=== PATIENT | female | born 1940 | race Asian ===

== ENCOUNTER 2016-06-18 10:58 | Outpatient (CLI) | payer MEDICARE, OTHER | END 2016-06-18 10:59 | disposition home or self-care (01) | DX: R60.9 Edema, unspecified (principal) ==

== ENCOUNTER 2016-08-02 14:41 | Outpatient (CLI) | payer MEDICARE, OTHER ==
[2016-08-02 18:51] LABS: BASOPHILS % (AUTO) 0.7 %; EOSINOPHILS # (AUTO) 0.1 10^3/uL (0.0-0.7); EOSINOPHILS % (AUTO) 1.3 %; HCT - HEMATOCRIT 35.7 % (37.0-47.0); HGB - HEMOGLOBIN 11.5 g/dL (12.0-16.0); LYMPHOCYTES # (AUTO) 1.3 10^3/uL (1.5-3.5); LYMPHOCYTES % (AUTO) 25.5 %; MEAN CORPUSCULAR HEMOGLOBIN 27.4 pg (27.0-31.0); MEAN CORPUSCULAR HGB CONC 32.2 g/dL (32.0-36.0); MEAN CORPUSCULAR VOLUME 85.2 fL (81.0-99.0); MEAN PLATELET VOLUME 9.7 fL (7.9-10.8); MONOCYTES # (AUTO) 0.4 10^3/uL (0.0-1.0); MONOCYTES % (AUTO) 6.9 %; NEUTROPHILS # (AUTO) 3.4 10^3/uL (1.5-6.6); NEUTROPHILS % (AUTO) 65.6 %; RED BLOOD COUNT 4.19 10^6/uL (4.20-5.40); RED CELL DISTRIBUTION WIDTH 14.5 % (12.0-15.0); UNCORRECTED WHITE BLOOD COUNT 5.2 x10^3/uL; WHITE BLOOD COUNT 5.2 x10^3/uL (4.8-10.8)
[2016-08-02 19:04] LABS: ALBUMIN/GLOBULIN RATIO 1.3 (1.0-2.2); BILIRUBIN,TOTAL 0.7 mg/dL (0.2-1.0); CALCIUM 9.5 mg/dL (8.5-10.3); POTASSIUM 4.4 mmol/L (3.5-5.0); TOTAL PROTEIN 6.8 g/dL (6.7-8.2)
== END 2016-08-02 23:59 | disposition home or self-care (01) ==
LOC: LAB.WCP 14:41
PROVIDERS: ATTEND Family Medicine
DX: M35.3 Polymyalgia rheumatica (principal); M62.82 Rhabdomyolysis
CPT/HCPCS: 36415; 80053; 81599; 82550; 85025

== ENCOUNTER 2016-10-27 08:10 | Outpatient (CLI) | payer MEDICARE, OTHER ==
[2016-10-27 13:16] LABS: ALBUMIN/GLOBULIN RATIO 1.4 (1.0-2.2); BILIRUBIN,TOTAL 0.4 mg/dL (0.2-1.0); BUN - BLOOD UREA NITROGEN 27 mg/dL (6-20); CALCIUM 9.5 mg/dL (8.5-10.3); CARBON DIOXIDE - CO2 25 mmol/L (21-32); CHLORIDE 105 mmol/L (101-111); CHOL/HDL RATIO 4.6 (<4.4); CHOLESTEROL 232 mg/dL; CREATININE 1.2 mg/dL (0.4-1.0); GFR - MDRD 44 (>89); GLUCOSE 88 mg/dL (70-100); HDL CHOLESTEROL 50 mg/dL; POTASSIUM 3.8 mmol/L (3.5-5.0); SODIUM 137 mmol/L (135-145); TOTAL PROTEIN 6.9 g/dL (6.7-8.2); TRIGLYCERIDES 157 mg/dL; VLDL CHOLESTEROL 31 mg/dL
== END 2016-10-27 08:11 | disposition home or self-care (01) ==
LOC: LAB.WCP 08:10
PROVIDERS: ATTEND Physician Assistant Medical
DX: M35.3 Polymyalgia rheumatica (principal); E78.5 Hyperlipidemia, unspecified
CPT/HCPCS: 36415; 80053; 80061

== ENCOUNTER 2017-03-01 09:50 | Outpatient (CLI) | payer MEDICARE, OTHER ==
[2017-03-01 13:30] LABS: ALBUMIN 4.2 g/dL (3.2-5.5); ALBUMIN/GLOBULIN RATIO 1.3 (1.0-2.2); ALKALINE PHOSPHATASE 60 IU/L (42-121); ALT ALANINE AMINOTRANSFERASE 19 IU/L (10-60); AST ASPARTATE AMINOTRANSFERASE 26 IU/L (10-42); BILIRUBIN,TOTAL 0.5 mg/dL (0.2-1.0); BUN - BLOOD UREA NITROGEN 20 mg/dL (6-20); CALCIUM 9.4 mg/dL (8.5-10.3); CARBON DIOXIDE - CO2 27 mmol/L (21-32); CHLORIDE 105 mmol/L (101-111); CHOL/HDL RATIO 3.8 (<4.4); CHOLESTEROL 292 mg/dL; CREATININE 1.2 mg/dL (0.4-1.0); GFR - MDRD 44 (>89); GLUCOSE 90 mg/dL (70-100); HDL CHOLESTEROL 77 mg/dL; LDL CHOLESTEROL,CALCULATED 194 mg/dL; LDL/HDL RATIO 2.5 (<4.4); SODIUM 136 mmol/L (135-145); TOTAL PROTEIN 7.5 g/dL (6.7-8.2); VLDL CHOLESTEROL 21 mg/dL
== END 2017-03-01 09:51 | disposition home or self-care (01) ==
LOC: LAB.WCP 09:50
PROVIDERS: ATTEND Physician Assistant Medical
DX: E78.5 Hyperlipidemia, unspecified (principal)
CPT/HCPCS: 36415; 80053; 80061

== ENCOUNTER 2017-04-01 08:00 | Outpatient (CLI) | payer OTHER, MEDICARE ==
[2017-04-01 19:05] LABS: BASOPHILS % (AUTO) 0.1 %; EOSINOPHILS % (AUTO) 0.4 %; HGB - HEMOGLOBIN 11.3 g/dL (12.0-16.0); LYMPHOCYTES # (AUTO) 1.3 10^3/uL (1.5-3.5); LYMPHOCYTES % (AUTO) 13.2 %; MEAN CORPUSCULAR HGB CONC 32.3 g/dL (32.0-36.0); MEAN CORPUSCULAR VOLUME 83.6 fL (81.0-99.0); MEAN PLATELET VOLUME 9.8 fL (7.9-10.8); MONOCYTES # (AUTO) 0.6 10^3/uL (0.0-1.0); MONOCYTES % (AUTO) 5.5 %; NEUTROPHILS # (AUTO) 8.1 10^3/uL (1.5-6.6); NEUTROPHILS % (AUTO) 80.8 %; PLT - PLATELET COUNT 194 10^3/uL (130-450); RED CELL DISTRIBUTION WIDTH 14.3 % (12.0-15.0); WHITE BLOOD COUNT 10.1 x10^3/uL (4.8-10.8)
[2017-04-01 19:17] LABS: ALBUMIN 4.1 g/dL (3.2-5.5); ALBUMIN/GLOBULIN RATIO 1.5 (1.0-2.2); BILIRUBIN,TOTAL 0.8 mg/dL (0.2-1.0); CALCIUM 9.5 mg/dL (8.5-10.3); CREATININE 1.3 mg/dL (0.4-1.0); TOTAL PROTEIN 6.9 g/dL (6.7-8.2)
== END 2017-04-01 08:01 | disposition home or self-care (01) ==
LOC: LAB.WCP 08:00
PROVIDERS: ATTEND Family Medicine
DX: K92.2 Gastrointestinal hemorrhage, unspecified (principal)
CPT/HCPCS: 36415; 80053; 82150; 83690; 85025

== ENCOUNTER 2017-06-15 08:00 | Outpatient (CLI) | payer OTHER, MEDICARE ==
[2017-06-15 13:59] LABS: ALBUMIN 4.1 g/dL (3.2-5.5); ALBUMIN/GLOBULIN RATIO 1.4 (1.0-2.2); ALKALINE PHOSPHATASE 54 IU/L (42-121); ALT ALANINE AMINOTRANSFERASE 17 IU/L (10-60); AST ASPARTATE AMINOTRANSFERASE 24 IU/L (10-42); BILIRUBIN,TOTAL 0.4 mg/dL (0.2-1.0); BUN - BLOOD UREA NITROGEN 25 mg/dL (6-20); CALCIUM 9.3 mg/dL (8.5-10.3); CARBON DIOXIDE - CO2 26 mmol/L (21-32); CHLORIDE 107 mmol/L (101-111); CHOL/HDL RATIO 3.9 (<4.4); CHOLESTEROL 260 mg/dL; CK- CREATINE KINASE 138 IU/L (22-269); CREATININE 1.3 mg/dL (0.4-1.0); GFR - MDRD 40 (>89); GLUCOSE 90 mg/dL (70-100); HDL CHOLESTEROL 66 mg/dL; LDL CHOLESTEROL,CALCULATED 174 mg/dL; LDL/HDL RATIO 2.6 (<4.4); SODIUM 139 mmol/L (135-145); VLDL CHOLESTEROL 20 mg/dL
== END 2017-06-15 08:01 | disposition home or self-care (01) ==
LOC: LAB.WCP 08:00
PROVIDERS: ATTEND Physician Assistant Medical
DX: E78.5 Hyperlipidemia, unspecified (principal)
CPT/HCPCS: 36415; 80053; 80061; 82550; 83721

== ENCOUNTER 2017-09-13 08:59 | Outpatient (CLI) | payer OTHER, MEDICARE ==
[2017-09-13 13:02] LABS: ALBUMIN 3.5 g/dL (3.2-5.5); ALBUMIN/GLOBULIN RATIO 1.3 (1.0-2.2); ALKALINE PHOSPHATASE 43 IU/L (42-121); ALT ALANINE AMINOTRANSFERASE 18 IU/L (10-60); AST ASPARTATE AMINOTRANSFERASE 24 IU/L (10-42); BILIRUBIN,TOTAL 0.9 mg/dL (0.2-1.0); BUN - BLOOD UREA NITROGEN 27 mg/dL (6-20); CALCIUM 8.9 mg/dL (8.5-10.3); CARBON DIOXIDE - CO2 27 mmol/L (21-32); CHLORIDE 107 mmol/L (101-111); CHOL/HDL RATIO 2.5 (<4.4); CHOLESTEROL 148 mg/dL; CREATININE 1.3 mg/dL (0.4-1.0); GFR - MDRD 40 (>89); GLUCOSE 85 mg/dL (70-100); HDL CHOLESTEROL 60 mg/dL; LDL CHOLESTEROL,CALCULATED 66 mg/dL; LDL/HDL RATIO 1.1 (<4.4); SODIUM 138 mmol/L (135-145); TOTAL PROTEIN 6.2 g/dL (6.7-8.2); VLDL CHOLESTEROL 22 mg/dL
== END 2017-09-13 09:00 | disposition home or self-care (01) ==
LOC: LAB.WCP 08:59
PROVIDERS: ATTEND Physician Assistant Medical
DX: E78.5 Hyperlipidemia, unspecified (principal)
CPT/HCPCS: 36415; 80053; 80061; 83721

== ENCOUNTER 2017-10-05 23:25 | Emergency (ER) | payer OTHER, MEDICARE ==
[2017-10-06] MEDS ORDERED: ONDANSETRON ODT 4 MG TABLET TL STA (00:02)
[2017-10-06 00:22] LABS: BASOPHILS % (AUTO) 0.1 %; HGB - HEMOGLOBIN 10.9 g/dL (12.0-16.0); LYMPHOCYTES # (AUTO) 0.4 10^3/uL (1.5-3.5); LYMPHOCYTES % (AUTO) 6.9 %; MEAN CORPUSCULAR HEMOGLOBIN 28.1 pg (27.0-31.0); MEAN CORPUSCULAR HGB CONC 33.4 g/dL (32.0-36.0); MEAN CORPUSCULAR VOLUME 84.4 fL (81.0-99.0); MONOCYTES % (AUTO) 0.5 %; NEUTROPHILS # (AUTO) 5.7 10^3/uL (1.5-6.6); NEUTROPHILS % (AUTO) 92.5 %; PLT - PLATELET COUNT 167 10^3/uL (130-450); RED BLOOD COUNT 3.86 10^6/uL (4.20-5.40); WHITE BLOOD COUNT 6.2 x10^3/uL (4.8-10.8)
[2017-10-06 00:36] LABS: ALBUMIN 4.4 g/dL (3.2-5.5); ALBUMIN/GLOBULIN RATIO 1.3 (1.0-2.2); BILIRUBIN,TOTAL 0.6 mg/dL (0.2-1.0); CALCIUM 9.7 mg/dL (8.5-10.3); CREATININE 1.4 mg/dL (0.4-1.0); MAGNESIUM 2.1 mg/dL (1.7-2.8); PHOSPHORUS 1.8 mg/dL (2.5-4.6); TOTAL PROTEIN 7.7 g/dL (6.7-8.2)
[2017-10-06 00:53] LABS: BILIRUBIN,URINE NEGATIVE (NEGATIVE); GLUCOSE, URINE (UA) NEGATIVE (NEGATIVE); KETONES,URINE (UA) NEGATIVE (NEGATIVE); LEUKOCYTE ESTERASE, URINE NEGATIVE (NEGATIVE); NITRITE,URINE NEGATIVE (NEGATIVE); OCCULT BLOOD,URINE SMALL (NEGATIVE); PH,URINE 5.5 PH (5.0-7.5); PROTEIN,URINE 100 mg/dL (NEGATIVE); UROBILINOGEN,URINE 0.2 (NORMAL) E.U./dL (NORMAL)
[2017-10-06 01:03] LABS: CLARITY,URINE CLEAR (CLEAR)
[2017-10-06 01:05] LABS: BACTERIA,URINE Rare /HPF (None Seen); MUCUS,URINE Few Strands; RBC,URINE 0-5 /HPF (0-5); SQUAMOUS EPITHELIAL CELL,UR FEW Squamous (<= Few)
[2017-10-06] MEDS ORDERED: SODIUM CHLORIDE 0.9% 1,000 ML IV ONE (01:47)
--- NOTE | 2017-10-06 02:17 | ED Physician Documentation ---
History of Present Illness - Stated complaint Stated Complaint: WEAKNESS/SHAKY - Chief complaint Chief Complaint: General - History obtained from History obtained from: Patient - History of Present Illness Timing: Today - Additonal information Additional information: Patient is a 77 year old female who is presenting to the emergency department for not feeling well. Patient saw her doctor earlier today for knee pain evaluation. Patient went home feeling ok but this evening patient developed nausea, vomiting and generalized weakness. Review of Systems Ten Systems: 10 systems reviewed and negative Constitutional: reports: Chills. denies: Fever GI: reports: Nausea, Vomiting. 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 - Present Medications Home Medications: Ambulatory Orders Medication Instructions Recorded Confirmed Naproxen Sodium [Aleve] 220 mg PO DAILY 06/29/13 06/29/13 Aspirin [Aspir-Low] 81 mg PO ONCE 12/25/15 12/25/15 Atorvastatin Calcium PO ONCE 12/25/15 Calcium Carbonate/Vitamin D3 PO ONCE 12/25/15 [Caltrate 600 Plus D3 Tablet] Losartan Potassium [Cozaar] 100 mg PO 12/25/15 Ondansetron Odt [Zofran] 4 mg TL Q6H PRN #14 tablet 10/06/17 - Allergies Allergies/Adverse Reactions: Allergies Allergy/AdvReac Type Severity Reaction Status Date / Time No Known Drug Allergies Allergy Verified 06/26/12 14:27 - Social History Does the pt smoke?: No Smoking Status: Never smoker Does the pt drink ETOH?: No Does the pt have substance abuse?: No - Immunizations Immunizations are current?: Yes - POLST Patient has POLST: No PD ED PE NORMAL - Vitals Vital signs reviewed: Yes - General General: Alert and oriented X 3, No acute distress, Well developed/nourished - HEENT HEENT: Atraumatic, PERRL - Neck Neck: Supple, no meningeal sign - Cardiac Cardiac: RRR, No murmur - Respiratory Respiratory: No respiratory distress - Abdomen Abdomen: Soft, Non tender, Non distended - Derm Derm: Normal color, Warm and dry, No rash - Extremities Extremities: No deformity - Neuro Neuro: Alert and oriented X 3, appeals representative 2-12 intact, No motor deficit, No sensory deficit, Normal speech Eye Opening: Spontaneous Motor: Obeys Commands Verbal: Oriented GCS Score: 15 - Psych Psych: Normal mood Results - Vitals Vitals: Vital Signs - 24 hr 10/05/17 10/06/17 23:52 01:16 Temperature 36.2 C L 36.6 C Heart Rate 76 71 Respiratory 18 18 Rate Blood Pressure 160/68 H 150/69 H O2 Saturation 100 99 Oxygen O2 Source Room air - EKG (time done) 0213 Rate: Rate (enter#) (69) Rhythm: NSR [place]: Normal Intervals: Normal [place] QRS: Normal Ischemia: Normal ST segments Compare to prior EKG: Old EKG unavailable - Labs Labs: Laboratory Tests 10/06/17 10/06/17 10/06/17 00:20 00:20 00:20 WBC 6.2 RBC 3.86 L Hgb 10.9 L Hct 32.6 L MCV 84.4 MCH 28.1 MCHC 33.4 RDW 15.0 Plt Count 167 MPV 9.0 Neut # (Auto) 5.7 Lymph # (Auto) 0.4 L [place] # (Auto) 0.0 Eos # (Auto) 0.0 Baso # (Auto) 0.0 Absolute Nucleated RBC 0.00 Nucleated RBC % 0.0 Sodium 136 Potassium 4.0 Chloride 102 Carbon Dioxide 24 Anion Gap 10.0 BUN 28 H Creatinine 1.4 H Estimated GFR (MDRD) 36 L Glucose 210 H Calcium 9.7 Phosphorus 1.8 L Magnesium 2.1 Total Bilirubin 0.6 AST 42 ALT 25 Alkaline Phosphatase 59 Troponin I 0.04 Total Protein 7.7 Albumin 4.4 Globulin 3.3 Albumin/Globulin Ratio 1.3 Lipase 43 Urine Color Urine Clarity Urine pH Ur Specific [place] Urine Protein Urine Glucose (UA) Urine Ketones Urine Occult Blood Urine Nitrite Urine Bilirubin Urine Urobilinogen Ur Leukocyte Esterase Urine RBC Urine WBC Ur Squamous Epith Cells Urine Bacteria Urine Mucus Ur Microscopic Review Urine Culture Comments 10/06/17 00:45 WBC RBC Hgb Hct MCV MCH MCHC RDW Plt Count MPV Neut # (Auto) Lymph # (Auto) [place] # (Auto) Eos # (Auto) Baso # (Auto) Absolute Nucleated RBC Nucleated RBC % Sodium Potassium Chloride Carbon Dioxide Anion Gap BUN Creatinine Estimated GFR (MDRD) Glucose Calcium Phosphorus Magnesium Total Bilirubin AST ALT Alkaline Phosphatase Troponin I Total Protein Albumin Globulin Albumin/Globulin Ratio Lipase Urine Color YELLOW Urine Clarity CLEAR Urine pH 5.5 Ur Specific [place] 1.025 Urine Protein 100 H Urine Glucose (UA) NEGATIVE Urine Ketones NEGATIVE Urine Occult Blood SMALL H Urine Nitrite NEGATIVE Urine Bilirubin NEGATIVE Urine Urobilinogen 0.2 (NORMAL) Ur Leukocyte Esterase NEGATIVE Urine RBC 0-5 Urine WBC 0-3 Ur Squamous Epith Cells FEW Squamous Urine Bacteria Rare Urine Mucus Few Strands Ur Microscopic Review INDICATED Urine Culture Comments NOT INDICATED PD MEDICAL DECISION MAKING - ED course Complexity details: reviewed old records, reviewed results, re-evaluated patient , considered differential, d/w patient ED course: Edyta was seen and examined at bedside. labs were drawn and urine was collected. Patient was treated with zofran for nausea. ekg was performed and showed normal sinus. ns bolus was ordered for the patient but iv access was difficult to obtain. patient's symptoms resolved with the zofran and she stated she would rather do oral hydration. patient required no further work up at this time and was stable for discharge with outpatient follow up. - Sepsis Event Vital Signs: Vital Signs - 24 hr 10/05/17 10/06/17 23:52 01:16 Temperature 36.2 C L 36.6 C Heart Rate 76 71 Respiratory 18 18 Rate Blood Pressure 160/68 H 150/69 H O2 Saturation 100 99 Oxygen O2 Source Room air Departure - Departure Disposition: 01 Home, Self Care Clinical Impression: Nausea & vomiting Condition: Good Instructions: ED Diet Vomiting Diarrhea Follow-Up: Claire Morrow PA-C [Primary Care Provider] - As Needed Prescriptions: Ondansetron Odt [Zofran] 4 mg TL Q6H PRN #14 tablet PRN Reason: Nausea / Vomiting Comments: Your diagnostics today were within normal limits. there are no acute abnormalities. You are being prescribed zofran for nausea. It is important that you stay well hydrated and monitor your kidney function with your doctor. You may return to the emergency department at any time for new, worsening or uncontrollable symptoms.
[2017-10-06 02:40] VITALS: BP 141/67
== END 2017-10-06 02:59 | disposition home or self-care (01) ==
LOC: ED 23:25
DX: R11.2 Nausea with vomiting, unspecified (principal); I10 Essential (primary) hypertension; Z79.82 Long term (current) use of aspirin; Z79.1 Long term (current) use of non-steroidal anti-inflammatories (NSAID)
CPT/HCPCS: 36415; 80053; 81001; 83690; 83735; 84100; 84484; 85025; 93005; 99283; Q0162; 81003; 87086

== ENCOUNTER 2018-03-15 08:45 | Outpatient (CLI) | payer OTHER, MEDICARE ==
[2018-03-15 13:01] LABS: BASOPHILS % (AUTO) 0.3 %; EOSINOPHILS # (AUTO) 0.1 10^3/uL (0.0-0.7); EOSINOPHILS % (AUTO) 1.6 %; HGB - HEMOGLOBIN 10.5 g/dL (12.0-16.0); LYMPHOCYTES # (AUTO) 1.5 10^3/uL (1.5-3.5); MEAN CORPUSCULAR HEMOGLOBIN 28.3 pg (27.0-31.0); MEAN CORPUSCULAR HGB CONC 33.5 g/dL (32.0-36.0); MEAN CORPUSCULAR VOLUME 84.6 fL (81.0-99.0); MEAN PLATELET VOLUME 9.8 fL (7.9-10.8); MONOCYTES # (AUTO) 0.5 10^3/uL (0.0-1.0); MONOCYTES % (AUTO) 6.8 %; NEUTROPHILS # (AUTO) 4.5 10^3/uL (1.5-6.6); NEUTROPHILS % (AUTO) 68.3 %; PLT - PLATELET COUNT 162 10^3/uL (130-450); RED CELL DISTRIBUTION WIDTH 15.4 % (12.0-15.0); WHITE BLOOD COUNT 6.6 x10^3/uL (4.8-10.8)
[2018-03-15 13:26] LABS: ALBUMIN 3.9 g/dL (3.2-5.5); ALKALINE PHOSPHATASE 41 IU/L (42-121); ALT ALANINE AMINOTRANSFERASE 19 IU/L (10-60); AST ASPARTATE AMINOTRANSFERASE 24 IU/L (10-42); BILIRUBIN,TOTAL 0.8 mg/dL (0.2-1.0); BUN - BLOOD UREA NITROGEN 26 mg/dL (6-20); CALCIUM 8.8 mg/dL (8.5-10.3); CARBON DIOXIDE - CO2 27 mmol/L (21-32); CHLORIDE 105 mmol/L (101-111); CREATININE 1.1 mg/dL (0.4-1.0); GFR - MDRD 48 (>89); GLUCOSE 93 mg/dL (70-100); SODIUM 137 mmol/L (135-145); TOTAL PROTEIN 6.4 g/dL (6.7-8.2)
[2018-03-15 13:27] LABS: ALBUMIN/GLOBULIN RATIO 1.6 (1.0-2.2); CHOL/HDL RATIO 2.3 (<4.4); CHOLESTEROL 149 mg/dL; HDL CHOLESTEROL 66 mg/dL; LDL CHOLESTEROL,CALCULATED 67 mg/dL; VLDL CHOLESTEROL 16 mg/dL
== END 2018-03-15 23:59 | disposition home or self-care (01) ==
LOC: LAB.WCP 08:45
PROVIDERS: ATTEND Physician Assistant Medical
DX: E78.5 Hyperlipidemia, unspecified (principal); D64.9 Anemia, unspecified
CPT/HCPCS: 36415; 80053; 80061; 83721; 85025

== ENCOUNTER 2018-06-14 13:16 | Outpatient (CLI) | payer OTHER, MEDICARE ==
--- NOTE | 2018-06-14 14:44 | Mammography Report ---
Reason: SACROCOCCYGEAL DISORDERS, NOT ELSEWHERE CLASSIFIED Procedure Date: 06/14/2018 Accession Number: [id number] / [id number] Procedure: MGN - Screening Mammo Dig Bilat CPT Code: FULL RESULT: EXAM: Screening Mammo Dig Bilat DATE: 06/14/2018 1:40 PM CLINICAL HISTORY: Routine screening TECHNIQUE: (B) - Bilateral CC and MLO views were obtained. COMPARISON: 11/26/2015, 01/18/2014, 01/06/2013 PARENCHYMAL PATTERN: (A) - The breasts demonstrate scattered fibroglandular densities bilaterally. FINDINGS: There is no significant interval change. There are no suspicious masses, calcifications, or areas of distortion. IMPRESSION: Negative examination. BI-RADS category 1. RECOMMENDATION: (ANNUAL) - Recommend routine annual screening mammography. BI-RADS CATEGORY: (1) - Negative. STANDARD QUALIFYING STATEMENTS: 1. This examination was not reviewed with the aid of Computer-Aided Detection (CAD). 2. A negative or benign imaging report should not preclude biopsy if clinically suspicious findings are present. 3. Dense breasts may obscure an underlying neoplasm. 4. This examination was reviewed without the aid of 3D breast imaging (tomosynthesis).
== END 2018-06-14 13:17 | disposition home or self-care (01) ==
LOC: DI.N 13:16
DX: Z12.31 Encounter for screening mammogram for malignant neoplasm of breast (principal)
CPT/HCPCS: 77067

== ENCOUNTER 2018-09-22 08:48 | Outpatient (CLI) | payer OTHER, MEDICARE ==
[2018-09-22 12:01] LABS: BASOPHILS % (AUTO) 0.6 %; EOSINOPHILS # (AUTO) 0.1 10^3/uL (0.0-0.7); LYMPHOCYTES # (AUTO) 1.9 10^3/uL (1.5-3.5); LYMPHOCYTES % (AUTO) 35.7 %; MEAN CORPUSCULAR HEMOGLOBIN 26.7 pg (27.0-31.0); MEAN CORPUSCULAR VOLUME 86.2 fL (81.0-99.0); MONOCYTES # (AUTO) 0.4 10^3/uL (0.0-1.0); MONOCYTES % (AUTO) 6.6 %; NEUTROPHILS % (AUTO) 54.9 %; PLT - PLATELET COUNT 166 10^3/uL (130-450); RED BLOOD COUNT 4.12 10^6/uL (4.20-5.40); RED CELL DISTRIBUTION WIDTH 14.6 % (12.0-15.0); WHITE BLOOD COUNT 5.4 x10^3/uL (4.8-10.8)
[2018-09-22 12:30] LABS: % IRON SATURATION 19 % (20-50); ALBUMIN 3.8 g/dL (3.2-5.5); ALBUMIN/GLOBULIN RATIO 1.2 (1.0-2.2); ALKALINE PHOSPHATASE 55 IU/L (42-121); ALT ALANINE AMINOTRANSFERASE 18 IU/L (10-60); AST ASPARTATE AMINOTRANSFERASE 25 IU/L (10-42); BILIRUBIN,TOTAL 0.5 mg/dL (0.2-1.0); BUN - BLOOD UREA NITROGEN 20 mg/dL (6-20); CALCIUM 9.2 mg/dL (8.5-10.3); CARBON DIOXIDE - CO2 25 mmol/L (21-32); CHLORIDE 108 mmol/L (101-111); CHOL/HDL RATIO 2.3 (<4.4); CHOLESTEROL 166 mg/dL; CREATININE 1.2 mg/dL (0.4-1.0); GFR - MDRD 43 (>89); GLUCOSE 86 mg/dL (70-100); HDL CHOLESTEROL 73 mg/dL; IRON 59 ug/dL (28-170); LDL CHOLESTEROL,CALCULATED 78 mg/dL; LDL/HDL RATIO 1.1 (<4.4); SODIUM 141 mmol/L (135-145); TOTAL IRON BINDING CAPACITY 318 ug/dL (250-450); TRANSFERRIN 227 mg/dL (192-382); VLDL CHOLESTEROL 15 mg/dL
[2018-09-22 12:39] LABS: FERRITIN 26.5 ng/mL (11.0-306.8)
[2018-09-22 12:42] LABS: FOLATE 10.84 ng/mL (5.90 - >24.8)
== END 2018-09-22 23:59 | disposition home or self-care (01) ==
LOC: LAB.WCP 08:48
PROVIDERS: ATTEND Physician Assistant Medical
DX: E78.5 Hyperlipidemia, unspecified (principal); D64.9 Anemia, unspecified
CPT/HCPCS: 36415; 80053; 80061; 82607; 82728; 82746; 83540; 83721; 84466; 85025

== ENCOUNTER 2019-01-19 12:56 | Emergency (ER) | payer BC, MEDICARE, OTHER ==
[2019-01-19] MEDS ORDERED: BUPIVACAINE 0.5% PF 30 ML VIAL SUBQ ONE (13:36)
[2019-01-19] MEDS ORDERED: LIDOCAINE 1%-EPI 1:100000 20 ML MDV SUBQ STA (13:36)
--- NOTE | 2019-01-19 13:38 | ED Physician Documentation ---
PD HPI LOWER EXT INJURY - Stated complaint Stated Complaint: knee pain - Chief complaint Chief Complaint: Ext Problem - History of Present Illness PD HPI LOW EXT INJURY LOCATION: Left (78-year-old woman has been having ongoing problems with her left knee for some time. She saw an orthopedic surgeon a couple of months ago. It sounds like she was diagnosed with And osteoarthritic effusion. X-rays done in November showed DJD with a Kellgren/Elliott score of 2. She had a cortisone injection in the knee which was helpful for a little bit, more recently she is had more swelling. Anterior knee pain. She was seen in urgent care 6 days ago and prescribed prednisone which is only been mildly helpful. 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 - Present Medications Home Medications: Ambulatory Orders Medication Instructions Recorded Confirmed Naproxen Sodium [Aleve] 220 mg PO DAILY 06/29/13 06/29/13 Aspirin [Aspir-Low] 81 mg PO ONCE 12/25/15 12/25/15 Atorvastatin Calcium PO ONCE 12/25/15 Calcium Carbonate/Vitamin D3 PO ONCE 12/25/15 [Caltrate 600 Plus D3 Tablet] Losartan Potassium [Cozaar] 100 mg PO 12/25/15 Ondansetron Odt [Zofran] 4 mg TL Q6H PRN #14 tablet 10/06/17 Hydrocodone/Acetaminophen 1 - 2 each PO Q6H PRN #14 tablet 01/19/19 [Hydrocodon-Acetaminophen 5-325] Meloxicam [Mobic] 7.5 mg PO BID PRN #20 tablet 01/19/19 - Allergies Allergies/Adverse Reactions: Allergies Allergy/AdvReac Type Severity Reaction Status Date / Time No Known Drug Allergies Allergy Verified 01/19/19 13:06 - Social History Does the pt smoke?: No Smoking Status: Never smoker Does the pt drink ETOH?: No Does the pt have substance abuse?: No - Immunizations Immunizations are current?: Yes - POLST Patient has POLST: No PD ED PE NORMAL - Vitals Vital signs reviewed: Yes - General General: Alert and oriented X 3, No acute distress - Extremities Extremities: Other (There is a moderate to large left knee effusion with no bony tenderness. No warmth or redness. Passive range of motion is relatively painless but starts to become painful with more significant flexion.) - Neuro Neuro: Alert and oriented X 3, Normal speech Results - Vitals Vitals: Vital Signs - 24 hr 01/19/19 01/19/19 13:06 14:15 Temperature 36.6 C Heart Rate 78 76 Respiratory 16 16 Rate Blood Pressure 155/66 H 150/70 H O2 Saturation 99 100 Oxygen O2 Source Room air - Labs Labs: Microbiology 01/19/19 14:00 Body Fluid Culture - Preliminary Synovial Fluid Laboratory Tests 01/19/19 01/19/19 14:00 14:00 Fluid Source SYNOVIAL Fluid Color YELLOW Fluid Clarity CLOUDY Fluid WBC 84178 Fluid RBC 3000 Fluid Neutrophils % 11 Fluid Lymphocytes % 72 Fluid Monocytes % 12 Fluid Macrophages % 5 Fluid Crystals NONE SEEN Procedures - General procedure General procedure: Verbal informed consent the left knee was prepped and draped using ChloraPrep and using a medial approach she was initially anesthetized with 1% lidocaine and then 30 mL of normal looking knee fluid was evacuated from the left knee with a 18-gauge needle and sent for crystals, culture, cell count. Then using continued sterile technique 5 mL of Marcaine was instilled. Departure - Departure Disposition: 01 Home, Self Care Clinical Impression: Knee effusion, left Condition: Good Record reviewed to determine appropriate education?: Yes Instructions: ED Effusion Knee Follow-Up: Moshe Mcleod MD [Provider Admit Priv/Credential] - Prescriptions: Hydrocodone/Acetaminophen [Hydrocodon-Acetaminophen 5-325] 1 - 2 each PO Q6H PRN #14 tablet PRN Reason: pain Meloxicam [Mobic] 7.5 mg PO BID PRN #20 tablet PRN Reason: Pain Comments: If there are any important findings on the knee fluid I will call you, given the history I expect though that this is a simple "arthritic" effusion. You can follow-up with an orthopedic surgeon, I will give you a name and number. Also I am giving you a different anti-inflammatory and some pain medication. Return for new or worsening symptoms. Discharge Date/Time: 01/19/19 14:15
[2019-01-19] MEDS ORDERED: LIDOCAINE 1%-EPI 1:100000 20 ML MDV ONE (13:41)
[2019-01-19] MEDS ORDERED: BUPIVACAINE 0.5%-EPI 1:200000 PF 10 ML VIAL SUBQ STA (13:43)
[2019-01-19] MEDS ORDERED: BUPIVACAINE 0.25% PF 30 ML VIAL SUBQ STA (13:43)
[2019-01-19] MEDS ORDERED: BUPIVACAINE 0.5% PF 10 ML VIAL SUBQ ONE (14:00)
[2019-01-19 14:16] VITALS: BP 150/70
[2019-01-19 15:06] LABS: BF SOURCE SYNOVIAL; CC,BF RBC 3000 /mm^3
[2019-01-19 15:07] LABS: BF COLOR YELLOW
[2019-01-19 15:17] LABS: LYMPHOCYTES %,BODY FLUID 72; MACROPHAGES %,BODY FLUID 5 %; MONOCYTES %,BODY FLUID 12 %
== END 2019-01-19 14:15 | disposition home or self-care (01) ==
LOC: ED 12:56
DX: M17.12 Unilateral primary osteoarthritis, left knee (principal); M25.462 Effusion, left knee; I10 Essential (primary) hypertension; Z79.82 Long term (current) use of aspirin
CPT/HCPCS: 20610; 87070; 87205; 89051; 89060

== ENCOUNTER 2019-01-22 10:03 | Emergency (ER) | payer BC, MEDICARE, OTHER ==
[2019-01-22] MEDS ORDERED: BUPIVACAINE 0.5% PF 10 ML VIAL SUBQ STA (10:32)
--- NOTE | 2019-01-22 11:32 | ED Physician Documentation ---
PD HPI LOWER EXT INJURY - Stated complaint Stated Complaint: KNEE PX - Chief complaint Chief Complaint: Ext Problem - History obtained from History obtained from: Patient, Family - History of Present Illness PD HPI LOW EXT INJURY LOCATION: Right, Knee Type of injury: Other (no injury). No: Fall, Twist, Blunt / blow, Penetrating / stab / GSW, Laceration, Puncture wound, Foreign body, Crush, Burn Where injury occurred: Home Timing - onset: How many weeks ago (1) Timing - duration: Weeks (1) Timing - details: Gradual onset, Still present, Other (worsened) Severity Comments: moderate Improved by: Immobilization Worsened by: Moving, Palpating, Other (weight bearing, states she cannot walk) Associated symptoms: Swelling. No: Weakness, Numbness, Tingling, Discolored Contributing factors: No: Anticoagulated, Prior ortho surgery, Prosthetic joint, Work related Similar symptoms before: Work up / diagnostics (was seen in the ED 3 days ago for the same symptoms and had a joint arthrocentesis performed with cell count and cultures sent which were negative and suggestive of likely inflammatory arthritis.) - Treatment prior to arrival Treatment prior to arrival: meloxicam and vicodin without relief. Pt had fluid taken off her knee 3 days ago but it recurred. Review of Systems Ten Systems: 10 systems reviewed and negative Constitutional: denies: Fever Cardiac: reports: Reviewed and negative Respiratory: reports: Reviewed and negative GI: reports: Reviewed and negative Skin: reports: Reviewed and negative. denies: Rash Musculoskeletal: reports: Joint pain, Joint swelling, Pain with weight bearing Neurologic: denies: Generalized weakness, Focal weakness, Numbness Endocrine: reports: Reviewed and negative. 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 - Present Medications Home Medications: Ambulatory Orders Medication Instructions Recorded Confirmed Naproxen Sodium [Aleve] 220 mg PO DAILY 06/29/13 06/29/13 Aspirin [Aspir-Low] 81 mg PO ONCE 12/25/15 12/25/15 Atorvastatin Calcium PO ONCE 12/25/15 Calcium Carbonate/Vitamin D3 PO ONCE 12/25/15 [Caltrate 600 Plus D3 Tablet] Losartan Potassium [Cozaar] 100 mg PO 12/25/15 Ondansetron Odt [Zofran] 4 mg TL Q6H PRN #14 tablet 10/06/17 Hydrocodone/Acetaminophen 1 - 2 each PO Q6H PRN #14 tablet 01/19/19 [Hydrocodon-Acetaminophen 5-325] Meloxicam [Mobic] 7.5 mg PO BID PRN #20 tablet 01/19/19 - Allergies Allergies/Adverse Reactions: Allergies Allergy/AdvReac Type Severity Reaction Status Date / Time No Known Drug Allergies Allergy Verified 01/22/19 10:13 - Social History Does the pt smoke?: No Smoking Status: Never smoker Does the pt drink ETOH?: No Does the pt have substance abuse?: No - Immunizations Immunizations are current?: Yes - POLST Patient has POLST: No PD ED PE NORMAL - Vitals Vital signs reviewed: Yes - General General: Alert and oriented X 3, No acute distress, Well developed/nourished - HEENT HEENT: Atraumatic, Moist mucous membranes - Neck Neck: Supple, no meningeal sign - Cardiac Cardiac: RRR - Respiratory Respiratory: No respiratory distress - Female Female : Deferred - Rectal Rectal: Deferred - Derm Derm: Normal color, Warm and dry, No rash - Extremities Extremities: No deformity, No calf tenderness / cord - Neuro Neuro: Alert and oriented X 3, No motor deficit, No sensory deficit, Normal speech Eye Opening: Spontaneous Motor: Obeys Commands Verbal: Oriented GCS Score: 15 - Psych Psych: Normal mood, Normal affect PD ED PE EXPANDED - Extremities Extremities: Right knee (swelling present particularly laterall and superiorly. no redness, no warmth. Pt has full active and passive ROm but some pain with flexion and weight bearing. no ligamentous laxity ) Results - Vitals Vitals: Vital Signs - 24 hr 01/22/19 01/22/19 10:10 11:37 Temperature 36.4 C L Heart Rate 69 66 Respiratory 16 18 Rate Blood Pressure 147/77 H 143/69 H O2 Saturation 100 100 Oxygen O2 Source Room air Procedures - Arthrocentesis Joint: Knee, Right Preparation: Consent obtained (verbal consent), Sterile prep and drape, Ultrasound used Anesthesia: Marcaine 0.5% (10cc) Fluid: Clear Aftercare: Dressing applied, No complications, Patient tolerated well - Bedside sono Bedside sono by EMP: R knee US shows a large knee effusion present PD MEDICAL DECISION MAKING - ED course Complexity details: reviewed old records, re-evaluated patient, considered differential, d/w patient, d/w family ED course: ddx- gout, inflammatory arthritis, osteoarthritis, septic joint, bursitis 78 y/o F with a recurrent knee effusion, has outpt f/u with Ortho but pain today is unbearable and pt unable to ambulate due to discomfort. She has no fever, no redness or warmth of the knee to suggest infection. She improved a few days ago with a joint tap. Cell counts and cultures from that time not suggestive of infection. Discussed with pt and family benefits and risks of another tap including infection, bleeding. She would like to go forth with the tap. This was performed without complication. Given cell counts and cultures were sent 3 days ago and were neg and pt's fluid is clear again and her clinical pictures is not suggestive of infection will not resend. Injected joint with bupivacaine and pt given an pearl wrap. She is stable for discharge with outpt f/u and return precautions in case of increasing pain, redness, fever or new concerning symptoms. Departure - Departure Disposition: 01 Home, Self Care Clinical Impression: Effusion, left knee Condition: Stable Record reviewed to determine appropriate education?: Yes Instructions: ED Effusion Knee Follow-Up: your, doctor [Other] Comments: You had a left knee effusion (fluid on the knee) that was drained here. You had a long acting anesthetic injected back into the joint. You should continue your home medications and may use an pearl wrap for pain and support. Return to the ED if you develop a fever or redness or increased pain. Discharge Date/Time: 01/22/19 11:37
[2019-01-22 11:37] VITALS: BP 143/69
== END 2019-01-22 11:37 | disposition home or self-care (01) ==
LOC: ED 10:03
DX: M25.462 Effusion, left knee (principal); M25.562 Pain in left knee; I10 Essential (primary) hypertension; Z79.82 Long term (current) use of aspirin
CPT/HCPCS: 20610

== ENCOUNTER 2019-03-07 09:40 | Outpatient (CLI) | payer BC, MEDICARE, OTHER ==
[2019-03-07 12:03] LABS: BASOPHILS % (AUTO) 0.5 %; EOSINOPHILS # (AUTO) 0.1 10^3/uL (0.0-0.7); EOSINOPHILS % (AUTO) 2.4 %; HGB - HEMOGLOBIN 10.7 g/dL (12.0-16.0); LYMPHOCYTES # (AUTO) 1.4 10^3/uL (1.5-3.5); LYMPHOCYTES % (AUTO) 26.3 %; MEAN CORPUSCULAR HEMOGLOBIN 27.9 pg (27.0-31.0); MEAN CORPUSCULAR HGB CONC 32.1 g/dL (32.0-36.0); MEAN CORPUSCULAR VOLUME 86.9 fL (81.0-99.0); MEAN PLATELET VOLUME 11.4 fL (7.9-10.8); MONOCYTES # (AUTO) 0.4 10^3/uL (0.0-1.0); MONOCYTES % (AUTO) 6.9 %; NEUTROPHILS # (AUTO) 3.5 10^3/uL (1.5-6.6); NEUTROPHILS % (AUTO) 63.5 %; PLT - PLATELET COUNT 195 10^3/uL (130-450); RED BLOOD COUNT 3.83 10^6/uL (4.20-5.40); RED CELL DISTRIBUTION WIDTH 13.8 % (12.0-15.0); WHITE BLOOD COUNT 5.5 x10^3/uL (4.8-10.8)
[2019-03-07 12:30] LABS: ALBUMIN/GLOBULIN RATIO 1.3 (1.0-2.2); ALKALINE PHOSPHATASE 49 IU/L (42-121); ALT ALANINE AMINOTRANSFERASE 20 IU/L (10-60); AST ASPARTATE AMINOTRANSFERASE 24 IU/L (10-42); BILIRUBIN,TOTAL 0.7 mg/dL (0.2-1.0); BUN - BLOOD UREA NITROGEN 24 mg/dL (6-20); CALCIUM 9.1 mg/dL (8.5-10.3); CARBON DIOXIDE - CO2 27 mmol/L (21-32); CHLORIDE 107 mmol/L (101-111); CREATININE 1.2 mg/dL (0.4-1.0); GFR - MDRD 43 (>89); GLUCOSE 93 mg/dL (70-100); SODIUM 139 mmol/L (135-145)
[2019-03-07 12:55] LABS: CRP - C-REACTIVE PROTEIN < 1.0 mg/dL (0-1.0)
[2019-03-07 12:56] LABS: CHOL/HDL RATIO 4.1 (<4.4); CHOLESTEROL 271 mg/dL; HDL CHOLESTEROL 66 mg/dL; LDL CHOLESTEROL,CALCULATED 177 mg/dL; LDL/HDL RATIO 2.7 (<4.4); VLDL CHOLESTEROL 28 mg/dL
== END 2019-03-07 23:59 | disposition home or self-care (01) ==
LOC: LAB.WCP 09:40
PROVIDERS: ATTEND Nurse Practitioner Family
DX: R51 Headache (principal); E78.5 Hyperlipidemia, unspecified
CPT/HCPCS: 36415; 80053; 80061; 83721; 85025; 85651; 86140

== ENCOUNTER 2019-03-15 08:30 | Outpatient (CLI) | payer BC, MEDICARE, OTHER | END 2019-03-15 08:31 | disposition home or self-care (01) | LOC: LAB.WCP 08:30 | PROVIDERS: ATTEND Nurse Practitioner Family | DX: H53.9 Unspecified visual disturbance (principal); R51 Headache | CPT/HCPCS: 36415; 85651; 86140 ==

== ENCOUNTER 2019-03-28 09:44 | Outpatient (CLI) | payer BC, MEDICARE, OTHER ==
[2019-03-28 12:23] LABS: ALBUMIN 3.5 g/dL (3.2-5.5); ALBUMIN/GLOBULIN RATIO 1.1 (1.0-2.2); BILIRUBIN,TOTAL 0.8 mg/dL (0.2-1.0); CALCIUM 10.3 mg/dL (8.5-10.3); CREATININE 1.3 mg/dL (0.4-1.0); TOTAL PROTEIN 6.7 g/dL (6.7-8.2)
== END 2019-03-28 23:59 | disposition home or self-care (01) ==
LOC: LAB.WCP 09:44
PROVIDERS: ATTEND Nurse Practitioner Family
DX: R10.9 Unspecified abdominal pain (principal)
CPT/HCPCS: 36415; 80053; 82150; 83690

== ENCOUNTER 2019-03-30 14:07 | Outpatient (CLI) | payer BC, MEDICARE, OTHER ==
--- NOTE | 2019-03-30 16:25 | CT Report ---
Reason: VISUAL CHANGES, TEMPORAL HEADACHE Procedure Date: 03/30/2019 Accession Number: [id number] / [id number] Procedure: CT - HEAD WO CPT Code: Final Report FULL RESULT: EXAM: CT HEAD EXAM DATE: 03/30/2019 02:19 PM. CLINICAL HISTORY: Visual changes, temporal headache. COMPARISON: None. TECHNIQUE: Multiaxial CT images were obtained from the foramen magnum to the vertex. Reformats: Sagittal and coronal. IV contrast: None. In accordance with CT protocol optimization, one or more of the following dose reduction techniques were utilized for this exam: automated exposure control, adjustment of mA and/or KV based on patient size, or use of iterative reconstructive technique. FINDINGS: Parenchyma: No intraparenchymal hemorrhage. No evidence of mass, midline shift, or CT findings of infarction. Mahoney-white differentiation is distinct. Extraaxial Spaces: Normal for age. No subdural or epidural collections identified. Ventricles: Normal in size and position. Sinuses and Orbits: Imaged paranasal sinuses, orbits, and mastoids show no significant abnormality. Bones: Nonspecific chronic appearing 7 x 16 mm sclerotic focus centered along the inner table of the right frontal skull on image 9 of series 4, no associated intracranial expansile soft tissue mass. Otherwise unremarkable appearance of the calvarium. Other: Small midline density just under the skin of the upper margin of the nose, probably incomplete visualization of a nasal implant. Bilateral calcifications of the cavernous ICA segments. IMPRESSION: 1. No CT evidence of acute intracranial abnormality, unremarkable appearance of the brain for age. 2. Nonspecific asymmetric focus of osseous sclerosis along the inner surface of the right frontal bone. This has the appearance of a chronic process and may be incidental. Hyperostosis related to a subtle plaque-like meningioma might also be considered. Metastatic disease is less likely. If no prior CT imaging can be found for purposes of comparison, to confirm stability, additional characterization could include follow-up CT or MRI. 3. Intracranial atherosclerosis. RADIA
== END 2019-03-30 14:08 | disposition home or self-care (01) ==
LOC: DI 14:07
PROVIDERS: ATTEND Nurse Practitioner Family
DX: I67.2 Cerebral atherosclerosis (principal); R93.0 Abnormal findings on diagnostic imaging of skull and head, not elsewhere classified
CPT/HCPCS: 70450

== ENCOUNTER 2019-05-03 15:46 | Outpatient (CLI) | payer BC, MEDICARE, OTHER ==
[2019-05-03] MEDS ORDERED: GADOBUTROL 7.5 MMOL/7.5 ML VIAL ONE (17:04)
[2019-05-03] MEDS ORDERED: GADOBUTROL 7.5 MMOL/7.5 ML VIAL IVP ONE (17:51)
--- NOTE | 2019-05-03 19:26 | MRI Report ---
Reason: ABNORMAL CT SCAN Procedure Date: 05/03/2019 Accession Number: [id number] / [id number] Procedure: MRI - Brain W/WO CPT Code: Final Report FULL RESULT: EXAM: MRI BRAIN WITHOUT AND WITH CONTRAST EXAM DATE: 05/03/2019 06:06 PM. CLINICAL HISTORY: Visual changes. Temporal headache. Follow-up abnormal CT showing asymmetric plaque-like bony sclerosis along the inner surface of the right frontal bone. COMPARISON: HEAD W/O 03/30/2019 2:19 PM. TECHNIQUE: Multiplanar, multisequence T1-weighted and fluid-sensitive MR sequences of the brain were performed before and after administration of intravenous contrast. Sequences optimized for routine evaluation. Other: None. IV Contrast: 5 mL Gadavist. FINDINGS: Again seen along the inner surface of the anterior right frontal bone is an ovoid hypointense focus measuring about 16 x 7 mm transverse and about 8 mm craniocaudal. This is hypointense on all MRI sequences consistent with a densely sclerotic or calcific process. No pathologic marrow signal change or fatty replacement in the adjacent underlying skull. Contrast-enhanced images show a thin plaque-like region of enhancement over this mildly expansile sclerotic process which creates the appearance of a relatively thin enhancing dural based extra-axial cap over the focus of calcification. Maximum thickness of the region of enhancement is 3-3.5 mm. No impingement of the adjacent brain. No abnormal enhancement of the adjacent bone. Unremarkable MRI appearance of the brain for age. Minimal volume loss. Mild chronic multifocal white matter T2 hyperintense signal changes consistent with chronic microangiopathy. No restricted diffusion to suggest acute or recent ischemic infarct. No cerebral hemorrhage or hydrocephalus. No other evidence of abnormal intracranial enhancement or space-occupying mass. Contrast opacification of the major dural venous sinuses is present as expected. No abnormal enhancement or nodule in the regions of the internal auditory canals. IMPRESSION: 1. Again seen are findings of an asymmetric process along the inner surface of the right frontal bone. The MRI appearance suggests a benign or nonaggressive process. Densely calcified plaque-like meningioma may be considered. Asymmetric incidental chronic dural calcification or hyperostosis of the frontal bone inner table may also be considered accompanied by atypical overlying vascular enhancement. The appearance is nonspecific. CT or MRI imaging may be considered in follow-up to confirm stability, given the nonaggressive features, one year follow-up suggested. 2. Intracranial MRI findings otherwise grossly age-appropriate. RADIA
== END 2019-05-03 15:47 | disposition home or self-care (01) ==
LOC: DI 15:46
PROVIDERS: ATTEND Nurse Practitioner Family
DX: R94.02 Abnormal brain scan (principal)
CPT/HCPCS: 70553; A9585

== ENCOUNTER 2019-06-12 08:00 | Outpatient (CLI) | payer BC, MEDICARE, OTHER ==
[2019-06-12 18:21] LABS: CALCIUM 10.4 mg/dL (8.5-10.3); CREATININE 1.1 mg/dL (0.4-1.0)
== END 2019-06-12 23:59 | disposition home or self-care (01) ==
LOC: LAB.WCP 08:00
PROVIDERS: ATTEND Family Medicine
DX: I10 Essential (primary) hypertension (principal)
CPT/HCPCS: 36415; 80048; 82088; 84244

== ENCOUNTER 2020-01-29 14:21 | Outpatient (CLI) | payer BC, MEDICARE, OTHER ==
--- NOTE | 2020-01-29 16:41 | XRAY Report ---
PROCEDURE: Knee 3 View BILAT INDICATIONS: ARTHRITIS,LT KNEE OSTEOARTHRITIS BILAT KNEES TECHNIQUE: 3 views of each knee(s) were acquired. COMPARISON: None. FINDINGS: Bones: No acute fractures or dislocations. No suspicious bony lesions. Moderate tricompartmental o steoarthritic changes of the bilateral knee. There is left greater than right medial joint space narr owing. Soft tissues: Small left joint effusion. No right-sided joint effusion seen. No suspicious soft tiss ue calcifications. IMPRESSION: Bilateral knees without acute osseous abnormalities. Moderate tricompartmental bilateral knee osteoarthrosis more pronounced on the left. Reviewed by: Kings Hidalgo MD on 01/29/2020 4:40 PM PST Approved by: Kings Hidalgo MD on 01/29/2020 4:40 PM PST Station ID: [id number]
== END 2020-01-29 14:22 | disposition home or self-care (01) ==
LOC: DI 14:21
PROVIDERS: ATTEND Physician Assistant Medical
DX: M17.0 Bilateral primary osteoarthritis of knee (principal)

== ENCOUNTER 2020-05-26 09:17 | Outpatient (CLI) | payer BC, MEDICARE, OTHER ==
[2020-05-26 12:07] LABS: BASOPHILS % (AUTO) 0.7 %; EOSINOPHILS # (AUTO) 0.1 10^3/uL (0.0-0.7); EOSINOPHILS % (AUTO) 1.3 %; HCT - HEMATOCRIT 36.4 % (37.0-47.0); HGB - HEMOGLOBIN 11.5 g/dL (12.0-16.0); LYMPHOCYTES # (AUTO) 1.4 10^3/uL (1.5-3.5); LYMPHOCYTES % (AUTO) 23.5 %; MEAN CORPUSCULAR HGB CONC 31.6 g/dL (32.0-36.0); MEAN CORPUSCULAR VOLUME 85.4 fL (81.0-99.0); MEAN PLATELET VOLUME 11.5 fL (7.9-10.8); MONOCYTES # (AUTO) 0.4 10^3/uL (0.0-1.0); MONOCYTES % (AUTO) 5.8 %; NEUTROPHILS # (AUTO) 4.1 10^3/uL (1.5-6.6); NEUTROPHILS % (AUTO) 68.5 %; PLT - PLATELET COUNT 182 10^3/uL (130-450); RED BLOOD COUNT 4.26 10^6/uL (4.20-5.40); RED CELL DISTRIBUTION WIDTH 14.6 % (12.0-15.0)
[2020-05-26 13:02] LABS: ALBUMIN 4.2 g/dL (3.2-5.5); ALBUMIN/GLOBULIN RATIO 1.4 (1.0-2.2); ALKALINE PHOSPHATASE 57 IU/L (42-121); ALT ALANINE AMINOTRANSFERASE 17 IU/L (10-60); AST ASPARTATE AMINOTRANSFERASE 24 IU/L (10-42); BILIRUBIN,TOTAL 0.8 mg/dL (0.2-1.0); BUN - BLOOD UREA NITROGEN 25 mg/dL (6-20); CALCIUM 10.3 mg/dL (8.5-10.3); CARBON DIOXIDE - CO2 28 mmol/L (21-32); CHLORIDE 102 mmol/L (101-111); CHOL/HDL RATIO 3.8 (<4.4); CHOLESTEROL 293 mg/dL; CREATININE 1.2 mg/dL (0.4-1.0); GFR - MDRD 43 (>89); GLUCOSE 85 mg/dL (70-100); HDL CHOLESTEROL 78 mg/dL; LDL CHOLESTEROL,CALCULATED 196 mg/dL; LDL/HDL RATIO 2.5 (<4.4); POTASSIUM 4.2 mmol/L (3.5-5.0); SODIUM 139 mmol/L (135-145); TOTAL PROTEIN 7.2 g/dL (6.7-8.2); TRIGLYCERIDES 93 mg/dL; VLDL CHOLESTEROL 19 mg/dL
== END 2020-05-26 23:59 | disposition home or self-care (01) ==
LOC: LAB.WCP 09:17
PROVIDERS: ATTEND Physician Assistant Medical
DX: E78.5 Hyperlipidemia, unspecified (principal); K21.9 Gastro-esophageal reflux disease without esophagitis
CPT/HCPCS: 36415; 80053; 80061; 83721; 85025

== ENCOUNTER 2020-05-26 14:53 | Outpatient (CLI) | payer BC, MEDICARE, OTHER ==
--- NOTE | 2020-05-27 12:22 | Mammography Report ---
BILATERAL DIGITAL SCREENING MAMMOGRAM 3D/2D: 05/26/2020 CLINICAL: Routine screening. Comparison is made to exams dated: 06/14/2018 mammogram and 11/26/2015 mammogram - [facility]. There are scattered fibroglandular elements in both breasts. There are benign post operative findings in the right breast. No significant masses, calcifications, or other findings are seen in either breast. There has been no significant interval change. IMPRESSION: BENIGN There is no mammographic evidence of malignancy. A 1 year screening mammogram is recommended. This exam was interpreted at Station ID: [id number]. NOTE: For mammograms, a report in lay terms will be sent to the patient. Approximately 15% of breast malignancies will not be visualized mammographically. In the management of a palpable breast mass, a negative mammogram must not discourage biopsy of a clinically suspicious lesion. Electronically Signed By: Rigo maya/hungrad:05/26/2020 16:26:33 ACR BI-RADS Category 2: Benign Finding(s) 3342F PARENCHYMAL PATTERN: (A) - The breast(s) demonstrate(s) scattered fibroglandular densities. BI-RADS CATEGORY: (2) - 2 RECOMMENDATION: (ANNUAL) - Recommend routine annual screening mammography. [id number] 1 year screening LATERALITY: (B)
== END 2020-05-26 14:54 | disposition home or self-care (01) ==
LOC: DI.N 14:53
DX: Z12.31 Encounter for screening mammogram for malignant neoplasm of breast (principal)

== ENCOUNTER 2020-07-31 14:56 | Outpatient (CLI) | payer BC, MEDICARE, OTHER ==
--- NOTE | 2020-07-31 16:18 | XRAY Report ---
PROCEDURE: Lumbar Spine 2 View INDICATIONS: BACK PAIN, LUMBAR TECHNIQUE: 2 views of the lumbar spine were acquired. COMPARISON: None. FINDINGS: Bones: 5 [id number] vertebrae are present. There is leftward curvature of the thoracolumbar sp ine. The T12 vertebral body demonstrates 50% anterior height loss consistent with compression fractur e of indeterminate age. There is facet arthrosis in the lumbar spine. No suspicious bony lesions. No disc space narrowing. Soft tissues: Overlying bowel gas pattern is normal. No suspicious soft tissue calcifications. IMPRESSION: 1. Levoscoliosis of the thoracolumbar spine. 2. 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 3. No disc space narrowing in the lumbar spine. 4. 50% anterior compression fracture of T12 of indeterminate age. Reviewed by: Peter Zamarripa on 07/31/2020 4:17 PM PDT Approved by: Peter Zamarripa on 07/31/2020 4:17 PM PDT Station ID: [id number]
== END 2020-07-31 23:59 | disposition home or self-care (01) ==
LOC: DI.N 14:56
PROVIDERS: ATTEND Family Medicine
DX: M47.816 Spondylosis without myelopathy or radiculopathy, lumbar region (principal); M48.54XA Collapsed vertebra, not elsewhere classified, thoracic region, initial encounter for fracture

== ENCOUNTER 2020-08-21 15:17 | Outpatient (CLI) | payer BC, MEDICARE, OTHER ==
--- NOTE | 2020-08-21 16:20 | DEXA Report ---
PROCEDURE: Dexa Spine and/or Hip INDICATIONS: POST MENOPAUSAL TECHNIQUE: Dual energy x-ray absorptiometry (DXA) was performed on a [employer] System. Regions measur ed are the AP Spine, femoral neck, and if needed forearm. COMPARISON: DEXA 01/26/2016 FINDINGS: Lumbar Spine: Bone Mineral Density 1.033 g/cm/cm,T score -1.2, osteopenia Left Hip: Bone Mineral Density 0.722 g/cm/cm,T score -2.3, osteopenia Left Femoral Neck: Bone Mineral Density 0.651 g/cm/cm, T score -2.8, osteoporosis (T score greater or equal to -1.0: NORMAL) (T score from -1.1 to -2.4: OSTEOPENIA) (T score less than or equal to -2.5 to: OSTEOPOROSIS) Impression: Decreased bone mineral density as described above suggestive of osteopenia in the lumbar spine and left hip and osteoporosis of the left femoral neck. Findings are stable to minimally progre ssed when compared to the prior exam from 01/26/2016. Patients with diagnosis of osteoporosis or osteopenia should have regular bone mineral density assess ment. For those eligible for Medicare, routine testing is allowed once every 2 years. Testing frequ ency can be increased for patients who have rapidly progressing disease or for those who are receivin g medical therapy to restore bone mass. Reviewed by: Rigo Wu MD on 08/21/2020 4:19 PM PDT Approved by: Rigo Wu MD on 08/21/2020 4:19 PM PDT Station ID: [id number]
== END 2020-08-21 15:18 | disposition home or self-care (01) ==
LOC: DI 15:17
PROVIDERS: ATTEND Physician Assistant Medical
DX: M81.0 Age-related osteoporosis without current pathological fracture (principal)

== ENCOUNTER 2021-05-13 14:47 | Outpatient (CLI) | payer BC, MEDICARE, OTHER ==
[2021-05-13 17:55] LABS: BASOPHILS % (AUTO) 0.6 %; EOSINOPHILS # (AUTO) 0.1 10^3/uL (0.0-0.7); EOSINOPHILS % (AUTO) 2.1 %; HCT - HEMATOCRIT 34.7 % (37.0-47.0); HGB - HEMOGLOBIN 11.3 g/dL (12.0-16.0); LYMPHOCYTES # (AUTO) 1.5 10^3/uL (1.5-3.5); LYMPHOCYTES % (AUTO) 27.4 %; MEAN CORPUSCULAR HEMOGLOBIN 27.8 pg (27.0-31.0); MEAN CORPUSCULAR HGB CONC 32.6 g/dL (32.0-36.0); MEAN CORPUSCULAR VOLUME 85.5 fL (81.0-99.0); MEAN PLATELET VOLUME 11.5 fL (7.9-10.8); MONOCYTES # (AUTO) 0.4 10^3/uL (0.0-1.0); MONOCYTES % (AUTO) 7.5 %; NEUTROPHILS # (AUTO) 3.3 10^3/uL (1.5-6.6); NEUTROPHILS % (AUTO) 62.2 %; PLT - PLATELET COUNT 208 10^3/uL (130-450); RED BLOOD COUNT 4.06 10^6/uL (4.20-5.40); RED CELL DISTRIBUTION WIDTH 14.3 % (12.0-15.0); WHITE BLOOD COUNT 5.3 x10^3/uL (4.8-10.8)
[2021-05-13 18:19] LABS: ALBUMIN 3.7 g/dL (3.2-5.5); ALBUMIN/GLOBULIN RATIO 1.2 (1.0-2.2); ALKALINE PHOSPHATASE 58 IU/L (42-121); ALT ALANINE AMINOTRANSFERASE 16 IU/L (10-60); AST ASPARTATE AMINOTRANSFERASE 23 IU/L (10-42); BILIRUBIN,TOTAL 0.4 mg/dL (0.2-1.0); BUN - BLOOD UREA NITROGEN 24 mg/dL (6-20); CALCIUM 9.4 mg/dL (8.5-10.3); CARBON DIOXIDE - CO2 28 mmol/L (21-32); CHLORIDE 104 mmol/L (101-111); CHOL/HDL RATIO 4.7 (<4.4); CHOLESTEROL 281 mg/dL; CREATININE 1.3 mg/dL (0.4-1.0); GFR - MDRD 39 (>89); GLUCOSE 89 mg/dL (70-100); HDL CHOLESTEROL 60 mg/dL; LDL CHOLESTEROL,CALCULATED 169 mg/dL; LDL/HDL RATIO 2.8 (<4.4); POTASSIUM 4.2 mmol/L (3.5-5.0); SODIUM 138 mmol/L (135-145); TOTAL PROTEIN 6.8 g/dL (6.7-8.2); TRIGLYCERIDES 259 mg/dL; VLDL CHOLESTEROL 52 mg/dL
[2021-05-13 18:30] LABS: THYROID STIMULATING HORMONE 2.88 uIU/mL (0.34-5.60)
== END 2021-05-13 14:48 | disposition home or self-care (01) ==
LOC: LAB.N 14:47
PROVIDERS: ATTEND Physician Assistant Medical
DX: I10 Essential (primary) hypertension (principal); D64.9 Anemia, unspecified; E78.5 Hyperlipidemia, unspecified; E55.9 Vitamin D deficiency, unspecified
CPT/HCPCS: 36415; 80053; 80061; 82306; 83721; 84443; 85025

== ENCOUNTER 2021-06-05 09:27 | Outpatient (CLI) | payer MEDICARE, OTHER ==
--- NOTE | 2021-06-05 10:17 | XRAY Report ---
PROCEDURE: Shoulder 2 View RT INDICATIONS: PAIN IN RIGHT SHOULDER TECHNIQUE: 2 views of the shoulder were acquired. COMPARISON: None. FINDINGS: BONES: No acute, displaced fracture. Mild to moderate joint space loss with osteophytosis of the acr omioclavicular and glenohumeral joints. Glenohumeral intra-articular bodies are seen, measuring up to 1 cm. SOFT TISSUES: No focal abnormality or appreciable pneumothorax. IMPRESSION: 1.No acute osseous abnormality. 2.Glenohumeral intra-articular bodies. Reviewed by: Dru Sen MD on 06/05/2021 10:16 AM PDT Approved by: Dru Sen MD on 06/05/2021 10:16 AM PDT Station ID: [id number]
== END 2021-06-05 23:59 | disposition home or self-care (01) ==
LOC: DI.N 09:27
PROVIDERS: ATTEND Nurse Practitioner
DX: M24.011 Loose body in right shoulder (principal); M19.011 Primary osteoarthritis, right shoulder

== ENCOUNTER 2021-06-16 14:07 | Outpatient (CLI) | payer MEDICARE, OTHER ==
[2021-06-16] MEDS ORDERED: IOVERSOL 320 50 ML VIAL ONE (14:20)
[2021-06-16] MEDS ORDERED: IOPAMIDOL-300 100 ML VIAL ONE (14:21)
[2021-06-16 14:47] LABS: CALCIUM 10.1 mg/dL (8.5-10.3); CREATININE 1.4 mg/dL (0.4-1.0); POTASSIUM 4.3 mmol/L (3.5-5.0)
[2021-06-16] MEDS ORDERED: IOPAMIDOL-300 100 ML VIAL IVP ONE (16:35)
[2021-06-16] MEDS ORDERED: IOVERSOL 320 50 ML VIAL PO ONE (16:36)
--- NOTE | 2021-06-17 08:31 | CT Report ---
PROCEDURE: Abdomen/Pelvis W INDICATIONS: CHRONIC EPIGASTRIC PAIN CONTRAST: IV CONTRAST: Isovue 300 ml: 100 PO CONTRAST: Optiray 320 ml50 TECHNIQUE: After the administration of oral and intravenous contrast, 5 mm thick sections acquired from the diap hragms to the symphysis. 5 mm thick coronal and sagittal reformats were acquired. For radiation dos e reduction, the following was used: automated exposure control, adjustment of mA and/or kV accordin g to patient size. COMPARISON: CT abdomen and pelvis report, 12/16/2010. X-ray lumbar spine 2 view, 07/31/2020. FINDINGS: Image quality: Excellent. ABDOMEN: Lung bases: Lung bases are clear. Heart size is normal. Tiny hiatal hernia. Solid organs: Liver is normal in size. Mild hepatic steatosis. Spleen is normal in size and enhancem ent. Gallbladder is normal Biliary system is non dilated. Pancreas enhances normally. No adrenal nodules. Kidneys demonstrate normal size and enhancement, without hydronephrosis. Peritoneum and bowel: There is concentric thickening in the gastric antrum/duodenal bulb. Bowel loop s demonstrate normal wall thickness and caliber. Diverticulosis without diverticulitis. No free flui d or air. Nodes and vessels: No retroperitoneal or mesenteric adenopathy by size criteria. Aorta and inferior vena cava are normal in size. Miscellaneous: No ventral hernias. PELVIS: Genitourinary: Bladder wall thickness is normal. Miscellaneous: No inguinal hernias or adenopathy. Bones: No suspicious bony lesions. There is chronic moderate compression fracture of T12. Mild dege nerative disc disease and moderate facet arthropathy in lumbar spine. IMPRESSION: 1. Concentric thickening of the gastric antrum/duodenal bulb. The finding may be associated with pept ic ulcer disease or gastritis/duodenitis. Recommend clinical correlation. If clinically indicated, up per endoscopy may be helpful. 2. Diverticulosis without diverticulitis. 3. Chronic moderate compression fracture of T12. Reviewed by: Urszula Fernando MD on 06/17/2021 8:29 AM PDT Approved by: Urszula Fernando MD on 06/17/2021 8:29 AM PDT Station ID: [id number]
== END 2021-06-16 14:08 | disposition home or self-care (01) ==
LOC: LAB 14:07
PROVIDERS: ATTEND Physician Assistant Medical
DX: R10.13 Epigastric pain (principal); R93.3 Abnormal findings on diagnostic imaging of other parts of digestive tract; K57.90 Diverticulosis of intestine, part unspecified, without perforation or abscess without bleeding; M48.54XD Collapsed vertebra, not elsewhere classified, thoracic region, subsequent encounter for fracture with routine healing
CPT/HCPCS: 36415; 74177; 80048; Q9967

== ENCOUNTER 2021-07-30 17:03 | Emergency (ER) | payer MEDICARE, OTHER ==
--- NOTE | 2021-07-30 17:55 | CT Report ---
PROCEDURE: Head W/O Stroke Protocol INDICATIONS: L FACIAL DROOP X6 HOURS TECHNIQUE: Noncontrast 4.5 mm thick angled axial sections acquired from the foramen magnum to the vertex, with c oronal reformats. For radiation dose reduction, the following was used: automated exposure control, adjustment of mA and/or kV according to patient size. COMPARISON: CT head 03/30/2019 FINDINGS: Image quality: Excellent. CSF spaces: Basal cisterns are patent. No extra-axial fluid collections. Ventricles are normal in size and shape. Brain: No midline shift. No intracranial masses or hemorrhage. Mild chronic microvascular ischemic changes. Mild diffuse age-related cerebral and cerebellar parenchymal volume loss. Calcifications are seen in the bilateral globus pallidus. Skull and face: Calvarium and visualized facial bones are intact, without suspicious lesions. Sinuses: Visualized sinuses and mastoids are clear. IMPRESSION: No acute intracranial abnormality. Findings were discussed with the referring physician, Dr. Blake, by telephone on 07/30/2021 at 5:53 P M. This study fulfills neurological imaging criteria for inclusion or exclusion of acute stroke therapie s based on available published neurological imaging guidelines. Reviewed by: Rigo Wu MD on 07/30/2021 5:53 PM PDT Approved by: Rigo Wu MD on 07/30/2021 5:53 PM PDT Station ID: [id number]
[2021-07-30 18:01] LABS: BASOPHILS % (AUTO) 0.3 %; EOSINOPHILS # (AUTO) 0.1 10^3/uL (0.0-0.7); HCT - HEMATOCRIT 34.7 % (37.0-47.0); LYMPHOCYTES # (AUTO) 1.5 10^3/uL (1.5-3.5); LYMPHOCYTES % (AUTO) 24.4 %; MEAN CORPUSCULAR HEMOGLOBIN 28.3 pg (27.0-31.0); MEAN CORPUSCULAR HGB CONC 31.7 g/dL (32.0-36.0); MEAN CORPUSCULAR VOLUME 89.2 fL (81.0-99.0); MEAN PLATELET VOLUME 10.6 fL (7.9-10.8); MONOCYTES # (AUTO) 0.5 10^3/uL (0.0-1.0); MONOCYTES % (AUTO) 7.8 %; NEUTROPHILS # (AUTO) 4.1 10^3/uL (1.5-6.6); NEUTROPHILS % (AUTO) 66.2 %; PLT - PLATELET COUNT 224 10^3/uL (130-450); RED BLOOD COUNT 3.89 10^6/uL (4.20-5.40); RED CELL DISTRIBUTION WIDTH 13.8 % (12.0-15.0); WHITE BLOOD COUNT 6.1 x10^3/uL (4.8-10.8)
[2021-07-30 18:02] LABS: PT - PROTHROMBIN TIME 10.7 secs (9.9-12.6)
--- NOTE | 2021-07-30 18:04 | XRAY Report ---
PROCEDURE: Chest 1 View X-Ray INDICATIONS: STROKE LIKE SYMPTOMS TECHNIQUE: One view of the chest was acquired. COMPARISON: None. FINDINGS: Surgical changes and devices: None. Lungs and pleura: No pleural effusions or pneumothorax. Lungs are clear. Mediastinum: Mediastinal contours appear normal. Heart size is normal. Bones and chest wall: No suspicious bony lesions. Overlying soft tissues appear unremarkable. IMPRESSION: No acute cardiopulmonary abnormality. Reviewed by: Rigo Wu MD on 07/30/2021 6:03 PM PDT Approved by: Rigo Wu MD on 07/30/2021 6:03 PM PDT Station ID: [id number]
[2021-07-30 18:07] LABS: ALBUMIN 3.9 g/dL (3.2-5.5); ALBUMIN/GLOBULIN RATIO 1.3 (1.0-2.2); BILIRUBIN,TOTAL 0.2 mg/dL (0.2-1.0); CALCIUM 9.7 mg/dL (8.5-10.3); CREATININE 1.4 mg/dL (0.4-1.0); POTASSIUM 4.7 mmol/L (3.5-5.0); TOTAL PROTEIN 6.8 g/dL (6.7-8.2)
[2021-07-30 18:11] LABS: PARTIAL THROMBOPLASTIN TIME 27.6 secs (24.9-33.3)
--- NOTE | 2021-07-30 18:54 | ED Physician Documentation ---
History of Present Illness - Stated complaint Stated Complaint: STROKE SYMPTOMS - Chief complaint Chief Complaint: Neuro - History obtained from History obtained from: Patient, Family - History of Present Illness Timing: How many hours ago (7) - Additonal information Additional information: 81-year-old female with history of hypertension presents by private vehicle for approximately 6 hours of left-sided facial droop and slow speech. History is obtained with . states that early this morning the patient was outside working in the garden when she told him that she felt funny. She took a nap, and when she woke up she said she felt better, but the noticed that her face on the left side appeared to be drooping. He took her in to our ER for evaluation. states the last time he saw the patient normal was at 9 AM today. Review of Systems Ten Systems: 10 systems reviewed and negative Constitutional: denies: Fever, Chills, Myalgias, Fatigue, Weight Loss, Sweats, Reviewed and negative, Other Eyes: denies: Loss of vision, Decreased vision, Photophobia, Discharge, Irritation, Reviewed and negative, Other Ears: denies: Loss of hearing, Ear pain, Drainage/discharge, Tinnitus/ringing, Foreign body, Reviewed and negative, Other Nose: denies: Rhinorrhea / runny nose, Congestion, Epistaxis, Sinus pressure / pain, Foreign Body, Reviewed and negative, Other Throat: denies: Dental pain / toothache, Oral lesions / sores, Sore throat, Swollen tonsils, Swallowed foreign body, Reviewed and negative, Other Cardiac: denies: Chest pain / pressure, Palpitations, Pedal edema, Calf pain, Reviewed and negative, Other Respiratory: denies: Dyspnea, Cough, Hemoptysis, Wheezing, Reviewed and negative, Other GI: denies: Abdominal Pain, Abdominal Swelling, Nausea, Vomiting, Constipation, Diarrhea, Hematemesis, Bloody / black stool, Reviewed and negative, Other : denies: Dysuria, Frequency, Hesitancy, Unable to Void, Incontinent, Hematuria, Discharge, LMP, Vaginal bleeding, Irregular menses, Missed period, Now EGA, Control, Hysterectomy, Testicular pain, Testicular mass, Russell Problem, Reviewed and negative, Other Skin: denies: Rash, Lesions, Abrasion (s), Laceration (s), Bite / sting, Reviewed and negative, Other Musculoskeletal: denies: Neck pain, Back pain, Extremity pain, Joint pain, Extremity swelling, Joint swelling, Pain with weight bearing, Reviewed and negative, Other Neurologic: reports: Difficulty speaking (slow speech), Other (facial droop (per )) Psychiatric: denies: Depressed, Suicidal, Homicidal, Hallucinations, Delusions, Anxiety, Insomnia, Reviewed and negative, Other Endocrine: denies: Polydypsia, Polyuria, Polyphagia, Weight loss, Weight gain, Easy bruising / bleeding, Swollen lymph nodes, Reviewed and negative, Other PD PAST MEDICAL HISTORY - Past Medical History Past Medical History: Yes Cardiovascular: Hypertension Respiratory: None Endocrine/Autoimmune: None GI: None : None Psych: None Musculoskeletal: None Derm: None - Past Surgical History 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 - Present Medications Home Medications: Ambulatory Orders Medication Instructions Recorded Confirmed Naproxen Sodium [Aleve] 220 mg PO DAILY 06/29/13 06/29/13 Aspirin [Aspir-Low] 81 mg PO ONCE 12/25/15 12/25/15 Atorvastatin Calcium PO ONCE 12/25/15 Calcium Carbonate/Vitamin D3 PO ONCE 12/25/15 [Caltrate 600 Plus D3 Tablet] Losartan Potassium [Cozaar] 100 mg PO 12/25/15 Ondansetron Odt [Zofran] 4 mg TL Q6H PRN #14 tablet 10/06/17 Hydrocodone/Acetaminophen 1 - 2 each PO Q6H PRN #14 tablet 01/19/19 [Hydrocodon-Acetaminophen 5-325] Meloxicam [Mobic] 7.5 mg PO BID PRN #20 tablet 01/19/19 - Allergies Allergies/Adverse Reactions: Allergies Allergy/AdvReac Type Severity Reaction Status Date / Time No Known Drug Allergies Allergy Verified 01/22/19 10:13 - Social History Does the pt smoke?: No Smoking Status: Never smoker Does the pt drink ETOH?: No Does the pt have substance abuse?: No - Immunizations Immunizations are current?: Yes - POLST Patient has POLST: No PD ED PE NORMAL - General General: Alert and oriented X 3, No acute distress, Well developed/nourished, Other - HEENT HEENT: Atraumatic, PERRL, EOMI, Ears normal, Moist mucous membranes, Pharynx benign, Dentition benign, Other - Neck Neck: Supple, no meningeal sign, No bony TTP, No adenopathy, Thyroid normal, No JVD, No bruit, C-Spine cleared by NEXUS criteria, Other - Cardiac Cardiac: RRR, No murmur, No gallop, No rub, Strong equal pulses, Other - Respiratory Respiratory: No respiratory distress, Clear bilaterally, Other - Abdomen Abdomen: Normal bowel sounds, Soft, Non tender, Non distended, No organomegaly, Other - Female Female : Deferred - Back Back: No CVA TTP, No spinal TTP, Other - Derm Derm: Normal color, Warm and dry, No rash, Other - Extremities Extremities: No deformity, No tenderness to palpate, Normal ROM s pain, No edema, No calf tenderness / cord, Other - Neuro Neuro: Alert and oriented X 3, meat trimmer 2-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, No motor deficit, No sensory deficit, Normal speech, Other - Psych Psych: Normal mood, Normal affect, Other Results - Vitals Vitals: Vital Signs - 24 hr 07/30/21 07/30/21 07/30/21 17:08 17:22 18:17 Temperature 36.4 C L Heart Rate 99 72 59 L Respiratory 14 16 19 Rate Blood Pressure 158/127 H 163/74 H 145/67 H O2 Saturation 99 100 100 Oxygen O2 Source Room air - Labs Labs: Laboratory Tests 07/30/21 07/30/21 07/30/21 17:48 17:48 17:48 WBC 6.1 RBC 3.89 L Hgb 11.0 L Hct 34.7 L MCV 89.2 MCH 28.3 MCHC 31.7 L RDW 13.8 Plt Count 224 MPV 10.6 Neut # (Auto) 4.1 Lymph # (Auto) 1.5 Coleman # (Auto) 0.5 Eos # (Auto) 0.1 Baso # (Auto) 0.0 Absolute Nucleated RBC 0.00 Nucleated RBC % 0.0 PT INR APTT Sodium 139 Potassium 4.7 Chloride 104 Carbon Dioxide 27 Anion Gap 8.0 BUN 30 H Creatinine 1.4 H Estimated GFR (MDRD) 36 L Glucose 135 H Calcium 9.7 Total Bilirubin 0.2 AST 19 ALT 19 Alkaline Phosphatase 66 Ammonia 13.7 Troponin I High Sens B-Natriuretic Peptide Total Protein 6.8 Albumin 3.9 Globulin 2.9 Albumin/Globulin Ratio 1.3 07/30/21 07/30/21 07/30/21 17:48 17:48 17:48 WBC RBC Hgb Hct MCV MCH MCHC RDW Plt Count MPV Neut # (Auto) Lymph # (Auto) Coleman # (Auto) Eos # (Auto) Baso # (Auto) Absolute Nucleated RBC Nucleated RBC % PT 10.7 INR 1.0 APTT 27.6 Sodium Potassium Chloride Carbon Dioxide Anion Gap BUN Creatinine Estimated GFR (MDRD) Glucose Calcium Total Bilirubin AST ALT Alkaline Phosphatase Ammonia Troponin I High Sens 11.5 B-Natriuretic Peptide 43 Total Protein Albumin Globulin Albumin/Globulin Ratio PD MEDICAL DECISION MAKING - ED course ED course: bringing patient in for slow speech and possible facial droop. NIH is 0, there is absolutely no facial droop on my exam, no pronator drift on either side, no leg drift on either side, no ataxia, sensation is equal and intact bilaterally. Additionally patient is outside of range of tPA. Does not have any findings consistent with large vessel occlusion. Labs and imaging are obtained, everything is negative for acute findings. Unfortunately we do not have MRI capabilities at this time. Pending Carotid US. Signed out to Dr. Tolliver at 1916
[2021-07-30 20:20] LABS: BILIRUBIN,URINE NEGATIVE (NEGATIVE); GLUCOSE, URINE (UA) NEGATIVE (NEGATIVE); KETONES,URINE (UA) NEGATIVE (NEGATIVE); LEUKOCYTE ESTERASE, URINE TRACE (NEGATIVE); NITRITE,URINE NEGATIVE (NEGATIVE); OCCULT BLOOD,URINE NEGATIVE (NEGATIVE); PROTEIN,URINE NEGATIVE (NEGATIVE); UROBILINOGEN,URINE 0.2 (NORMAL) E.U./dL (NORMAL)
[2021-07-30 20:21] LABS: CLARITY,URINE CLEAR (CLEAR)
[2021-07-30 20:27] LABS: BACTERIA,URINE Rare /HPF (None Seen); RBC,URINE None Seen /HPF (0-5); SQUAMOUS EPITHELIAL CELL,UR RARE Squamous (<= Few)
[2021-07-30] MEDS ORDERED: ASPIRIN CHEW 81 MG TABLET PO STA (21:31)
[2021-07-30] MEDS ORDERED: CLOPIDOGREL 75 MG TABLET PO STA (21:31)
[2021-07-30 21:36] VITALS: BP 165/73
--- NOTE | 2021-07-30 21:38 | ED Physician Documentation ---
ED Addendum - Addendum Addendum: 07/30/21 21:35The patient has carotid Doppler performed which showing less than 50% stenoses so nothing critical. Reexamination of the patient showed normal neurologic exam without any weakness. Her feels she is back to normal and is not noticing weakness at this time. The symptoms did start after she was out gardening for a few hours and was feeling tired and warm. Her noted some mild facial weakness and general weakness overall. She went to sleep for a few hours and awoke with still a possible mild facial droop and came here. It has resolved after arrival here. She and her did not notice unilateral arm or leg weakness. I discussed with the patient and her the options of home with dual antiplatelet agent presuming a TIA for now. The patient does not have critical large vessel blockages or stenoses and is not in A. fib and had a normal CT scan. I did discuss with them ideally an MRI would be used for excluding small vessel injury/lacunar infarct versus other etiology such as MS. Given our unavailability of MRI for the next 3 days and also no outlying facilities able to take her in transfer tonight, the options would be home with aspirin and Plavix and follow-up with her primary care and return if recurrent symptoms versus staying in the ER until transfer could be accomplished for MRI. The patient and her opted for home and following up with her primary. Disposition: The patient is discharged home in stable condition. Diagnoses: 1. Unilateral facial weakness, resolved 2. Fatigue 3. Possible TIA
--- NOTE | 2021-07-30 23:52 | Ultrasound Report ---
PROCEDURE: Carotid Doppler Complete INDICATIONS: TIA TECHNIQUE: Color and pulse Doppler interrogation was performed of both carotid systems, with image documentation and velocity measurements. COMPARISON: None. FINDINGS: Right side: Brachial blood pressure: 166/71 mm Hg. Common carotid artery peak systolic velocity: 75 cm/sec. Internal carotid artery peak systolic velocity: 55 cm/sec. Internal carotid artery end diastolic velocity: 16 cm/sec. External carotid artery peak systolic velocity: 17 cm/sec. ICA/CCA peak systolic ratio: 0.8 . Mahoney scale imaging description: There is mild scattered calcified plaque including within the caroti d bulb. Percent internal carotid artery stenosis: Less than 50% . Vertebral artery: Flow direction is antegrade. Left side: Brachial blood pressure: 176/65 mm Hg. Common carotid artery peak systolic velocity: 78 cm/sec. Internal carotid artery peak systolic velocity: 54 cm/sec. Internal carotid artery end diastolic velocity: 14 cm/sec. External carotid artery peak systolic velocity: 75 cm/sec. ICA/CCA peak systolic ratio: 0.8 . Mahoney scale imaging description: There is minimal plaque in the carotid bulb. Percent internal carotid artery stenosis: Less than 50% . Vertebral artery: Flow direction is antegrade. IMPRESSION: 1. Mild scattered calcified plaque within the right carotid arteries including mild narrowing of less than 50% in the right carotid bulb. 2. Minimal narrowing of less than 50% in the left carotid bulb. The estimate of stenosis included in the report of the imaging study was calculated using the NASCET method Reviewed by: Zac Hatch MD on 07/30/2021 11:55 PM PDT Approved by: Zac Hatch MD on 07/30/2021 11:55 PM PDT Station ID: [id number]
== END 2021-07-30 21:58 | disposition home or self-care (01) ==
LOC: ED 17:03
DX: R29.810 Facial weakness (principal); I10 Essential (primary) hypertension; R53.83 Other fatigue; Z79.82 Long term (current) use of aspirin
CPT/HCPCS: 36415; 70450; 71045; 80053; 81001; 82140; 83880; 84484; 85025; 85610; 85730; 87077; 87086; 87181; 93005; 93880; 99283; 99284; A9270

== ENCOUNTER 2021-10-14 09:13 | Outpatient (CLI) | payer MEDICARE, OTHER ==
--- NOTE | 2021-10-14 16:35 | XRAY Report ---
PROCEDURE: Ribs w/PA Chest RT INDICATIONS: R SIDED RIB PX TECHNIQUE: 3 views of the right ribs were acquired, along with a single view chest. COMPARISON: Chest x-ray 08/29/2021, shoulder x-ray 06/05/2021 FINDINGS: Surgical changes and devices: None. Bones and chest wall: No fractures or dislocations. No suspicious bony lesions. Overlying soft tis sues appear unremarkable. Rounded ossifications are noted overlying the right humeral head, also pre sent on prior exam. Lungs and pleura: No pleural effusions or pneumothorax. Lungs appear clear. Mediastinum: Mediastinal contours appear normal. Heart size is normal. IMPRESSION: No visualized acute fracture or dislocation. However, occult injury cannot be excluded. Recommend olivia rt interval imaging follow-up in 7-10 days as clinically indicated for additional evaluation.. Ossifications overlying the humeral head possibly related to multiple intra-articular loose bodies. Reviewed by: Yani Garcia MD on 10/14/2021 4:33 PM PDT Approved by: Yani Garcia MD on 10/14/2021 4:33 PM PDT Station ID: [id number]
== END 2021-10-14 09:14 | disposition home or self-care (01) ==
LOC: DI.N 09:13
PROVIDERS: ATTEND Physician Assistant Medical
DX: R07.81 Pleurodynia (principal); K21.9 Gastro-esophageal reflux disease without esophagitis

== ENCOUNTER 2021-10-14 09:19 | Outpatient (CLI) | payer MEDICARE, OTHER ==
[2021-10-14 12:18] LABS: BILIRUBIN,DIRECT 0.1 mg/dL (0.1-0.5); BILIRUBIN,TOTAL 0.6 mg/dL (0.2-1.0); TOTAL PROTEIN 6.8 g/dL (6.7-8.2)
[2021-10-15 04:24] LABS: HCV AB <0.1 s/co ratio (0.0-0.9)
[2021-10-15 05:11] LABS: HBsAG SCREEN Positive (Negative); HEPATITIS B SURFACE AB QUANT <3.1 mIU/mL (Immunity>9.9)
== END 2021-10-14 09:20 | disposition home or self-care (01) ==
LOC: LAB.N 09:19
PROVIDERS: ATTEND Physician Assistant Medical
DX: K21.9 Gastro-esophageal reflux disease without esophagitis (principal)
CPT/HCPCS: 36415; 80076; 86317; 86704; 86709; 86803; 87340

== ENCOUNTER 2021-10-22 10:14 | Outpatient (CLI) | payer MEDICARE, OTHER ==
--- NOTE | 2021-10-22 17:48 | Ultrasound Report ---
PROCEDURE: Abdomen Limited INDICATIONS: GERD TECHNIQUE: Real-time scanning was performed of the abdominal and retroperitoneal organs, with image documentatio n. COMPARISON: None. FINDINGS: Liver: Liver is normal in size and increased in echogenicity. Gallbladder: No stones. Wall thickness is normal measuring 1.9 mm. Biliary ducts: Intrahepatic bile ducts are non-dilated. Extrahepatic bile duct caliber measures 3.7 mm. Normal is 6-7 mm or less in diameter, or 10 mm or less post-cholecystectomy. Pancreas: Visualized portions of the pancreas are sonographically normal. Kidneys: Right kidney measures 8.8 cm long. No hydronephrosis or nephrolithiasis. No solid masses. IMPRESSION: Mild hepatic steatosis. Reviewed by: Yani Garcia MD on 10/22/2021 5:47 PM PDT Approved by: Yani Garcia MD on 10/22/2021 5:47 PM PDT Station ID: [id number]
== END 2021-10-22 10:15 | disposition home or self-care (01) ==
LOC: DI 10:14
PROVIDERS: ATTEND Physician Assistant Medical
DX: K21.9 Gastro-esophageal reflux disease without esophagitis (principal); K76.0 Fatty (change of) liver, not elsewhere classified

== ENCOUNTER 2021-10-22 15:02 | Outpatient (CLI) | payer MEDICARE, OTHER ==
--- NOTE | 2021-10-22 23:31 | XRAY Report ---
PROCEDURE: Shoulder 2 View LT INDICATIONS: LEFT SHOULDER PAIN TECHNIQUE: 2 views of the shoulder were acquired. COMPARISON: None available. FINDINGS: Bones: No fractures or dislocations. No suspicious bony lesions. Visualized ribs appear intact. M oderate acromioclavicular and severe glenohumeral joint space narrowing with articular osteophyte for mation. Soft tissues: No suspicious soft tissue calcifications. IMPRESSION: Moderate acromioclavicular and severe glenohumeral joint degeneration. Reviewed by: MAGDALENO Hill on 10/22/2021 11:37 PM PDT Approved by: Yani Garcia MD on 10/22/2021 11:37 PM PDT Station ID: [id number]
== END 2021-10-22 15:03 | disposition home or self-care (01) ==
LOC: DI.N 15:02
PROVIDERS: ATTEND Physician Assistant Medical
DX: M19.012 Primary osteoarthritis, left shoulder (principal); K21.9 Gastro-esophageal reflux disease without esophagitis; K76.0 Fatty (change of) liver, not elsewhere classified

== ENCOUNTER 2022-01-19 14:16 | Outpatient (CLI) | payer MEDICARE, OTHER ==
--- NOTE | 2022-01-19 18:10 | XRAY Report ---
PROCEDURE: Cervical Spine 2 View INDICATIONS: CERVICAL SPASM TECHNIQUE: 3 view(s) of the cervical spine were acquired. COMPARISON: None. FINDINGS: Normal cervical spine vertebral body height and alignment. No suspicious lytic or blastic osseous lesion. Disc height loss at C5-C6 and C6-C7 with degenerative endplate change, facet hypertro phy, uncovertebral hypertrophy. Suspected neural foraminal narrowing at C6-C7 due to these changes. IMPRESSION: Lower lumbar spine degenerative changes. No acute finding. Reviewed by: Mikey Gallagher MD on 01/19/2022 5:[address] [facility] Approved by: Mikey Gallagher MD on 01/19/2022 5:[address] Station ID: [id number]
== END 2022-01-19 14:17 | disposition home or self-care (01) ==
LOC: DI.N 14:16
PROVIDERS: ATTEND Family Medicine
DX: M47.816 Spondylosis without myelopathy or radiculopathy, lumbar region (principal); M51.36 Other intervertebral disc degeneration, lumbar region

== ENCOUNTER 2022-02-24 09:30 | Outpatient (CLI) | payer MEDICARE, OTHER ==
[2022-02-24 09:46] LABS: BASOPHILS % (AUTO) 0.8 %; EOSINOPHILS # (AUTO) 0.1 10^3/uL (0.0-0.7); EOSINOPHILS % (AUTO) 2.7 %; HCT - HEMATOCRIT 32.8 % (37.0-47.0); HGB - HEMOGLOBIN 10.3 g/dL (12.0-16.0); LYMPHOCYTES # (AUTO) 1.8 10^3/uL (1.5-3.5); LYMPHOCYTES % (AUTO) 33.5 %; MEAN CORPUSCULAR HEMOGLOBIN 28.3 pg (27.0-31.0); MEAN CORPUSCULAR HGB CONC 31.4 g/dL (32.0-36.0); MEAN CORPUSCULAR VOLUME 90.1 fL (81.0-99.0); MEAN PLATELET VOLUME 10.5 fL (7.9-10.8); MONOCYTES # (AUTO) 0.4 10^3/uL (0.0-1.0); MONOCYTES % (AUTO) 6.9 %; NEUTROPHILS # (AUTO) 2.9 10^3/uL (1.5-6.6); NEUTROPHILS % (AUTO) 55.9 %; PLT - PLATELET COUNT 180 10^3/uL (130-450); RED BLOOD COUNT 3.64 10^6/uL (4.20-5.40); RED CELL DISTRIBUTION WIDTH 12.9 % (12.0-15.0); WHITE BLOOD COUNT 5.3 x10^3/uL (4.8-10.8)
[2022-02-24 10:17] LABS: THYROID STIMULATING HORMONE 3.48 uIU/mL (0.34-5.60)
[2022-02-24 10:23] LABS: ALBUMIN 3.9 g/dL (3.2-5.5); ALBUMIN/GLOBULIN RATIO 1.3 (1.0-2.2); ALKALINE PHOSPHATASE 51 IU/L (42-121); ALT ALANINE AMINOTRANSFERASE 15 IU/L (10-60); AST ASPARTATE AMINOTRANSFERASE 22 IU/L (10-42); BILIRUBIN,TOTAL 0.4 mg/dL (0.2-1.0); BUN - BLOOD UREA NITROGEN 26 mg/dL (6-20); CALCIUM 9.1 mg/dL (8.5-10.3); CARBON DIOXIDE - CO2 27 mmol/L (21-32); CHLORIDE 103 mmol/L (101-111); CHOL/HDL RATIO 2.6 (<4.4); CHOLESTEROL 154 mg/dL; CREATININE 1.4 mg/dL (0.4-1.0); GFR - MDRD 36 (>89); GLUCOSE 92 mg/dL (70-100); HDL CHOLESTEROL 60 mg/dL; LDL CHOLESTEROL,CALCULATED 69 mg/dL; LDL/HDL RATIO 1.2 (<4.4); POTASSIUM 3.9 mmol/L (3.5-5.0); SODIUM 136 mmol/L (135-145); TRIGLYCERIDES 125 mg/dL; VLDL CHOLESTEROL 25 mg/dL
== END 2022-02-24 09:31 | disposition home or self-care (01) ==
LOC: LAB 09:30
PROVIDERS: ATTEND Nurse Practitioner Family
DX: I12.9 Hypertensive chronic kidney disease with stage 1 through stage 4 chronic kidney disease, or unspecified chronic kidney disease (principal); N18.9 Chronic kidney disease, unspecified; D63.1 Anemia in chronic kidney disease; I63.9 Cerebral infarction, unspecified
CPT/HCPCS: 36415; 80053; 80061; 83721; 84443; 85025

== ENCOUNTER 2022-04-13 09:05 | Outpatient (CLI) | payer MEDICARE, OTHER ==
[2022-04-13 12:55] LABS: ALBUMIN 4.1 g/dL (3.2-5.5); ALBUMIN/GLOBULIN RATIO 1.2 (1.0-2.2); BILIRUBIN,TOTAL 0.5 mg/dL (0.2-1.0); CALCIUM 9.2 mg/dL (8.5-10.3); CREATININE 1.2 mg/dL (0.4-1.0); PHOSPHORUS 2.9 mg/dL (2.5-4.6); POTASSIUM 4.2 mmol/L (3.5-5.0); TOTAL PROTEIN 7.5 g/dL (6.7-8.2); URIC ACID 4.3 mg/dL (2.6-7.2)
[2022-04-13 13:03] LABS: CREATININE,URINE 142.3 mg/dL; PROTEIN/CREATININE RATIO,URINE 0.2 (<=0.2)
[2022-04-13 13:06] LABS: FECAL OCCULT BLOOD (FIT) NEGATIVE (NEGATIVE)
[2022-04-13 13:09] LABS: FERRITIN 127.5 ng/mL (11.0-306.8)
[2022-04-13 13:12] LABS: FOLATE 8.54 ng/mL (5.90 - >24.8)
== END 2022-04-13 09:06 | disposition home or self-care (01) ==
LOC: LAB.N 09:05
PROVIDERS: ATTEND Internal Medicine Nephrology
DX: N25.81 Secondary hyperparathyroidism of renal origin (principal); E83.30 Disorder of phosphorus metabolism, unspecified; M10.00 Idiopathic gout, unspecified site; R80.9 Proteinuria, unspecified; N05.9 Unspecified nephritic syndrome with unspecified morphologic changes; D50.0 Iron deficiency anemia secondary to blood loss (chronic); D51.9 Vitamin B12 deficiency anemia, unspecified
CPT/HCPCS: 36415; 80053; 82274; 82570; 82607; 82728; 82746; 83540; 83970; 84100; 84156; 84466; 84550

== ENCOUNTER 2022-04-21 20:29 | Outpatient (CLI) | payer MEDICARE, OTHER ==
--- NOTE | 2022-04-22 11:32 | Ultrasound Report ---
PROCEDURE: Retroperitoneal INDICATIONS: KIDNEY DISFUNCTION, OBSTRUCTIVE NEPHROPATHY TECHNIQUE: Real-time scanning was performed of the retroperitoneal organs, with image documentation. COMPARISON: None. FINDINGS: Kidneys: Kidneys are normal in size. Right kidney measures 9 cm long; left kidney measures 8.7 cm l moni. Right renal cortical thickness is 1.8 cm; left renal cortical thickness is 1.0 cm. No solid ma sses, hydronephrosis, or nephrolithiasis. Mildly increased renal cortical echogenicity. vena cava is patent. Bladder: Pre-void bladder volume is 77 mL. Post-void residual is 3 mL. Pre-void images demonstrate no intraluminal masses or stones. On pre-void images, both ureteral jets are noted with color Doppl er interrogation. (Of note, ureteral jets may not be detectable in up to 25% of cases due to insuffi cient differences in specific gravity between ureteral and bladder urine). Miscellaneous: No free abdominal fluid. IMPRESSION: Mildly increased parenchymal echogenicity, suggestive of acute or chronic renal disease. Reviewed by: Dima Benson on 04/22/2022 11:30 AM [facility] Approved by: Dima Benson on 04/22/2022 11:30 AM PST Station ID: [id number]
== END 2022-04-21 20:30 | disposition home or self-care (01) ==
LOC: DI 20:29
PROVIDERS: ATTEND Internal Medicine Nephrology
DX: N28.9 Disorder of kidney and ureter, unspecified (principal); N13.8 Other obstructive and reflux uropathy

== ENCOUNTER 2022-06-01 08:00 | Outpatient (CLI) | payer MEDICARE, OTHER | END 2022-06-01 23:59 | disposition home or self-care (01) | LOC: LAB.WCP 08:00 | PROVIDERS: ATTEND Physician Assistant Medical | DX: N39.41 Urge incontinence (principal) | CPT/HCPCS: 87086 ==

== ENCOUNTER 2022-07-07 11:21 | Emergency (ER) | payer MEDICARE, OTHER ==
[2022-07-07 11:32] VITALS: BP 149/61
[2022-07-07] MEDS ORDERED: lidocaine 1% 20 ML MDV SUBQ ONE (11:51)
--- NOTE | 2022-07-07 11:52 | ED Physician Documentation ---
History of Present Illness - Stated complaint Stated Complaint: LT LEG SWELL - Chief complaint Chief Complaint: Ext Problem - History obtained from History obtained from: Patient - Additonal information Additional information: 82-year-old female who presents with left knee discomfort and swelling. The patient has arthritis of the left knee and periodically gets steroid injections, last received 1 about a month ago. Last few days, patient has noted increased swelling of the left knee, no erythema or significant increase in pain. She denies any injuries, no increased activity, No falls or twisting. She has not attempted any treatment for this including pain medicine, cool compress, or compression. She is has had this knee drained in the past and would like it to be done again today. Review of Systems Constitutional: reports: Reviewed and negative Cardiac: reports: Reviewed and negative Respiratory: reports: Reviewed and negative GI: reports: Reviewed and negative : reports: Reviewed and negative Musculoskeletal: reports: Joint pain, Joint swelling Neurologic: reports: Reviewed and negative Psychiatric: reports: Reviewed and negative PD PAST MEDICAL HISTORY - Past Medical History Past Medical History: Yes Cardiovascular: Hypertension, High cholesterol Respiratory: None Neuro: CVA Endocrine/Autoimmune: None GI: None : None HEENT: Chronic vision loss Psych: None Musculoskeletal: Osteoarthritis Derm: None - Past Surgical History Past Surgical History: Yes General: Other 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 - Present Medications Home Medications: Ambulatory Orders Medication Instructions Recorded Confirmed Aspirin [Aspir-Low] 81 mg PO DAILY 12/25/15 09/18/21 Calcium Carbonate/Vitamin D3 1 tab PO DAILY 12/25/15 09/18/21 [Caltrate 600 Plus D3 Tablet] Losartan Potassium [Cozaar] 100 mg PO DAILY 12/25/15 09/18/21 Cholecalciferol (Vitamin D3) 125 mcg PO DAILY 09/18/21 09/18/21 [Vitamin D3] Meclizine HCl [Motion Sickness] 25 mg PO ONCE PRN 09/18/21 09/18/21 Pantoprazole Sodium [Protonix] 40 mg PO DAILY 09/18/21 09/18/21 Rosuvastatin Calcium [Crestor] 10 mg PO DAILY 09/18/21 09/18/21 Thiamine [Vitamin B-1] 100 mg PO DAILY 09/18/21 09/18/21 - Allergies Allergies/Adverse Reactions: Allergies Allergy/AdvReac Type Severity Reaction Status Date / Time No Known Drug Allergies Allergy Verified 07/07/22 11:32 - Social History Does the pt smoke?: No Smoking Status: Never smoker Does the pt drink ETOH?: No Does the pt have substance abuse?: No - Immunizations Immunizations are current?: Yes - POLST Patient has POLST: No PD ED PE NORMAL - Vitals Vital signs reviewed: Yes - General General: Alert and oriented X 3, No acute distress, Well developed/nourished - HEENT HEENT: Atraumatic - Derm Derm: Normal color, Warm and dry - Extremities Extremities: No deformity, Other (Left knee effusion without erythema, full range of motion of the left knee with mild generalized discomfort, no obvious deformity. No skin injury.) - Neuro Neuro: Alert and oriented X 3 Eye Opening: Spontaneous Motor: Obeys Commands Verbal: Oriented GCS Score: 15 - Psych Psych: Normal mood, Normal affect Results - Vitals Vitals: Vital Signs - 24 hr 07/07/22 11:28 Temperature 36.9 C Heart Rate 66 Respiratory 20 Rate Blood Pressure 149/61 H O2 Saturation 100 Oxygen O2 Source Room air Procedures - Arthrocentesis Joint: Knee, Left Preparation: Consent obtained, Sterile prep and drape Anesthesia: Lidocaine 1% Fluid: Clear, Fluid obtained - cc (8) Aftercare: Dressing applied, No complications, Patient tolerated well PD Medical Decision Making - ED course Complexity details: considered differential, d/w patient, d/w family ED course: 82-year-old female with a history of left knee arthritis and prior steroid injections as well as arthrocentesis use presented with left knee swelling. Swelling is atraumatic, and there are no signs of septic arthritis such as erythema, fever or systemic symptoms, or decreased mobility. After discussion with patient and her about the risk versus benefits of arthrocentesis, patient did consent for this procedure. I prepped the patient in the usual manner, cleaned with alcohol and chlorhexidine and anesthetized the skin with 1% plain lidocaine in advanced an 18-gauge needle into the joint space. Initially I did not receive any fluid, I reposition the needle and obtained about 8 mL of clear straw-colored fluid. The fluid then stopped flowing and I could not obtain any additional fluid. I reposition once again without any fluid. I therefore discussed with patient that I would terminate the procedure at that point and the needle was withdrawn. A Band-Aid was applied. The patient tolerated procedure well and was advised that she may not feel substantially relief with the minimal fluid removed and recommended follow-up with orthopedics for repeat arthrocentesis if needed but advised to try supportive measures including light compression, cool compress, ibuprofen and Tylenol. I discussed return precautions if any signs of infection such as redness, increased swelling, increased pain, fever or other new concerns. Departure - Departure Disposition: 01 Home, Self Care Clinical Impression: Effusion, left knee Condition: Good Instructions: ED Effusion Knee Comments: You have a left knee effusion. We did attempt to drain this with minimal success removing about 5 mL of fluid. This may give you some relief, and you can use A compression wrap, ice pack, Tylenol and ibuprofen for pain. Please follow-up with your Ortho if you need ongoing drainage or return to the ER if you develop worsening symptoms such as redness, increased swelling, increased pain or other new concerns.
--- OUTSIDE RECORDS SUMMARY | 2022-07-07 11:59 | EXTERNAL MEDICAL SUMMARY RPT | Continuity of Care Document ---
Author Name Unknown Address [address] [place] [address] Phone Organization [facility] Address [address] [place] [id number] Phone Care Team Providers Care Panel Saw Operator Name Role Phone Unavailable Unavailable Unavailable Claire Morrow Unavailable Unavailable Results/Labs test date author facility value unit interpretation Result panel 1 (unknown) (no date) (unknown) (unknown) (no value) (units unknown) (unknown) (unknown) (no date) (unknown) (unknown) 06/04/22 (units unknown) (unknown) (unknown) (no date) (unknown) (unknown) 109 (units unknown) (unknown) (unknown) (no date) (unknown) (unknown) Age/Sex: 82 / F Date of Service: (units unknown) (unknown) (unknown) (no date) (unknown) (unknown) Allergies (units unknown) (unknown) (unknown) (no date) (unknown) (unknown) [place] [address] (units unknown) (unknown) (unknown) (no date) (unknown) (unknown) Attending Dr: Yamil Clark D.O. (units unknown) (unknown) (unknown) (no date) (unknown) (unknown) CVA, old, aphasia (u nits unknown) (unknown) (unknown) (no date) (unknown) (unknown) : Acct:[id number] (units unknown) (unknown) (unknown) (no date) (unknown) (unknown) Dept at [phone]. (units unknown) (unknown) (unknown) (no date) (unknown) (unknown) Documented By: Yamil Clark D.O. 06/04/22 1409 (units unknown) (unknown) (unknown) (no date) (unknown) (unknown) Draft (units unknown) (unknown) (unknown) (no date) (unknown) (unknown) Family History (units unknown) (unknown) (unknown) (no date) (unknown) (unknown) H/O section (units unknown) (unknown) (unknown) (no date) (unknown) (unknown) H/O removal of cyst (units unknown) (unknown) (unknown) (no date) (unknown) (unknown) Intake Clinical Staf f (units unknown) (unknown) (unknown) (no date) (unknown) (unknown) Intake perform ed by: Ann-Marie Bernabe (units unknown) (unknown) (unknown) (no date) (unknown) (unknown) Intake (units unknown) (unknown) (unknown) (no date) (unknown) (unknown) Left knee DJD (units unknown) (unknown) (unknown) (no date) (unknown) (unknown) Loc: PAIN (units unknown) (unknown) (unknown) (no date) (unknown) (unknown) Medical Histor y (units unknown) (unknown) (unknown) (no date) (unknown) (unknown) No Known Drug Allergies Allergy (Verified 12/30/21 15:53) (units unknown) (unknown) (unknown) (no date) (unknown) (unknown) Other No perti nent family history (units unknown) (unknown) (unknown) (no date) (unknown) (unknown) PFSH (units unknown) (unknown) (unknown) (no date) (unknown) (unknown) Pain Visit (units unknown) (unknown) (unknown) (no date) (unknown) (unknown) Patient: Warren Felipe MR#: [id number] (units unknown) (unknown) (unknown) (no date) (unknown) (unknown) Reason For Visit (un its unknown) (unknown) (unknown) (no date) (unknown) (unknown) Signed By: (units unknown) (unknown) (unknown) (no date) (unknown) (unknown) Smoking Status : Never smoker (units unknown) (unknown) (unknown) (no date) (unknown) (unknown) Social History (unit s unknown) (unknown) (unknown) (no date) (unknown) (unknown) Surgical Histo ry (units unknown) (unknown) (unknown) (no date) (unknown) (unknown) [facility] (units unknown) (unknown) (unknown) (no date) (unknown) (unknown) This note may have been all or partially generated using voice recognition (units unknown) (unknown) (unknown) (no date) (unknown) (unknown) Tobacco + Subs tance Use (units unknown) (unknown) (unknown) (no date) (unknown) (unknown) Tobacco Status (unit s unknown) (unknown) (unknown) (no date) (unknown) (unknown) Visit Reasons: 5M FOLLOW UP (units unknown) (unknown) (unknown) (no date) (unknown) (unknown) alcohol intake : current (units unknown) (unknown) (unknown) (no date) (unknown) (unknown) have occurred. If there are any questions, please contact the Medical Records (units unknown) (unknown) (unknown) (no date) (unknown) (unknown) household memb ers: spouse (units unknown) (unknown) (unknown) (no date) (unknown) (unknown) may occur. Occ asional wrong-word or 'sound-alike' substitutions may have (units unknown) (unknown) (unknown) (no date) (unknown) (unknown) occurred due t o the inherent limitations of voice recognition software. Please (units unknown) (unknown) (unknown) (no date) (unknown) (unknown) read the note carefully and recognize, using context, where these substitutions (units unknown) (unknown) (unknown) (no date) (unknown) (unknown) software. Alth ough every effort is made to edit content, athlete marketing agent errors (units unknown) (unknown) Result panel 2 (unknown) (no date) (unknown) (unknown) (no value) (units unknown) (unknown) (unknown) (no date) (unknown) (unknown) 05/29/21 [Hist ory Confirmed 06/04/22] (units unknown) (unknown) (unknown) (no date) (unknown) (unknown) 06/04/22 (units unknown) (unknown) (unknown) (no date) (unknown) (unknown) 109 (units unknown) (unknown) (unknown) (no date) (unknown) (unknown) Accompanied by : Self / Same As Patient (units unknown) (unknown) (unknown) (no date) (unknown) (unknown) Age/Sex: 82 / F Date of Service: (units unknown) (unknown) (unknown) (no date) (unknown) (unknown) Allergies (units unknown) (unknown) (unknown) (no date) (unknown) (unknown) [place] [address] (units unknown) (unknown) (unknown) (no date) (unknown) (unknown) Attending Dr: Yamil Clark D.O. (units unknown) (unknown) (unknown) (no date) (unknown) (unknown) CVA, old, aphasia (u nits unknown) (unknown) (unknown) (no date) (unknown) (unknown) Confirmed 06/04/22] (units unknown) (unknown) (unknown) (no date) (unknown) (unknown) : 1 Acct:[id number] (units unknown) (unknown) (unknown) (no date) (unknown) (unknown) Dept at . (units unknown) (unknown) (unknown) (no date) (unknown) (unknown) Documented By: Yamil Clark D.O. 06/04/22 1409 (units unknown) (unknown) (unknown) (no date) (unknown) (unknown) Draft (units unknown) (unknown) (unknown) (no date) (unknown) (unknown) Family History (units unknown) (unknown) (unknown) (no date) (unknown) (unknown) H/O section (units unknown) (unknown) (unknown) (no date) (unknown) (unknown) H/O removal of cyst (units unknown) (unknown) (unknown) (no date) (unknown) (unknown) HERE FOR LEFT KNEE ( units unknown) (unknown) (unknown) (no date) (unknown) (unknown) Intake Clinical Staf f (units unknown) (unknown) (unknown) (no date) (unknown) (unknown) Intake Note: (units unknown) (unknown) (unknown) (no date) (unknown) (unknown) Intake perform ed by: Ann-Marie Bernabe (units unknown) (unknown) (unknown) (no date) (unknown) (unknown) Intake (units unknown) (unknown) (unknown) (no date) (unknown) (unknown) Left knee DJD (units unknown) (unknown) (unknown) (no date) (unknown) (unknown) Loc: PAIN (units unknown) (unknown) (unknown) (no date) (unknown) (unknown) Medical Histor y (units unknown) (unknown) (unknown) (no date) (unknown) (unknown) Medications (units unknown) (unknown) (unknown) (no date) (unknown) (unknown) No Known Drug Allergies Allergy (Verified 06/04/22 14:12) (units unknown) (unknown) (unknown) (no date) (unknown) (unknown) Other No perti nent family history (units unknown) (unknown) (unknown) (no date) (unknown) (unknown) PFSH (units unknown) (unknown) (unknown) (no date) (unknown) (unknown) Pain Visit (units unknown) (unknown) (unknown) (no date) (unknown) (unknown) Patient: Warren Felipe MR#: [id number] (units unknown) (unknown) (unknown) (no date) (unknown) (unknown) Reason For Visit (un its unknown) (unknown) (unknown) (no date) (unknown) (unknown) Signed By: (units unknown) (unknown) (unknown) (no date) (unknown) (unknown) Smoking Status : Never smoker (units unknown) (unknown) (unknown) (no date) (unknown) (unknown) Social History (unit s unknown) (unknown) (unknown) (no date) (unknown) (unknown) Surgical Histo ry (units unknown) (unknown) (unknown) (no date) (unknown) (unknown) [facility] (units unknown) (unknown) (unknown) (no date) (unknown) (unknown) This note may have been all or partially generated using voice recognition (units unknown) (unknown) (unknown) (no date) (unknown) (unknown) Tobacco + Subs tance Use (units unknown) (unknown) (unknown) (no date) (unknown) (unknown) Tobacco Status (unit s unknown) (unknown) (unknown) (no date) (unknown) (unknown) Visit Reasons: 5M FOLLOW UP, LEFT KNEE (units unknown) (unknown) (unknown) (no date) (unknown) (unknown) alcohol intake : current (units unknown) (unknown) (unknown) (no date) (unknown) (unknown) aspirin 81 mg tablet,delayed release 81 mg PO DAILY #30 tabs 08/03/21 [Rx (units unknown) (unknown) (unknown) (no date) (unknown) (unknown) cholecalcifero l (vitamin D3) 125 mcg (5,000 unit) capsule 125 mcg PO DAILY (units unknown) (unknown) (unknown) (no date) (unknown) (unknown) have occurred. If there are any questions, please contact the Medical Records (units unknown) (unknown) (unknown) (no date) (unknown) (unknown) household memb ers: spouse (units unknown) (unknown) (unknown) (no date) (unknown) (unknown) losartan 100 m g tablet 100 mg PO DAILY 02/05/20 [History Confirmed 06/04/22] (units unknown) (unknown) (unknown) (no date) (unknown) (unknown) magnesium 250 mg tablet 250 mg PO DAILY 12/30/21 [History Confirmed 06/04/22] (units unknown) (unknown) (unknown) (no date) (unknown) (unknown) may occur. Occ asional wrong-word or 'sound-alike' substitutions may have (units unknown) (unknown) (unknown) (no date) (unknown) (unknown) meclizine 25 m g tablet 25 mg PO .PRN 09/02/21 [History Confirmed 06/04/22] (units unknown) (unknown) (unknown) (no date) (unknown) (unknown) occurred due t o the inherent limitations of voice recognition software. Please (units unknown) (unknown) (unknown) (no date) (unknown) (unknown) pantoprazole 4 0 mg tablet,delayed release 40 mg PO DAILY 12/30/21 [History (units unknown) (unknown) (unknown) (no date) (unknown) (unknown) read the note carefully and recognize, using context, where these substitutions (units unknown) (unknown) (unknown) (no date) (unknown) (unknown) rosuvastatin 1 0 mg tablet 10 mg PO DAILY 12/30/21 [History Confirmed 06/04/22] (units unknown) (unknown) (unknown) (no date) (unknown) (unknown) software. Alth ough every effort is made to edit content, athlete marketing agent errors (units unknown) (unknown) (unknown) (no date) (unknown) (unknown) thiamine HCl ( vitamin B1) 100 mg tablet 100 mg PO DAILY 12/30/21 [History (units unknown) (unknown) (unknown) (no date) (unknown) (unknown) vitamin B comp shelley 1 tab PO DAILY 02/05/20 [History Confirmed 06/04/22] (units unknown) (unknown) Result panel 3 (unknown) (no date) (unknown) (unknown) (no value) (units unknown) (unknown) (unknown) (no date) (unknown) (unknown) 05/29/21 [Hist ory Confirmed 06/04/22] (units unknown) (unknown) (unknown) (no date) (unknown) (unknown) 06/04/22 (units unknown) (unknown) (unknown) (no date) (unknown) (unknown) 109 (units unknown) (unknown) (unknown) (no date) (unknown) (unknown) 14:21 (units unknown) (unknown) (unknown) (no date) (unknown) (unknown) Accompanied by : Self / Same As Patient (units unknown) (unknown) (unknown) (no date) (unknown) (unknown) Age/Sex: 82 / F Date of Service: (units unknown) (unknown) (unknown) (no date) (unknown) (unknown) Allergies (units unknown) (unknown) (unknown) (no date) (unknown) (unknown) [place] [address] (units unknown) (unknown) (unknown) (no date) (unknown) (unknown) Attending Dr: Yamil Clark D.O. (units unknown) (unknown) (unknown) (no date) (unknown) (unknown) BMI 26.0 (units unknown) (unknown) (unknown) (no date) (unknown) (unknown) BP 110/60 (units unknown) (unknown) (unknown) (no date) (unknown) (unknown) Blood Pressure Location Lt brachial (units unknown) (unknown) (unknown) (no date) (unknown) (unknown) CVA, old, aphasia (u nits unknown) (unknown) (unknown) (no date) (unknown) (unknown) Confirmed 06/04/22] (units unknown) (unknown) (unknown) (no date) (unknown) (unknown) : 1 Acct:[id number] (units unknown) (unknown) (unknown) (no date) (unknown) (unknown) Dept at . (units unknown) (unknown) (unknown) (no date) (unknown) (unknown) Documented By: Yamil Clark D.O. 06/04/22 1409 (units unknown) (unknown) (unknown) (no date) (unknown) (unknown) Draft (units unknown) (unknown) (unknown) (no date) (unknown) (unknown) Family History (units unknown) (unknown) (unknown) (no date) (unknown) (unknown) H/O section (units unknown) (unknown) (unknown) (no date) (unknown) (unknown) H/O removal of cyst (units unknown) (unknown) (unknown) (no date) (unknown) (unknown) HERE FOR LEFT KNEE ( units unknown) (unknown) (unknown) (no date) (unknown) (unknown) Height 4 ft 11 in (u nits unknown) (unknown) (unknown) (no date) (unknown) (unknown) Intake Clinical Staf f (units unknown) (unknown) (unknown) (no date) (unknown) (unknown) Intake Note: (units unknown) (unknown) (unknown) (no date) (unknown) (unknown) Intake perform ed by: Ann-Marie Bernabe (units unknown) (unknown) (unknown) (no date) (unknown) (unknown) Intake (units unknown) (unknown) (unknown) (no date) (unknown) (unknown) Is patient in pain?: Yes (HERE FOR LEFT KNEE) Pain scale (1-10): 4 (units unknown) (unknown) (unknown) (no date) (unknown) (unknown) Left knee DJD (units unknown) (unknown) (unknown) (no date) (unknown) (unknown) Loc: PAIN (units unknown) (unknown) (unknown) (no date) (unknown) (unknown) Medical Histor y (units unknown) (unknown) (unknown) (no date) (unknown) (unknown) Medications (units unknown) (unknown) (unknown) (no date) (unknown) (unknown) No Known Drug Allergies Allergy (Verified 06/04/22 14:12) (units unknown) (unknown) (unknown) (no date) (unknown) (unknown) Other No perti nent family history (units unknown) (unknown) (unknown) (no date) (unknown) (unknown) Oxygen Deliver y Method room air (units unknown) (unknown) (unknown) (no date) (unknown) (unknown) PFSH (units unknown) (unknown) (unknown) (no date) (unknown) (unknown) Pain Scale (units unknown) (unknown) (unknown) (no date) (unknown) (unknown) Pain Visit (units unknown) (unknown) (unknown) (no date) (unknown) (unknown) Patient: Warren Felipe MR#: [id number] (units unknown) (unknown) (unknown) (no date) (unknown) (unknown) Position Sitting (un its unknown) (unknown) (unknown) (no date) (unknown) (unknown) Pulse 58 L (units unknown) (unknown) (unknown) (no date) (unknown) (unknown) Pulse Oximetry (%) 1 00 (units unknown) (unknown) (unknown) (no date) (unknown) (unknown) Pulse Source Monitor (units unknown) (unknown) (unknown) (no date) (unknown) (unknown) Reason For Visit (un its unknown) (unknown) (unknown) (no date) (unknown) (unknown) Signed By: (units unknown) (unknown) (unknown) (no date) (unknown) (unknown) Smoking Status : Never smoker (units unknown) (unknown) (unknown) (no date) (unknown) (unknown) Social History (unit s unknown) (unknown) (unknown) (no date) (unknown) (unknown) Surgical Histo ry (units unknown) (unknown) (unknown) (no date) (unknown) (unknown) Temp 97.4 F L (units unknown) (unknown) (unknown) (no date) (unknown) (unknown) Temp Source Te mporal Artery Scan (units unknown) (unknown) (unknown) (no date) (unknown) (unknown) [facility] (units unknown) (unknown) (unknown) (no date) (unknown) (unknown) This note may have been all or partially generated using voice recognition (units unknown) (unknown) (unknown) (no date) (unknown) (unknown) Tobacco + Subs tance Use (units unknown) (unknown) (unknown) (no date) (unknown) (unknown) Tobacco Status (unit s unknown) (unknown) (unknown) (no date) (unknown) (unknown) Visit Reasons: 5M FOLLOW UP, LEFT KNEE (units unknown) (unknown) (unknown) (no date) (unknown) (unknown) Vitals (units unknown) (unknown) (unknown) (no date) (unknown) (unknown) Weight 129 lb 2 oz ( units unknown) (unknown) (unknown) (no date) (unknown) (unknown) alcohol intake : current (units unknown) (unknown) (unknown) (no date) (unknown) (unknown) aspirin 81 mg tablet,delayed release 81 mg PO DAILY #30 tabs 08/03/21 [Rx (units unknown) (unknown) (unknown) (no date) (unknown) (unknown) cholecalcifero l (vitamin D3) 125 mcg (5,000 unit) capsule 125 mcg PO DAILY (units unknown) (unknown) (unknown) (no date) (unknown) (unknown) have occurred. If there are any questions, please contact the Medical Records (units unknown) (unknown) (unknown) (no date) (unknown) (unknown) household memb ers: spouse (units unknown) (unknown) (unknown) (no date) (unknown) (unknown) losartan 100 m g tablet 100 mg PO DAILY 02/05/20 [History Confirmed 06/04/22] (units unknown) (unknown) (unknown) (no date) (unknown) (unknown) magnesium 250 mg tablet 250 mg PO DAILY 12/30/21 [History Confirmed 06/04/22] (units unknown) (unknown) (unknown) (no date) (unknown) (unknown) may occur. Occ asional wrong-word or 'sound-alike' substitutions may have (units unknown) (unknown) (unknown) (no date) (unknown) (unknown) meclizine 25 m g tablet 25 mg PO .PRN 09/02/21 [History Confirmed 06/04/22] (units unknown) (unknown) (unknown) (no date) (unknown) (unknown) occurred due t o the inherent limitations of voice recognition software. Please (units unknown) (unknown) (unknown) (no date) (unknown) (unknown) pantoprazole 4 0 mg tablet,delayed release 40 mg PO DAILY 12/30/21 [History (units unknown) (unknown) (unknown) (no date) (unknown) (unknown) read the note carefully and recognize, using context, where these substitutions (units unknown) (unknown) (unknown) (no date) (unknown) (unknown) rosuvastatin 1 0 mg tablet 10 mg PO DAILY 12/30/21 [History Confirmed 06/04/22] (units unknown) (unknown) (unknown) (no date) (unknown) (unknown) software. Alth ough every effort is made to edit content, athlete marketing agent errors (units unknown) (unknown) (unknown) (no date) (unknown) (unknown) thiamine HCl ( vitamin B1) 100 mg tablet 100 mg PO DAILY 12/30/21 [History (units unknown) (unknown) (unknown) (no date) (unknown) (unknown) vitamin B comp shelley 1 tab PO DAILY 02/05/20 [History Confirmed 06/04/22] (units unknown) (unknown) Result panel 4 (unknown) (no date) (unknown) (unknown) (no value) (units unknown) (unknown) (unknown) (no date) (unknown) (unknown) 05/29/21 [Hist ory Confirmed 06/04/22] (units unknown) (unknown) (unknown) (no date) (unknown) (unknown) 06/04/22 (units unknown) (unknown) (unknown) (no date) (unknown) (unknown) 109 (units unknown) (unknown) (unknown) (no date) (unknown) (unknown) 14:21 (units unknown) (unknown) (unknown) (no date) (unknown) (unknown) Accompanied by : Self / Same As Patient (units unknown) (unknown) (unknown) (no date) (unknown) (unknown) Age/Sex: 82 / F Date of Service: (units unknown) (unknown) (unknown) (no date) (unknown) (unknown) Allergies (units unknown) (unknown) (unknown) (no date) (unknown) (unknown) [place] [address] (units unknown) (unknown) (unknown) (no date) (unknown) (unknown) As oral consen t, we did review the risk to the above-stated procedure including (units unknown) (unknown) (unknown) (no date) (unknown) (unknown) Assessment + Plan (u nits unknown) (unknown) (unknown) (no date) (unknown) (unknown) Attending Dr: Yamil Clark D.O. (units unknown) (unknown) (unknown) (no date) (unknown) (unknown) BMI 26.0 (units unknown) (unknown) (unknown) (no date) (unknown) (unknown) BP 110/60 (units unknown) (unknown) (unknown) (no date) (unknown) (unknown) Blood Pressure Location Lt brachial (units unknown) (unknown) (unknown) (no date) (unknown) (unknown) CVA, old, aphasia (u nits unknown) (unknown) (unknown) (no date) (unknown) (unknown) Confirmed 06/04/22] (units unknown) (unknown) (unknown) (no date) (unknown) (unknown) : 1 Acct:[id number] (units unknown) (unknown) (unknown) (no date) (unknown) (unknown) Dept at [phone] (units unknown) (unknown) (unknown) (no date) (unknown) (unknown) Documented By: Yamil Clark D.O. 06/04/22 1409 (units unknown) (unknown) (unknown) (no date) (unknown) (unknown) Draft (units unknown) (unknown) (unknown) (no date) (unknown) (unknown) Durolane 60mg Today (units unknown) (unknown) (unknown) (no date) (unknown) (unknown) Family History (units unknown) (unknown) (unknown) (no date) (unknown) (unknown) H/O section (units unknown) (unknown) (unknown) (no date) (unknown) (unknown) H/O removal of cyst (units unknown) (unknown) (unknown) (no date) (unknown) (unknown) HERE FOR LEFT KNEE ( units unknown) (unknown) (unknown) (no date) (unknown) (unknown) Height 4 ft 11 in (u nits unknown) (unknown) (unknown) (no date) (unknown) (unknown) Intake Clinical Staf f (units unknown) (unknown) (unknown) (no date) (unknown) (unknown) Intake Note: (units unknown) (unknown) (unknown) (no date) (unknown) (unknown) Intake perform ed by: Ann-Marie Bernabe (units unknown) (unknown) (unknown) (no date) (unknown) (unknown) Intake (units unknown) (unknown) (unknown) (no date) (unknown) (unknown) Interventions/Proc. (units unknown) (unknown) (unknown) (no date) (unknown) (unknown) Interventions: (unit s unknown) (unknown) (unknown) (no date) (unknown) (unknown) Is patient in pain?: Yes (HERE FOR LEFT KNEE) Pain scale (1-10): 4 (units unknown) (unknown) (unknown) (no date) (unknown) (unknown) Kenalog combin ed with 4cc of 0.5% ropivacaine was administered without incident. (units unknown) (unknown) (unknown) (no date) (unknown) (unknown) Left knee DJD (units unknown) (unknown) (unknown) (no date) (unknown) (unknown) Loc: PAIN (units unknown) (unknown) (unknown) (no date) (unknown) (unknown) Medical Histor y (units unknown) (unknown) (unknown) (no date) (unknown) (unknown) Medications (units unknown) (unknown) (unknown) (no date) (unknown) (unknown) Medications: (units unknown) (unknown) (unknown) (no date) (unknown) (unknown) New (units unknown) (unknown) (unknown) (no date) (unknown) (unknown) No Known Drug Allergies Allergy (Verified 06/04/22 14:12) (units unknown) (unknown) (unknown) (no date) (unknown) (unknown) Orders (units unknown) (unknown) (unknown) (no date) (unknown) (unknown) Orders: (units unknown) (unknown) (unknown) (no date) (unknown) (unknown) Other No perti nent family history (units unknown) (unknown) (unknown) (no date) (unknown) (unknown) Oxygen Deliver y Method room air (units unknown) (unknown) (unknown) (no date) (unknown) (unknown) PFSH (units unknown) (unknown) (unknown) (no date) (unknown) (unknown) Pain Scale (units unknown) (unknown) (unknown) (no date) (unknown) (unknown) Pain Visit (units unknown) (unknown) (unknown) (no date) (unknown) (unknown) Patient: Warren Felipe MR#: [id number] (units unknown) (unknown) (unknown) (no date) (unknown) (unknown) Position Sitting (un its unknown) (unknown) (unknown) (no date) (unknown) (unknown) Pulse 58 L (units unknown) (unknown) (unknown) (no date) (unknown) (unknown) Pulse Oximetry (%) 1 00 (units unknown) (unknown) (unknown) (no date) (unknown) (unknown) Pulse Source Monitor (units unknown) (unknown) (unknown) (no date) (unknown) (unknown) Reason For Visit (un its unknown) (unknown) (unknown) (no date) (unknown) (unknown) Signed By: (units unknown) (unknown) (unknown) (no date) (unknown) (unknown) Smoking Status : Never smoker (units unknown) (unknown) (unknown) (no date) (unknown) (unknown) Social History (unit s unknown) (unknown) (unknown) (no date) (unknown) (unknown) Surgical Histo ry (units unknown) (unknown) (unknown) (no date) (unknown) (unknown) Temp 97.4 F L (units unknown) (unknown) (unknown) (no date) (unknown) (unknown) Temp Source Te mporal Artery Scan (units unknown) (unknown) (unknown) (no date) (unknown) (unknown) [facility] (units unknown) (unknown) (unknown) (no date) (unknown) (unknown) The left knee was prepped in the superior anterior fashion with suprapatellar (units unknown) (unknown) (unknown) (no date) (unknown) (unknown) The patient to lerated the procedure without signs or symptoms of complications (units unknown) (unknown) (unknown) (no date) (unknown) (unknown) This note may have been all or partially generated using voice recognition (units unknown) (unknown) (unknown) (no date) (unknown) (unknown) Tobacco + Subs tance Use (units unknown) (unknown) (unknown) (no date) (unknown) (unknown) Tobacco Status (unit s unknown) (unknown) (unknown) (no date) (unknown) (unknown) Visit Reasons: 5M FOLLOW UP, LEFT KNEE (units unknown) (unknown) (unknown) (no date) (unknown) (unknown) Vitals (units unknown) (unknown) (unknown) (no date) (unknown) (unknown) Weight 129 lb 2 oz ( units unknown) (unknown) (unknown) (no date) (unknown) (unknown) alcohol intake : current (units unknown) (unknown) (unknown) (no date) (unknown) (unknown) approach from a lateral perspective.? Ultrasound guidance was used to identify (units unknown) (unknown) (unknown) (no date) (unknown) (unknown) approxiately 1 5cc of the knee serrous fluid off we then proceeded with the (units unknown) (unknown) (unknown) (no date) (unknown) (unknown) aspirin 81 mg tablet,delayed release 81 mg PO DAILY #30 tabs 08/03/21 [Rx (units unknown) (unknown) (unknown) (no date) (unknown) (unknown) but not limite d to bleeding, infection, allergic reaction, nerve injury, stroke, (units unknown) (unknown) (unknown) (no date) (unknown) (unknown) cholecalcifero l (vitamin D3) 125 mcg (5,000 unit) capsule 125 mcg PO DAILY (units unknown) (unknown) (unknown) (no date) (unknown) (unknown) have occurred. If there are any questions, please contact the Medical Records (units unknown) (unknown) (unknown) (no date) (unknown) (unknown) household memb ers: spouse (units unknown) (unknown) (unknown) (no date) (unknown) (unknown) hyaluronate so dium, stabilized 60 mg (3 mL) intra-articular ONCE 3 mL 0RF (units unknown) (unknown) (unknown) (no date) (unknown) (unknown) introduced and advanced into the intra-articular space.? After pullling (units unknown) (unknown) (unknown) (no date) (unknown) (unknown) losartan 100 m g tablet 100 mg PO DAILY 02/05/20 [History Confirmed 06/04/22] (units unknown) (unknown) (unknown) (no date) (unknown) (unknown) magnesium 250 mg tablet 250 mg PO DAILY 12/30/21 [History Confirmed 06/04/22] (units unknown) (unknown) (unknown) (no date) (unknown) (unknown) may occur. Occ asional wrong-word or 'sound-alike' substitutions may have (units unknown) (unknown) (unknown) (no date) (unknown) (unknown) meclizine 25 m g tablet 25 mg PO .PRN 09/02/21 [History Confirmed 06/04/22] (units unknown) (unknown) (unknown) (no date) (unknown) (unknown) noted signific ant relief prior to dismissal in excellent condition of their own (units unknown) (unknown) (unknown) (no date) (unknown) (unknown) occurred due t o the inherent limitations of voice recognition software. Please (units unknown) (unknown) (unknown) (no date) (unknown) (unknown) pantoprazole 4 0 mg tablet,delayed release 40 mg PO DAILY 12/30/21 [History (units unknown) (unknown) (unknown) (no date) (unknown) (unknown) paralysis, and and they elected to proceed. Informed consent was obtained (units unknown) (unknown) (unknown) (no date) (unknown) (unknown) power. (units unknown) (unknown) (unknown) (no date) (unknown) (unknown) read the note carefully and recognize, using context, where these substitutions (units unknown) (unknown) (unknown) (no date) (unknown) (unknown) rosuvastatin 1 0 mg tablet 10 mg PO DAILY 12/30/21 [History Confirmed 06/04/22] (units unknown) (unknown) (unknown) (no date) (unknown) (unknown) software. Alth ough every effort is made to edit content, athlete marketing agent errors (units unknown) (unknown) (unknown) (no date) (unknown) (unknown) steroid inject ion. After negative aspiration total of 6cc including 2cc of (units unknown) (unknown) (unknown) (no date) (unknown) (unknown) the anterior a rticular space.? A 25 gauge needle with 1% lidocaine solution was (units unknown) (unknown) (unknown) (no date) (unknown) (unknown) the injection procedure for complete details. (units unknown) (unknown) (unknown) (no date) (unknown) (unknown) thiamine HCl ( vitamin B1) 100 mg tablet 100 mg PO DAILY 12/30/21 [History (units unknown) (unknown) (unknown) (no date) (unknown) (unknown) today without guarantees or assurances of complete relief applied. Please see (units unknown) (unknown) (unknown) (no date) (unknown) (unknown) used for anest hetic. Subsequently then a 25 gauge needle was atraumatically (units unknown) (unknown) (unknown) (no date) (unknown) (unknown) vitamin B comp shelley 1 tab PO DAILY 02/05/20 [History Confirmed 06/04/22] (units unknown) (unknown) Result panel 5 (unknown) (no date) (unknown) (unknown) (no value) (units unknown) (unknown) (unknown) (no date) (unknown) (unknown) (1) CVA, old, aphasi a: (units unknown) (unknown) (unknown) (no date) (unknown) (unknown) (2) Left knee DJD: ( units unknown) (unknown) (unknown) (no date) (unknown) (unknown) (3) Acute CVA (cerebrovascular accident): (units unknown) (unknown) (unknown) (no date) (unknown) (unknown) 05/29/21 [Hist ory Confirmed 06/04/22] (units unknown) (unknown) (unknown) (no date) (unknown) (unknown) 06/04/22 (units unknown) (unknown) (unknown) (no date) (unknown) (unknown) 109 (units unknown) (unknown) (unknown) (no date) (unknown) (unknown) 12/30/2021 to was very helpful for as well as previous 05/30/2019 to in (units unknown) (unknown) (unknown) (no date) (unknown) (unknown) 02/05/2020 injections.? She does report that this was provided her significant (units unknown) (unknown) (unknown) (no date) (unknown) (unknown) 14:21 (units unknown) (unknown) (unknown) (no date) (unknown) (unknown) Accompanied by : Self / Same As Patient (units unknown) (unknown) (unknown) (no date) (unknown) (unknown) Age/Sex: 82 / F Date of Service: (units unknown) (unknown) (unknown) (no date) (unknown) (unknown) All other syst ems reviewed and are unremarkable except as noted in HPI. (units unknown) (unknown) (unknown) (no date) (unknown) (unknown) Allergies (units unknown) (unknown) (unknown) (no date) (unknown) (unknown) [place] [address] (units unknown) (unknown) (unknown) (no date) (unknown) (unknown) As oral consen t, we did review the risk to the above-stated procedure including (units unknown) (unknown) (unknown) (no date) (unknown) (unknown) Assessment + Plan (u nits unknown) (unknown) (unknown) (no date) (unknown) (unknown) Attending Dr: Yamil Clark D.O. (units unknown) (unknown) (unknown) (no date) (unknown) (unknown) BMI 26.0 (units unknown) (unknown) (unknown) (no date) (unknown) (unknown) BP 110/60 (units unknown) (unknown) (unknown) (no date) (unknown) (unknown) Blood Pressure Location Lt brachial (units unknown) (unknown) (unknown) (no date) (unknown) (unknown) CVA on 08/03/2021. 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 She is beginning (units unknown) (unknown) (unknown) (no date) (unknown) (unknown) CVA, old, aphasia (u nits unknown) (unknown) (unknown) (no date) (unknown) (unknown) Chief Complaint (uni ts unknown) (unknown) (unknown) (no date) (unknown) (unknown) Chief Complain t: left knee djd (units unknown) (unknown) (unknown) (no date) (unknown) (unknown) Confirmed 06/04/22] (units unknown) (unknown) (unknown) (no date) (unknown) (unknown) Coordination a ppears normal. DTR's 2/4 of biceps, triceps, KJs and AJs. No (units unknown) (unknown) (unknown) (no date) (unknown) (unknown) : 1 Acct:[id number] (units unknown) (unknown) (unknown) (no date) (unknown) (unknown) Denies recent trauma, fever or weight loss of unknown origin, immunocompromise (units unknown) (unknown) (unknown) (no date) (unknown) (unknown) Dept at . (units unknown) (unknown) (unknown) (no date) (unknown) (unknown) Details: (units unknown) (unknown) (unknown) (no date) (unknown) (unknown) Documented By: Yamil Clark D.O. 06/04/22 1409 (units unknown) (unknown) (unknown) (no date) (unknown) (unknown) Draft (units unknown) (unknown) (unknown) (no date) (unknown) (unknown) Endorses progr essive knee pain, CVA 08/03/2021 residual aphasia (units unknown) (unknown) (unknown) (no date) (unknown) (unknown) Exam Narrative (unit s unknown) (unknown) (unknown) (no date) (unknown) (unknown) Exam Narrative: (uni ts unknown) (unknown) (unknown) (no date) (unknown) (unknown) Exam (units unknown) (unknown) (unknown) (no date) (unknown) (unknown) Family History (units unknown) (unknown) (unknown) (no date) (unknown) (unknown) Gait: Full fernando ght bearing. No assistive device. Mildly Antalgic gait. (units unknown) (unknown) (unknown) (no date) (unknown) (unknown) General: The p atient is in no obvious distress. Normal affect. Fully (units unknown) (unknown) (unknown) (no date) (unknown) (unknown) H/O section (units unknown) (unknown) (unknown) (no date) (unknown) (unknown) H/O removal of cyst (units unknown) (unknown) (unknown) (no date) (unknown) (unknown) HERE FOR LEFT KNEE ( units unknown) (unknown) (unknown) (no date) (unknown) (unknown) HPI (units unknown) (unknown) (unknown) (no date) (unknown) (unknown) Height 4 ft 11 in (u nits unknown) (unknown) (unknown) (no date) (unknown) (unknown) Informed conse nt was obtained today without guarantees or assurances of complete (units unknown) (unknown) (unknown) (no date) (unknown) (unknown) Intake Clinical Staf f (units unknown) (unknown) (unknown) (no date) (unknown) (unknown) Intake Note: (units unknown) (unknown) (unknown) (no date) (unknown) (unknown) Intake perform ed by: Ann-Marie Bernabe (units unknown) (unknown) (unknown) (no date) (unknown) (unknown) Intake (units unknown) (unknown) (unknown) (no date) (unknown) (unknown) Interventions/Proc. 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 (units unknown) (unknown) (unknown) (no date) (unknown) (unknown) Left Lower Ext remity: Left lower extremity exam shows grossly normal alignment, (units unknown) (unknown) (unknown) (no date) (unknown) (unknown) Left Upper Ext remity: Left upper extremity exam shows grossly normal alignment, (units unknown) (unknown) (unknown) (no date) (unknown) (unknown) Left knee DJD (units unknown) (unknown) (unknown) (no date) (unknown) (unknown) Loc: PAIN (units unknown) (unknown) (unknown) (no date) (unknown) (unknown) MSK: System re viewed and no additional complaints, except as documented. (units unknown) (unknown) (unknown) (no date) (unknown) (unknown) Medical Histor y (units unknown) (unknown) (unknown) (no date) (unknown) (unknown) Medications (units unknown) (unknown) (unknown) (no date) (unknown) (unknown) Medications: (units unknown) (unknown) (unknown) (no date) (unknown) (unknown) Neuro: System reviewed and no additional complaints, except as documented. (units unknown) (unknown) (unknown) (no date) (unknown) (unknown) Neurologic: CN II-XII grossly intact. Motor 5/5 allover. No fasciculation seen. (units unknown) (unknown) (unknown) (no date) (unknown) (unknown) New (units unknown) (unknown) (unknown) (no date) (unknown) (unknown) No Known Drug Allergies Allergy (Verified 06/04/22 14:12) (units unknown) (unknown) (unknown) (no date) (unknown) (unknown) Orders (units unknown) (unknown) (unknown) (no date) (unknown) (unknown) Orders: (units unknown) (unknown) (unknown) (no date) (unknown) (unknown) Osteoarthritis type: primary Qualified Code(s): M17.12 - Unilateral (units unknown) (unknown) (unknown) (no date) (unknown) (unknown) Other No perti nent family history (units unknown) (unknown) (unknown) (no date) (unknown) (unknown) Oxygen Deliver y Method room air (units unknown) (unknown) (unknown) (no date) (unknown) (unknown) PFSH (units unknown) (unknown) (unknown) (no date) (unknown) (unknown) Pain Scale (units unknown) (unknown) (unknown) (no date) (unknown) (unknown) Pain Visit (units unknown) (unknown) (unknown) (no date) (unknown) (unknown) Patient: Warren Felipe MR#: [id number] (units unknown) (unknown) (unknown) (no date) (unknown) (unknown) Plan (units unknown) (unknown) (unknown) (no date) (unknown) (unknown) Position Sitting (un its unknown) (unknown) (unknown) (no date) (unknown) (unknown) Pulse 58 L (units unknown) (unknown) (unknown) (no date) (unknown) (unknown) Pulse Oximetry (%) 1 00 (units unknown) (unknown) (unknown) (no date) (unknown) (unknown) Pulse Source Monitor (units unknown) (unknown) (unknown) (no date) (unknown) (unknown) Qualifiers: (units unknown) (unknown) (unknown) (no date) (unknown) (unknown) ROS Narrative (units unknown) (unknown) (unknown) (no date) (unknown) (unknown) ROS Narrative: (unit s unknown) (unknown) (unknown) (no date) (unknown) (unknown) ROS (units unknown) (unknown) (unknown) (no date) (unknown) (unknown) Reason For Visit (un its unknown) (unknown) (unknown) (no date) (unknown) (unknown) Right Lower Ex tremity: Right lower extremity exam shows grossly normal (units unknown) (unknown) (unknown) (no date) (unknown) (unknown) Right Upper Ex tremity: Right upper extremity exam shows grossly normal (units unknown) (unknown) (unknown) (no date) (unknown) (unknown) Warren and her [place] did discuss at length her underlying pathology with (units unknown) (unknown) (unknown) (no date) (unknown) (unknown) Warren present s today for further evaluation treatment of her left knee DJD.? (units unknown) (unknown) (unknown) (no date) (unknown) (unknown) Sensation is g rossly intact to light touch throughout the UEs and LEs. (units unknown) (unknown) (unknown) (no date) (unknown) (unknown) She does repor t that since our last evaluation unfortunately she has undergone a (units unknown) (unknown) (unknown) (no date) (unknown) (unknown) She is well-kn own in secondary to previous treatments for this left knee DJD.? (units unknown) (unknown) (unknown) (no date) (unknown) (unknown) She reports ot herwise feeling well maintain the Covid19 social restrictions (units unknown) (unknown) (unknown) (no date) (unknown) (unknown) She reports th at previous left knee intra-articular injections performed on (units unknown) (unknown) (unknown) (no date) (unknown) (unknown) She was given a post-injection instruction sheet as well as pain like to (units unknown) (unknown) (unknown) (no date) (unknown) (unknown) Signed By: (units unknown) (unknown) (unknown) (no date) (unknown) (unknown) Skin: No signi ficant skin lesions are noted. (units unknown) (unknown) (unknown) (no date) (unknown) (unknown) Smoking Status : Never smoker (units unknown) (unknown) (unknown) (no date) (unknown) (unknown) Social History (unit s unknown) (unknown) (unknown) (no date) (unknown) (unknown) Spine: Cervica l spine ROM is reduced in all planes including flexion/extension, (units unknown) (unknown) (unknown) (no date) (unknown) (unknown) Status: Acute (units unknown) (unknown) (unknown) (no date) (unknown) (unknown) Surgical Histo ry (units unknown) (unknown) (unknown) (no date) (unknown) (unknown) Temp 97.4 F L (units unknown) (unknown) (unknown) (no date) (unknown) (unknown) Temp Source Te mporal Artery Scan (units unknown) (unknown) (unknown) (no date) (unknown) (unknown) [facility] (units unknown) (unknown) (unknown) (no date) (unknown) (unknown) The left knee was prepped in the superior anterior fashion with suprapatellar (units unknown) (unknown) (unknown) (no date) (unknown) (unknown) The patient to lerated the procedure without signs or symptoms of complications (units unknown) (unknown) (unknown) (no date) (unknown) (unknown) There is no te nderness over the greater trochanteric region. Tenderness along (units unknown) (unknown) (unknown) (no date) (unknown) (unknown) This note may have been all or partially generated using voice recognition (units unknown) (unknown) (unknown) (no date) (unknown) (unknown) Tobacco + Subs tance Use (units unknown) (unknown) (unknown) (no date) (unknown) (unknown) Tobacco Status (unit s unknown) (unknown) (unknown) (no date) (unknown) (unknown) Visit Reasons: 5M FOLLOW UP, LEFT KNEE (units unknown) (unknown) (unknown) (no date) (unknown) (unknown) Vitals (units unknown) (unknown) (unknown) (no date) (unknown) (unknown) We did review the above-stated procedure at length and verbal consent was (units unknown) (unknown) (unknown) (no date) (unknown) (unknown) Weight 129 lb 2 oz ( units unknown) (unknown) (unknown) (no date) (unknown) (unknown) alcohol intake : current (units unknown) (unknown) (unknown) (no date) (unknown) (unknown) alignment, ran ge of motion, and stability with no swelling, atrophy or effusion. (units unknown) (unknown) (unknown) (no date) (unknown) (unknown) alignment, ran ge of motion, strength and stability with no swelling, atrophy or (units unknown) (unknown) (unknown) (no date) (unknown) (unknown) approach from a lateral perspective.? Ultrasound guidance was used to identify (units unknown) (unknown) (unknown) (no date) (unknown) (unknown) approxiately 1 5cc of the knee serrous fluid off we then proceeded with the (units unknown) (unknown) (unknown) (no date) (unknown) (unknown) aspirin 81 mg tablet,delayed release 81 mg PO DAILY #30 tabs 08/03/21 [Rx (units unknown) (unknown) (unknown) (no date) (unknown) (unknown) associated wit h the DJD.? She did report prominent relief with her 1st (units unknown) (unknown) (unknown) (no date) (unknown) (unknown) but not limite d to bleeding, infection, allergic reaction, nerve injury, stroke, (units unknown) (unknown) (unknown) (no date) (unknown) (unknown) cholecalcifero l (vitamin D3) 125 mcg (5,000 unit) capsule 125 mcg PO DAILY (units unknown) (unknown) (unknown) (no date) (unknown) (unknown) clonus appreci ated. Babinski and Nelda's sign negative bilaterally. (units unknown) (unknown) (unknown) (no date) (unknown) (unknown) discuss Visco supplement injection versus repeat corticosteroid injections.? She (units unknown) (unknown) (unknown) (no date) (unknown) (unknown) effusion. (units unknown) (unknown) (unknown) (no date) (unknown) (unknown) excellent cond ition own prior.? (units unknown) (unknown) (unknown) (no date) (unknown) (unknown) have occurred. If there are any questions, please contact the Medical Records (units unknown) (unknown) (unknown) (no date) (unknown) (unknown) her bilateral knee DJD D worse on left than right.? We did review her a recent (units unknown) (unknown) (unknown) (no date) (unknown) (unknown) household memb ers: spouse (units unknown) (unknown) (unknown) (no date) (unknown) (unknown) injection.? We did discuss injection treatments available to her as and we did (units unknown) (unknown) (unknown) (no date) (unknown) (unknown) injury, stroke , paralysis and and the patient elected to proceed.? (units unknown) (unknown) (unknown) (no date) (unknown) (unknown) intravenous dr ug use, sustained glucocorticoid use, osteoporosis, or a focal (units unknown) (unknown) (unknown) (no date) (unknown) (unknown) introduced and advanced into the intra-articular space.? After pullling (units unknown) (unknown) (unknown) (no date) (unknown) (unknown) knee DJD (units unknown) (unknown) (unknown) (no date) (unknown) (unknown) lateral rotati ons and side-bending. On palpation, there is no tenderness over (units unknown) (unknown) (unknown) (no date) (unknown) (unknown) losartan 100 m g tablet 100 mg PO DAILY 02/05/20 [History Confirmed 06/04/22] (units unknown) (unknown) (unknown) (no date) (unknown) (unknown) magnesium 250 mg tablet 250 mg PO DAILY 12/30/21 [History Confirmed 06/04/22] (units unknown) (unknown) (unknown) (no date) (unknown) (unknown) maintain.? I w ill follow up with her on an as-needed basis for this or her other (units unknown) (unknown) (unknown) (no date) (unknown) (unknown) may occur. Occ asional wrong-word or 'sound-alike' substitutions may have (units unknown) (unknown) (unknown) (no date) (unknown) (unknown) meclizine 25 m g tablet 25 mg PO .PRN 09/02/21 [History Confirmed 06/04/22] (units unknown) (unknown) (unknown) (no date) (unknown) (unknown) neurological d eficit with progressive or disabling symptoms. (units unknown) (unknown) (unknown) (no date) (unknown) (unknown) noted . Lhermi ttes and Spurling's maneuver are negative. (units unknown) (unknown) (unknown) (no date) (unknown) (unknown) noted signific ant relief prior to dismissal in excellent condition of their own (units unknown) (unknown) (unknown) (no date) (unknown) (unknown) obtained today , As oral consent, we did review the risks of the above stated (units unknown) (unknown) (unknown) (no date) (unknown) (unknown) occupational t herapy next Tuesday.? She would like to pursue repeat injection to (units unknown) (unknown) (unknown) (no date) (unknown) (unknown) occurred due t o the inherent limitations of voice recognition software. Please (units unknown) (unknown) (unknown) (no date) (unknown) (unknown) or immunosuppr essive therapy, previous or current cancer diagnosis, history of (units unknown) (unknown) (unknown) (no date) (unknown) (unknown) oriented. (units unknown) (unknown) (unknown) (no date) (unknown) (unknown) pantoprazole 4 0 mg tablet,delayed release 40 mg PO DAILY 12/30/21 [History (units unknown) (unknown) (unknown) (no date) (unknown) (unknown) paralysis, and and they elected to proceed. Informed consent was obtained (units unknown) (unknown) (unknown) (no date) (unknown) (unknown) power. (units unknown) (unknown) (unknown) (no date) (unknown) (unknown) primary osteoarthritis, left knee (units unknown) (unknown) (unknown) (no date) (unknown) (unknown) procedure incl uding not limited to bleeding, infection, allergic reaction, nerve (units unknown) (unknown) (unknown) (no date) (unknown) (unknown) range of motio n, and stability with no swelling, atrophy or effusion.There is no (units unknown) (unknown) (unknown) (no date) (unknown) (unknown) range of motio n, strength and stability with no swelling, atrophy or effusion. (units unknown) (unknown) (unknown) (no date) (unknown) (unknown) read the note carefully and recognize, using context, where these substitutions (units unknown) (unknown) (unknown) (no date) (unknown) (unknown) relief and she would like to pursue repeat injection at this time to offset her (units unknown) (unknown) (unknown) (no date) (unknown) (unknown) relief applied .? Please see the procedure note for full details. She did (units unknown) (unknown) (unknown) (no date) (unknown) (unknown) rosuvastatin 1 0 mg tablet 10 mg PO DAILY 12/30/21 [History Confirmed 06/04/22] (units unknown) (unknown) (unknown) (no date) (unknown) (unknown) software. Alth ough every effort is made to edit content, athlete marketing agent errors (units unknown) (unknown) (unknown) (no date) (unknown) (unknown) steroid inject ion. After negative aspiration total of 6cc including 2cc of (units unknown) (unknown) (unknown) (no date) (unknown) (unknown) symptoms furth er.? She has had updated x-ray studies taken on today's visit.? (units unknown) (unknown) (unknown) (no date) (unknown) (unknown) tenderness ove r the greater trochanteric region. (units unknown) (unknown) (unknown) (no date) (unknown) (unknown) the anterior a rticular space.? A 25 gauge needle with 1% lidocaine solution was (units unknown) (unknown) (unknown) (no date) (unknown) (unknown) the injection procedure for complete details. (units unknown) (unknown) (unknown) (no date) (unknown) (unknown) the left knee at this time if she has persistent effusion as well as pain (units unknown) (unknown) (unknown) (no date) (unknown) (unknown) the medial kerry nt line of the knee negative Carlin's mildly positive Marge's (units unknown) (unknown) (unknown) (no date) (unknown) (unknown) the spinous pr ocesses in the cervical and thoracic spine. Several trigger points (units unknown) (unknown) (unknown) (no date) (unknown) (unknown) thiamine HCl ( vitamin B1) 100 mg tablet 100 mg PO DAILY 12/30/21 [History (units unknown) (unknown) (unknown) (no date) (unknown) (unknown) today without guarantees or assurances of complete relief applied. Please see (units unknown) (unknown) (unknown) (no date) (unknown) (unknown) tolerate the p rocedure well noting significant relief prior to dismissal in (units unknown) (unknown) (unknown) (no date) (unknown) (unknown) used for anest hetic. Subsequently then a 25 gauge needle was atraumatically (units unknown) (unknown) (unknown) (no date) (unknown) (unknown) varus and valg us strain tests with mild tenderness. (units unknown) (unknown) (unknown) (no date) (unknown) (unknown) vitamin B comp shelley 1 tab PO DAILY 02/05/20 [History Confirmed 06/04/22] (units unknown) (unknown) (unknown) (no date) (unknown) (unknown) without cough fever fatigue at this time.? She has been fully vaccinated. (units unknown) (unknown) (unknown) (no date) (unknown) (unknown) would like to proceed with ultrasound-guided left corticosteroid injection.? (units unknown) (unknown) Result panel 6 (unknown) (no date) (unknown) (unknown) (no value) (units unknown) (unknown) (unknown) (no date) (unknown) (unknown) (1) CVA, old, aphasi a: (units unknown) (unknown) (unknown) (no date) (unknown) (unknown) (2) Left knee DJD: ( units unknown) (unknown) (unknown) (no date) (unknown) (unknown) (3) Acute CVA (cerebrovascular accident): (units unknown) (unknown) (unknown) (no date) (unknown) (unknown) 05/29/21 [Hist ory Confirmed 06/04/22] (units unknown) (unknown) (unknown) (no date) (unknown) (unknown) 06/04/22 1447 (units unknown) (unknown) (unknown) (no date) (unknown) (unknown) 06/04/22 (units unknown) (unknown) (unknown) (no date) (unknown) (unknown) 109 (units unknown) (unknown) (unknown) (no date) (unknown) (unknown) 12/30/2021 to was very helpful for as well as previous 05/30/2019 to in (units unknown) (unknown) (unknown) (no date) (unknown) (unknown) 02/05/2020 injections.? She does report that this was provided her significant (units unknown) (unknown) (unknown) (no date) (unknown) (unknown) 14:21 (units unknown) (unknown) (unknown) (no date) (unknown) (unknown) 40 mg IM Right knee [id number] 06/15/23 [id number] B[facility] (units unknown) (unknown) (unknown) (no date) (unknown) (unknown) Accompanied by : Self / Same As Patient (units unknown) (unknown) (unknown) (no date) (unknown) (unknown) Administered b y: Yamil Clark DO on 06/04/22 14:46 (units unknown) (unknown) (unknown) (no date) (unknown) (unknown) Age/Sex: 82 / F Date of Service: (units unknown) (unknown) (unknown) (no date) (unknown) (unknown) All other syst ems reviewed and are unremarkable except as noted in HPI. (units unknown) (unknown) (unknown) (no date) (unknown) (unknown) Allergies (units unknown) (unknown) (unknown) (no date) (unknown) (unknown) [place] [address] (units unknown) (unknown) (unknown) (no date) (unknown) (unknown) As oral consen t, we did review the risk to the above-stated procedure including (units unknown) (unknown) (unknown) (no date) (unknown) (unknown) Assessment + Plan (u nits unknown) (unknown) (unknown) (no date) (unknown) (unknown) Attending Dr: Yamil Clark D.O. (units unknown) (unknown) (unknown) (no date) (unknown) (unknown) BMI 26.0 (units unknown) (unknown) (unknown) (no date) (unknown) (unknown) BP 110/60 (units unknown) (unknown) (unknown) (no date) (unknown) (unknown) Blood Pressure Location Lt brachial (units unknown) (unknown) (unknown) (no date) (unknown) (unknown) CVA on 08/03/2021. 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 She is beginning (units unknown) (unknown) (unknown) (no date) (unknown) (unknown) CVA, old, aphasia (u nits unknown) (unknown) (unknown) (no date) (unknown) (unknown) Chief Complaint (uni ts unknown) (unknown) (unknown) (no date) (unknown) (unknown) Chief Complain t: left knee djd (units unknown) (unknown) (unknown) (no date) (unknown) (unknown) Confirmed 06/04/22] (units unknown) (unknown) (unknown) (no date) (unknown) (unknown) Coordination a ppears normal. DTR's 2/4 of biceps, triceps, KJs and AJs. No (units unknown) (unknown) (unknown) (no date) (unknown) (unknown) : 1 Acct:[id number] (units unknown) (unknown) (unknown) (no date) (unknown) (unknown) Denies recent trauma, fever or weight loss of unknown origin, immunocompromise (units unknown) (unknown) (unknown) (no date) (unknown) (unknown) Dept at . (units unknown) (unknown) (unknown) (no date) (unknown) (unknown) Details: (units unknown) (unknown) (unknown) (no date) (unknown) (unknown) Documented By: Yamil Clark D.O. 06/04/22 1409 (units unknown) (unknown) (unknown) (no date) (unknown) (unknown) Dose Route Adm in Location Lot Number Expiration Date NDC (units unknown) (unknown) (unknown) (no date) (unknown) (unknown) Endorses progr essive knee pain, CVA 08/03/2021 residual aphasia (units unknown) (unknown) (unknown) (no date) (unknown) (unknown) Exam Narrative (unit s unknown) (unknown) (unknown) (no date) (unknown) (unknown) Exam Narrative: (uni ts unknown) (unknown) (unknown) (no date) (unknown) (unknown) Exam (units unknown) (unknown) (unknown) (no date) (unknown) (unknown) Family History (units unknown) (unknown) (unknown) (no date) (unknown) (unknown) Gait: Full fernando ght bearing. No assistive device. Mildly Antalgic gait. (units unknown) (unknown) (unknown) (no date) (unknown) (unknown) General: The p atient is in no obvious distress. Normal affect. Fully (units unknown) (unknown) (unknown) (no date) (unknown) (unknown) H/O section (units unknown) (unknown) (unknown) (no date) (unknown) (unknown) H/O removal of cyst (units unknown) (unknown) (unknown) (no date) (unknown) (unknown) HERE FOR LEFT KNEE ( units unknown) (unknown) (unknown) (no date) (unknown) (unknown) HPI (units unknown) (unknown) (unknown) (no date) (unknown) (unknown) Height 4 ft 11 in (u nits unknown) (unknown) (unknown) (no date) (unknown) (unknown) Informed conse nt was obtained today without guarantees or assurances of complete (units unknown) (unknown) (unknown) (no date) (unknown) (unknown) Intake Clinical Staf f (units unknown) (unknown) (unknown) (no date) (unknown) (unknown) Intake Note: (units unknown) (unknown) (unknown) (no date) (unknown) (unknown) Intake perform ed by: Ann-Marie Bernabe (units unknown) (unknown) (unknown) (no date) (unknown) (unknown) Intake (units unknown) (unknown) (unknown) (no date) (unknown) (unknown) Interventions/Proc. (units unknown) (unknown) (unknown) (no date) (unknown) (unknown) Interventions: (unit s unknown) (unknown) (unknown) (no date) (unknown) (unknown) Is patient in pain?: Yes (HERE FOR LEFT KNEE) Pain scale (1-10): 4 (units unknown) (unknown) (unknown) (no date) (unknown) (unknown) Kenalog 40mg T eleanor M17.12 - Unilateral primary osteoarthritis, left knee (units unknown) (unknown) (unknown) (no date) (unknown) (unknown) Kenalog combin ed with 4cc of 0.5% ropivacaine was administered without incident. (units unknown) (unknown) (unknown) (no date) (unknown) (unknown) Kenalog (units unknown) (unknown) (unknown) (no date) (unknown) (unknown) Left Lower Ext remity: Left lower extremity exam shows grossly normal alignment, (units unknown) (unknown) (unknown) (no date) (unknown) (unknown) Left Upper Ext remity: Left upper extremity exam shows grossly normal alignment, (units unknown) (unknown) (unknown) (no date) (unknown) (unknown) Left knee DJD (units unknown) (unknown) (unknown) (no date) (unknown) (unknown) Loc: PA[facility] (units unknown) (unknown) (unknown) (no date) (unknown) (unknown) MSK: System re viewed and no additional complaints, except as documented. (units unknown) (unknown) (unknown) (no date) (unknown) (unknown) Occupational Therapy Assistant (units unknown) (unknown) (unknown) (no date) (unknown) (unknown) Medical Histor y (units unknown) (unknown) (unknown) (no date) (unknown) (unknown) Medications (units unknown) (unknown) (unknown) (no date) (unknown) (unknown) Neuro: System reviewed and no additional complaints, except as documented. (units unknown) (unknown) (unknown) (no date) (unknown) (unknown) Neurologic: CN II-XII grossly intact. Motor 5/5 allover. No fasciculation seen. (units unknown) (unknown) (unknown) (no date) (unknown) (unknown) No Known Drug Allergies Allergy (Verified 06/04/22 14:12) (units unknown) (unknown) (unknown) (no date) (unknown) (unknown) Office Meds (units unknown) (unknown) (unknown) (no date) (unknown) (unknown) Orders (units unknown) (unknown) (unknown) (no date) (unknown) (unknown) Orders: (units unknown) (unknown) (unknown) (no date) (unknown) (unknown) Osteoarthritis type: primary Qualified Code(s): M17.12 - Unilateral (units unknown) (unknown) (unknown) (no date) (unknown) (unknown) Other No perti nent family history (units unknown) (unknown) (unknown) (no date) (unknown) (unknown) Oxygen Deliver y Method room air (units unknown) (unknown) (unknown) (no date) (unknown) (unknown) PFSH (units unknown) (unknown) (unknown) (no date) (unknown) (unknown) Pain Scale (units unknown) (unknown) (unknown) (no date) (unknown) (unknown) Pain Visit (units unknown) (unknown) (unknown) (no date) (unknown) (unknown) Patient: Warren Felipe MR#: [id number] (units unknown) (unknown) (unknown) (no date) (unknown) (unknown) Performing Pro vider: Yamil Clark DO (units unknown) (unknown) (unknown) (no date) (unknown) (unknown) Plan (units unknown) (unknown) (unknown) (no date) (unknown) (unknown) Position Sitting (un its unknown) (unknown) (unknown) (no date) (unknown) (unknown) Pulse 58 L (units unknown) (unknown) (unknown) (no date) (unknown) (unknown) Pulse Oximetry (%) 1 00 (units unknown) (unknown) (unknown) (no date) (unknown) (unknown) Pulse Source Monitor (units unknown) (unknown) (unknown) (no date) (unknown) (unknown) Qualifiers: (units unknown) (unknown) (unknown) (no date) (unknown) (unknown) ROS Narrative (units unknown) (unknown) (unknown) (no date) (unknown) (unknown) ROS Narrative: (unit s unknown) (unknown) (unknown) (no date) (unknown) (unknown) ROS (units unknown) (unknown) (unknown) (no date) (unknown) (unknown) Reason For Visit (un its unknown) (unknown) (unknown) (no date) (unknown) (unknown) Right Lower Ex tremity: Right lower extremity exam shows grossly normal (units unknown) (unknown) (unknown) (no date) (unknown) (unknown) Right Upper Ex tremity: Right upper extremity exam shows grossly normal (units unknown) (unknown) (unknown) (no date) (unknown) (unknown) Warren and her shalondaban Xavier did discuss at length her underlying pathology with (units unknown) (unknown) (unknown) (no date) (unknown) (unknown) Warren present s today for further evaluation treatment of her left knee DJD.? (units unknown) (unknown) (unknown) (no date) (unknown) (unknown) Sensation is g rossly intact to light touch throughout the UEs and LEs. (units unknown) (unknown) (unknown) (no date) (unknown) (unknown) She does repor t that since our last evaluation unfortunately she has undergone a (units unknown) (unknown) (unknown) (no date) (unknown) (unknown) She is well-kn own in secondary to previous treatments for this left knee DJD.? (units unknown) (unknown) (unknown) (no date) (unknown) (unknown) She reports ot herwise feeling well maintain the Covid19 social restrictions (units unknown) (unknown) (unknown) (no date) (unknown) (unknown) She reports th at previous left knee intra-articular injections performed on (units unknown) (unknown) (unknown) (no date) (unknown) (unknown) She was given a post-injection instruction sheet as well as pain like to (units unknown) (unknown) (unknown) (no date) (unknown) (unknown) Signed By: <Electronically signed by Yamil Clark D.O.> (units unknown) (unknown) (unknown) (no date) (unknown) (unknown) Signed (units unknown) (unknown) (unknown) (no date) (unknown) (unknown) Skin: No signi ficant skin lesions are noted. (units unknown) (unknown) (unknown) (no date) (unknown) (unknown) Smoking Status : Never smoker (units unknown) (unknown) (unknown) (no date) (unknown) (unknown) Social History (unit s unknown) (unknown) (unknown) (no date) (unknown) (unknown) Spine: Cervica l spine ROM is reduced in all planes including flexion/extension, (units unknown) (unknown) (unknown) (no date) (unknown) (unknown) Status: Acute (units unknown) (unknown) (unknown) (no date) (unknown) (unknown) Surgical Histo ry (units unknown) (unknown) (unknown) (no date) (unknown) (unknown) Temp 97.4 F L (units unknown) (unknown) (unknown) (no date) (unknown) (unknown) Temp Source Te mporal Artery Scan (units unknown) (unknown) (unknown) (no date) (unknown) (unknown) [facility] (units unknown) (unknown) (unknown) (no date) (unknown) (unknown) The left knee was prepped in the superior anterior fashion with suprapatellar (units unknown) (unknown) (unknown) (no date) (unknown) (unknown) The patient to lerated the procedure without signs or symptoms of complications (units unknown) (unknown) (unknown) (no date) (unknown) (unknown) There is no te nderness over the greater trochanteric region. Tenderness along (units unknown) (unknown) (unknown) (no date) (unknown) (unknown) This note may have been all or partially generated using voice recognition (units unknown) (unknown) (unknown) (no date) (unknown) (unknown) Tobacco + Subs tance Use (units unknown) (unknown) (unknown) (no date) (unknown) (unknown) Tobacco Status (unit s unknown) (unknown) (unknown) (no date) (unknown) (unknown) Visit Reasons: 5M FOLLOW UP, LEFT KNEE (units unknown) (unknown) (unknown) (no date) (unknown) (unknown) Vitals (units unknown) (unknown) (unknown) (no date) (unknown) (unknown) We did review the above-stated procedure at length and verbal consent was (units unknown) (unknown) (unknown) (no date) (unknown) (unknown) Weight 129 lb 2 oz ( units unknown) (unknown) (unknown) (no date) (unknown) (unknown) alcohol intake : current (units unknown) (unknown) (unknown) (no date) (unknown) (unknown) alignment, ran ge of motion, and stability with no swelling, atrophy or effusion. (units unknown) (unknown) (unknown) (no date) (unknown) (unknown) alignment, ran ge of motion, strength and stability with no swelling, atrophy or (units unknown) (unknown) (unknown) (no date) (unknown) (unknown) approach from a lateral perspective.? Ultrasound guidance was used to identify (units unknown) (unknown) (unknown) (no date) (unknown) (unknown) approxiately 1 5cc of the knee serrous fluid off we then proceeded with the (units unknown) (unknown) (unknown) (no date) (unknown) (unknown) aspirin 81 mg tablet,delayed release 81 mg PO DAILY #30 tabs 08/03/21 [Rx (units unknown) (unknown) (unknown) (no date) (unknown) (unknown) associated wit h the DJD.? She did report prominent relief with her 1st (units unknown) (unknown) (unknown) (no date) (unknown) (unknown) ay occur. Occa sional wrong-word or 'sound-alike' substitutions may have (units unknown) (unknown) (unknown) (no date) (unknown) (unknown) but not limite d to bleeding, infection, allergic reaction, nerve injury, stroke, (units unknown) (unknown) (unknown) (no date) (unknown) (unknown) cholecalcifero l (vitamin D3) 125 mcg (5,000 unit) capsule 125 mcg PO DAILY (units unknown) (unknown) (unknown) (no date) (unknown) (unknown) clonus appreci ated. Babinski and Nelda's sign negative bilaterally. (units unknown) (unknown) (unknown) (no date) (unknown) (unknown) discuss Visco supplement injection versus repeat corticosteroid injections.? She (units unknown) (unknown) (unknown) (no date) (unknown) (unknown) effusion. (units unknown) (unknown) (unknown) (no date) (unknown) (unknown) excellent cond ition own prior.? (units unknown) (unknown) (unknown) (no date) (unknown) (unknown) have occurred. If there are any questions, please contact the Medical Records (units unknown) (unknown) (unknown) (no date) (unknown) (unknown) her bilateral knee DJD D worse on left than right.? We did review her a recent (units unknown) (unknown) (unknown) (no date) (unknown) (unknown) household memb ers: spouse (units unknown) (unknown) (unknown) (no date) (unknown) (unknown) injection.? We did discuss injection treatments available to her as and we did (units unknown) (unknown) (unknown) (no date) (unknown) (unknown) injury, stroke , paralysis and and the patient elected to proceed.? (units unknown) (unknown) (unknown) (no date) (unknown) (unknown) intravenous dr ug use, sustained glucocorticoid use, osteoporosis, or a focal (units unknown) (unknown) (unknown) (no date) (unknown) (unknown) introduced and advanced into the intra-articular space.? After pullling (units unknown) (unknown) (unknown) (no date) (unknown) (unknown) knee DJD (units unknown) (unknown) (unknown) (no date) (unknown) (unknown) lateral rotati ons and side-bending. On palpation, there is no tenderness over (units unknown) (unknown) (unknown) (no date) (unknown) (unknown) losartan 100 m g tablet 100 mg PO DAILY 02/05/20 [History Confirmed 06/04/22] (units unknown) (unknown) (unknown) (no date) (unknown) (unknown) magnesium 250 mg tablet 250 mg PO DAILY 12/30/21 [History Confirmed 06/04/22] (units unknown) (unknown) (unknown) (no date) (unknown) (unknown) maintain.? I w ill follow up with her on an as-needed basis for this or her other (units unknown) (unknown) (unknown) (no date) (unknown) (unknown) meclizine 25 m g tablet 25 mg PO .PRN 09/02/21 [History Confirmed 06/04/22] (units unknown) (unknown) (unknown) (no date) (unknown) (unknown) neurological d eficit with progressive or disabling symptoms. (units unknown) (unknown) (unknown) (no date) (unknown) (unknown) noted . Lhermi ttes and Spurling's maneuver are negative. (units unknown) (unknown) (unknown) (no date) (unknown) (unknown) noted signific ant relief prior to dismissal in excellent condition of their own (units unknown) (unknown) (unknown) (no date) (unknown) (unknown) obtained today , As oral consent, we did review the risks of the above stated (units unknown) (unknown) (unknown) (no date) (unknown) (unknown) occupational t herapy next Tuesday.? She would like to pursue repeat injection to (units unknown) (unknown) (unknown) (no date) (unknown) (unknown) occurred due t o the inherent limitations of voice recognition software. Please (units unknown) (unknown) (unknown) (no date) (unknown) (unknown) or immunosuppr essive therapy, previous or current cancer diagnosis, history of (units unknown) (unknown) (unknown) (no date) (unknown) (unknown) oriented. (units unknown) (unknown) (unknown) (no date) (unknown) (unknown) pantoprazole 4 0 mg tablet,delayed release 40 mg PO DAILY 12/30/21 [History (units unknown) (unknown) (unknown) (no date) (unknown) (unknown) paralysis, and and they elected to proceed. Informed consent was obtained (units unknown) (unknown) (unknown) (no date) (unknown) (unknown) power. (units unknown) (unknown) (unknown) (no date) (unknown) (unknown) primary osteoarthritis, left knee (units unknown) (unknown) (unknown) (no date) (unknown) (unknown) procedure incl uding not limited to bleeding, infection, allergic reaction, nerve (units unknown) (unknown) (unknown) (no date) (unknown) (unknown) range of motio n, and stability with no swelling, atrophy or effusion.There is no (units unknown) (unknown) (unknown) (no date) (unknown) (unknown) range of motio n, strength and stability with no swelling, atrophy or effusion. (units unknown) (unknown) (unknown) (no date) (unknown) (unknown) read the note carefully and recognize, using context, where these substitutions (units unknown) (unknown) (unknown) (no date) (unknown) (unknown) relief and she would like to pursue repeat injection at this time to offset her (units unknown) (unknown) (unknown) (no date) (unknown) (unknown) relief applied .? Please see the procedure note for full details. She did (units unknown) (unknown) (unknown) (no date) (unknown) (unknown) rosuvastatin 1 0 mg tablet 10 mg PO DAILY 12/30/21 [History Confirmed 06/04/22] (units unknown) (unknown) (unknown) (no date) (unknown) (unknown) software. Alth ough every effort is made to edit content, athlete marketing agent errors m (units unknown) (unknown) (unknown) (no date) (unknown) (unknown) steroid inject ion. After negative aspiration total of 6cc including 2cc of (units unknown) (unknown) (unknown) (no date) (unknown) (unknown) symptoms furth er.? She has had updated x-ray studies taken on today's visit.? (units unknown) (unknown) (unknown) (no date) (unknown) (unknown) tenderness ove r the greater trochanteric region. (units unknown) (unknown) (unknown) (no date) (unknown) (unknown) the anterior a rticular space.? A 25 gauge needle with 1% lidocaine solution was (units unknown) (unknown) (unknown) (no date) (unknown) (unknown) the injection procedure for complete details. (units unknown) (unknown) (unknown) (no date) (unknown) (unknown) the left knee at this time if she has persistent effusion as well as pain (units unknown) (unknown) (unknown) (no date) (unknown) (unknown) the medial kerry nt line of the knee negative Carlin's mildly positive Marge's (units unknown) (unknown) (unknown) (no date) (unknown) (unknown) the spinous pr ocesses in the cervical and thoracic spine. Several trigger points (units unknown) (unknown) (unknown) (no date) (unknown) (unknown) thiamine HCl ( vitamin B1) 100 mg tablet 100 mg PO DAILY 12/30/21 [History (units unknown) (unknown) (unknown) (no date) (unknown) (unknown) today without guarantees or assurances of complete relief applied. Please see (units unknown) (unknown) (unknown) (no date) (unknown) (unknown) tolerate the p rocedure well noting significant relief prior to dismissal in (units unknown) (unknown) (unknown) (no date) (unknown) (unknown) used for anest hetic. Subsequently then a 25 gauge needle was atraumatically (units unknown) (unknown) (unknown) (no date) (unknown) (unknown) varus and valg us strain tests with mild tenderness. (units unknown) (unknown) (unknown) (no date) (unknown) (unknown) vitamin B comp shelley 1 tab PO DAILY 02/05/20 [History Confirmed 06/04/22] (units unknown) (unknown) (unknown) (no date) (unknown) (unknown) without cough fever fatigue at this time.? She has been fully vaccinated. (units unknown) (unknown) (unknown) (no date) (unknown) (unknown) would like to proceed with ultrasound-guided left corticosteroid injection.? (units unknown) (unknown) Social History date description facility 2022-06-04 00:00 Never smoked tobacco (finding) [facility] Vital Signs date measurement value units 2022-06-04 00:00 BMI 26.0 kg/m2 2022-06-04 00:00 BP_diastolic 60 mmHg 2022-06-04 00:00 BP_systolic 110 mmHg 2022-06-04 00:00 heart_rate 58 /min 2022-06-04 00:00 height_metric 149.86 cm 2022-06-04 00:00 height_standard 59 in 2022-06-04 00:00 o2_saturation 100 % 2022-06-04 00:00 temperature_metric 36.33 C 2022-06-04 00:00 temperature_standard 97.4 F 2022-06-04 00:00 weight_metric 58.57 kg 2022-06-04 00:00 weight_standard 129.12 lb
== END 2022-07-07 12:28 | disposition home or self-care (01) ==
LOC: ED 11:21
DX: M25.462 Effusion, left knee (principal); I10 Essential (primary) hypertension
CPT/HCPCS: 20610; 99283

== ENCOUNTER 2022-07-08 09:15 | Outpatient (CLI) | payer MEDICARE, OTHER ==
--- NOTE | 2022-07-08 15:44 | XRAY Report ---
PROCEDURE: Knee 2 View LT INDICATIONS: ARTHRITIS KNEE LEFT TECHNIQUE: 2 views of the left knee(s) were acquired. COMPARISON: None. FINDINGS: Bones: No fractures or dislocations. No suspicious bony lesions. Definite osteophytes and possibl e narrowing of joint space. This is tricompartmental. Soft tissues: Moderate knee joint effusion. No suspicious soft tissue calcifications or masses. IMPRESSION: Moderate knee joint effusion. Tricompartmental Kellgren-Elliott scale of osteoarthritis: Grade 2 - mild to moderate. Reviewed by: Dima Benson on 07/08/2022 2:43 PM ADRIEL Approved by: Dima Benson on 07/08/2022 2:43 PM ADRIEL Station ID: [id number]
== END 2022-07-08 09:30 | disposition home or self-care (01) ==
LOC: DI.N 09:15
PROVIDERS: ATTEND Family Medicine
DX: M17.12 Unilateral primary osteoarthritis, left knee (principal); M25.462 Effusion, left knee

== ENCOUNTER 2022-09-13 13:34 | Outpatient (CLI) | payer MEDICARE, OTHER ==
--- NOTE | 2022-09-14 10:13 | Mammography Report ---
BILATERAL DIGITAL SCREENING MAMMOGRAM 3D/2D: 09/13/2022 CLINICAL: Routine screening. Comparison is made to exams dated: 05/26/2020 mammogram, 06/14/2018 mammogram, 11/26/2015 mammogram, mammogram, and 01/06/2013 mammogram - [facility]. Both breasts are almost entirely fatty (category a/<25% glandular tissue). There are benign vascular calcifications in both breasts. No significant masses, calcifications, or other findings are seen in either breast. There has been no significant interval change. IMPRESSION: BENIGN There is no mammographic evidence of malignancy. A 1 year screening mammogram is recommended. Based on the Tyrer Cuzick model (a risk assessment model) the patients lifetime risk is 0.5% and her 10 year risk is 0.0%. According to the ACR, ACS, and NCCN guidelines, an annual breast MRI exam dharmesh g with mammogram is recommended if the patients lifetime risk is 20% or greater. This exam was interpreted at Station ID: [id number]. NOTE: For mammograms, a report in lay terms will be sent to the patient. Approximately 15% of breast malignancies will not be visualized mammographically. In the management of a palpable breast mass, a negative mammogram must not discourage biopsy of a clinically suspicious lesion. Electronically Signed By: Swati garcia/manisha:09/13/2022 15:20:52 letter sent: No_Letter ACR BI-RADS Category 2: Benign Finding(s) 3342F PARENCHYMAL PATTERN: (F) - The breast(s) demonstrate(s) diffuse fatty replacement. BI-RADS CATEGORY: (2) - 2 Mammogram [id number] 1 year screening LATERALITY: (B)
== END 2022-09-13 13:35 | disposition home or self-care (01) ==
LOC: DI 13:34
DX: Z12.31 Encounter for screening mammogram for malignant neoplasm of breast (principal)

== ENCOUNTER 2022-09-22 08:00 | Outpatient (CLI) | payer MEDICARE, OTHER ==
[2022-09-22 16:10] LABS: BILIRUBIN,URINE NEGATIVE (NEGATIVE); GLUCOSE, URINE (UA) NEGATIVE (NEGATIVE); KETONES,URINE (UA) NEGATIVE (NEGATIVE); LEUKOCYTE ESTERASE, URINE NEGATIVE (NEGATIVE); NITRITE,URINE NEGATIVE (NEGATIVE); OCCULT BLOOD,URINE NEGATIVE (NEGATIVE); PROTEIN,URINE NEGATIVE (NEGATIVE); UROBILINOGEN,URINE 0.2 (NORMAL) E.U./dL (NORMAL)
[2022-09-22 16:12] LABS: CLARITY,URINE CLEAR (CLEAR)
[2022-09-22 16:29] LABS: BACTERIA,URINE None Seen /HPF (None Seen); RBC,URINE None Seen /HPF (0-5); SQUAMOUS EPITHELIAL CELL,UR FEW Squamous (<= Few); WBC,URINE 0-3 /HPF (0-5)
== END 2022-09-22 23:59 | disposition home or self-care (01) ==
LOC: LAB 08:00
PROVIDERS: ATTEND Urology
DX: N39.41 Urge incontinence (principal)
CPT/HCPCS: 81001; 87086

== ENCOUNTER 2022-11-23 08:34 | Outpatient (CLI) | payer MEDICARE, OTHER ==
[2022-11-23 08:49] LABS: BASOPHILS % (AUTO) 0.8 %; EOSINOPHILS # (AUTO) 0.1 10^3/uL (0.0-0.7); EOSINOPHILS % (AUTO) 2.7 %; HCT - HEMATOCRIT 31.7 % (37.0-47.0); HGB - HEMOGLOBIN 9.9 g/dL (12.0-16.0); LYMPHOCYTES # (AUTO) 1.6 10^3/uL (1.5-3.5); LYMPHOCYTES % (AUTO) 30.7 %; MEAN CORPUSCULAR HEMOGLOBIN 27.3 pg (27.0-31.0); MEAN CORPUSCULAR HGB CONC 31.2 g/dL (32.0-36.0); MEAN CORPUSCULAR VOLUME 87.3 fL (81.0-99.0); MEAN PLATELET VOLUME 10.7 fL (7.9-10.8); MONOCYTES # (AUTO) 0.4 10^3/uL (0.0-1.0); MONOCYTES % (AUTO) 8.4 %; PLT - PLATELET COUNT 166 10^3/uL (130-450); RED BLOOD COUNT 3.63 10^6/uL (4.20-5.40); WHITE BLOOD COUNT 5.3 x10^3/uL (4.8-10.8)
== END 2022-11-23 08:35 | disposition home or self-care (01) ==
LOC: LAB 08:34
PROVIDERS: ATTEND Physician Assistant Medical
DX: D64.9 Anemia, unspecified (principal)
CPT/HCPCS: 36415; 82728; 85025

== ENCOUNTER 2023-01-15 09:27 | Outpatient (CLI) | payer MEDICARE, OTHER ==
--- NOTE | 2023-01-16 17:42 | Ultrasound Report ---
PROCEDURE: Abdomen Complete INDICATIONS: ANEMIA TECHNIQUE: Real-time scanning was performed of the abdominal and retroperitoneal organs, with image documentatio n. COMPARISON: None. FINDINGS: Liver: Liver is normal in size and homogeneous in echotexture. Gallbladder: The gallbladder wall measures 3 mm in diameter. No stones, sludge, pericholecystic fluid or sonographic Burton sign. Biliary ducts: Intrahepatic bile ducts are non-dilated. Extrahepatic bile duct caliber measures 3 m m. Normal is 6-7 mm or less in diameter, or 10 mm or less post-cholecystectomy. Pancreas: Visualized portions of the pancreas are sonographically normal. Spleen: Spleen is normal in size and homogeneous in echotexture. Kidneys: Small in size with bilateral thinned cortices. Right kidney measures 8.5 cm long; left kidne y measures 8.6 cm long. No nephrolithiasis. There is mild pelviectasis of the left kidney. No solid m asses. No complex renal cystic lesions which require follow-up. Aorta: Visualized aorta is normal in caliber at less than 3 cm. Iliacs: Proximal common iliac arteries are normal in caliber at less than 2.5 cm. IVC: Intrahepatic inferior vena cava is patent. Miscellaneous: No free abdominal fluid. IMPRESSION: 1. Bilateral renal atrophy. 2. Mild left pelviectasis. Reviewed by: Swati Nagel MD on 01/16/2023 5:41 PM PST Approved by: Swati Nagel MD on 01/16/2023 5:41 PM PST Station ID: [id number]
== END 2023-01-15 09:28 | disposition home or self-care (01) ==
LOC: DI 09:27
PROVIDERS: ATTEND Internal Medicine
DX: D64.9 Anemia, unspecified (principal); N26.1 Atrophy of kidney (terminal); N13.30 Unspecified hydronephrosis

== ENCOUNTER 2023-02-17 08:00 | Outpatient (CLI) | payer MEDICARE, OTHER | END 2023-02-17 08:01 | disposition home or self-care (01) | LOC: LAB.N 08:00 | PROVIDERS: ATTEND Physician Assistant Medical | DX: U07.1 COVID-19 (principal) ==

== ENCOUNTER 2023-04-21 14:57 | Outpatient (CLI) | payer MEDICARE, OTHER ==
[2023-04-21 15:31] LABS: CREATININE 1.2 mg/dL (0.6-1.3)
== END 2023-04-21 14:58 | disposition home or self-care (01) ==
LOC: LAB 14:57
PROVIDERS: ATTEND Internal Medicine Nephrology
DX: N17.9 Acute kidney failure, unspecified (principal)
CPT/HCPCS: 36415; 82565

== ENCOUNTER 2023-07-17 14:58 | Inpatient (IN) | payer MEDICARE, OTHER ==
--- NOTE | 2023-07-17 15:30 | ED Physician Documentation ---
PD HPI HEENT - Stated complaint Stated Complaint: DIZZY - Chief complaint Chief Complaint: Neuro - History obtained from History obtained from: Patient - History of Present Illness Timing - onset: How many days ago (3-4) Timing - duration: Days (3-4) Timing - details: Abrupt onset, Still present, Waxing and waning (but not resolved with holding still.) Improves: No: Medication (tried Meclzine few times without improvement.) Worsens: Position (worse lying flat or looking upward moslty, but also head side to side.) Associated symptoms: No: Fever, Congestion, Rhinorrhea, Headache, Cough Similar symptoms before: Has not had sx before Recently seen: Not recently seen Review of Systems Constitutional: denies: Fever, Chills Nose: denies: Rhinorrhea / runny nose, Congestion Throat: denies: Sore throat Respiratory: denies: Cough GI: reports: Nausea. 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 - Present Medications Home Medications: Ambulatory Orders Medication Instructions Recorded Confirmed Aspirin [Aspir-Low] 81 mg PO DAILY 12/25/15 04/14/23 Calcium Carbonate/Vitamin D3 1 tab PO DAILY 12/25/15 04/14/23 [Caltrate 600 Plus D3 Tablet] Losartan Potassium [Cozaar] 100 mg PO DAILY 12/25/15 04/14/23 Cholecalciferol (Vitamin D3) 125 mcg PO DAILY 09/18/21 04/14/23 [Vitamin D3] Meclizine HCl [Motion Sickness] 25 mg PO ONCE PRN 09/18/21 04/14/23 Pantoprazole Sodium [Protonix] 40 mg PO DAILY 09/18/21 04/14/23 Rosuvastatin Calcium [Crestor] 10 mg PO DAILY 09/18/21 04/14/23 Thiamine [Vitamin B-1] 100 mg PO DAILY 09/18/21 04/14/23 Magnesium Oxide [Magnesium] 500 mg PO DAILY 01/05/23 04/14/23 Telmisartan 80 mg PO DAILY 01/05/23 04/14/23 - Allergies Allergies/Adverse Reactions: Allergies Allergy/AdvReac Type Severity Reaction Status Date / Time No Known Drug Allergies Allergy Verified 07/17/23 15:19 - Social History Does the pt smoke?: No Smoking Status: Never smoker Does the pt drink ETOH?: No Does the pt have substance abuse?: No - Immunizations Immunizations are current?: Yes - POLST Patient has POLST: No PD ED PE NORMAL - Vitals Vital signs reviewed: Yes - General General: Alert and oriented X 3, No acute distress, Well developed/nourished - HEENT HEENT: Atraumatic, PERRL, EOMI (some nystagmus noted to left and right, more to the left. ) - Neck Neck: Supple, no meningeal sign, No adenopathy - Cardiac Cardiac: RRR, No murmur - Respiratory Respiratory: Clear bilaterally - Abdomen Abdomen: Soft, Non tender - Derm Derm: Warm and dry - Extremities Extremities: No deformity - Psych Psych: Normal mood Results - Vitals Vitals: Vital Signs - 24 hr 07/17/23 07/17/23 07/17/23 15:19 17:25 19:00 Temperature 36.1 C L Heart Rate 54 L 53 L 56 L Respiratory 18 16 16 Rate Blood Pressure 163/56 H 125/54 L 125/99 H O2 Saturation 100 100 100 Oxygen O2 Source Room air - Labs Labs: Laboratory Tests 07/17/23 07/17/23 15:54 15:54 WBC 4.5 L RBC 3.44 L Hgb 9.3 L Hct 30.0 L MCV 87.2 MCH 27.0 MCHC 31.0 L RDW 14.6 Plt Count 169 MPV 11.3 H Neut # (Auto) 2.2 Lymph # (Auto) 1.8 [place] # (Auto) 0.4 Eos # (Auto) 0.1 Baso # (Auto) 0.0 Absolute Nucleated RBC 0.00 Nucleated RBC % 0.0 Sodium 141 Potassium 4.3 Chloride 106 Carbon Dioxide 30 Anion Gap 5.0 L BUN 26 H Creatinine 1.7 H Estimated GFR (MDRD) 29 L Glucose 101 Calcium 10.2 Magnesium 2.1 Total Bilirubin 0.4 AST 20 ALT 11 Alkaline Phosphatase 53 C-Reactive Protein < 0.5 Total Protein 6.5 Albumin 4.0 Globulin 2.5 Albumin/Globulin Ratio 1.6 Lipase 38 TSH 2.51 - Rads (name of study) head CT Relevant Findings:: Prelim report reviewed (no acute intrcranial abnormality.), EMP independent interpretation of test PD Medical Decision Making - ED course Complexity details: reviewed results, re-evaluated patient (Sleepy with less vertigo while lying there. She did not get up and have to go to the bathroom and her partner states she was still quite wobbly and she felt dizzy with it. CT of the head did not show any acute abnormalities but is not sensitive enough for posterior circulation.), considered differential (The patient states she had vertigo onset with just looking upward 3 to 4 days ago and has had been consistent. It does lessen if holding still but not abated. Worse with movement left right or upward of the head.), d/w patient Reviewed Lab Results: CT of the head did not show any acute abnormalities. Her renal function was low enough to not do the angiogram portion. She has had fairly consistent vertigo over the last 4 days and not just positional intermittent. My concern is for central causes and feel more treatment for the symptoms and also evaluating for intracranial abnormalities with an MRI would be appropriate. At this point MRI is unavailable until tomorrow morning. I feel the patient would best be treated with hobs overnight for intractable vertigo and further evaluation of rule out CVA/MS/other causes. Basic chemistry did not show any causative factors. Her sodium was good. Blood sugars not abnormal. Her creatinine is 1.7 and is at baseline. She is anemic hemoglobin 9.9 which is on track with her prior ones. No acute abnormalities. ED course: The patient states she has had brief episodes of vertigo with bending over to pick things up etc in the past. This event, she has had fairly consistent vertigo for the last 3 to 4 days worse with looking sideways either way or upward. She also states she is experienced a feeling of numbness in the right arm and some thumb limb weakness. No trouble speaking. No change in vision. No other focal weaknesses. She tried meclizine [id number] medication without any improvement. She has been nauseated with the dizziness but no vomiting. Also no diarrhea. She denies regular alcohol use. She has not had any recent change in medicines. My concern is that it does sound potentially central. Unable to get an MRI at this time/day. Departure - Departure Disposition: ED Place in Observation Clinical Impression: Acute severe vertigo Condition: Stable Record reviewed to determine appropriate education?: Yes Forms: PCP List
[2023-07-17 15:59] LABS: BASOPHILS % (AUTO) 0.7 %; EOSINOPHILS # (AUTO) 0.1 10^3/uL (0.0-0.7); EOSINOPHILS % (AUTO) 1.8 %; HGB - HEMOGLOBIN 9.3 g/dL (12.0-16.0); LYMPHOCYTES # (AUTO) 1.8 10^3/uL (1.5-3.5); LYMPHOCYTES % (AUTO) 39.5 %; MEAN CORPUSCULAR VOLUME 87.2 fL (81.0-99.0); MEAN PLATELET VOLUME 11.3 fL (7.9-10.8); MONOCYTES # (AUTO) 0.4 10^3/uL (0.0-1.0); MONOCYTES % (AUTO) 9.2 %; NEUTROPHILS # (AUTO) 2.2 10^3/uL (1.5-6.6); NEUTROPHILS % (AUTO) 48.6 %; PLT - PLATELET COUNT 169 10^3/uL (130-450); RED BLOOD COUNT 3.44 10^6/uL (4.20-5.40); RED CELL DISTRIBUTION WIDTH 14.6 % (12.0-15.0); WHITE BLOOD COUNT 4.5 x10^3/uL (4.8-10.8)
[2023-07-17] MEDS: LORazepam 2 MG/ML VIAL IVP STA (16:01)
[2023-07-17] MEDS: SODIUM CHLORIDE 0.9% 500 ML IV STA (16:02)
[2023-07-17 16:14] LABS: ALBUMIN/GLOBULIN RATIO 1.6 (1.0-2.2); ALKALINE PHOSPHATASE 53 IU/L (42-121); ALT ALANINE AMINOTRANSFERASE 11 IU/L (10-60); AST ASPARTATE AMINOTRANSFERASE 20 IU/L (10-42); BILIRUBIN,TOTAL 0.4 mg/dL (0.2-1.0); BUN - BLOOD UREA NITROGEN 26 mg/dL (6-20); CALCIUM 10.2 mg/dL (8.5-10.3); CARBON DIOXIDE - CO2 30 mmol/L (21-32); CHLORIDE 106 mmol/L (101-111); CREATININE 1.7 mg/dL (0.6-1.3); CRP - C-REACTIVE PROTEIN < 0.5 mg/dL (<0.5); GFR - MDRD 29 (>89); GLUCOSE 101 mg/dL (74-104); LIPASE 38 U/L (11-82); MAGNESIUM 2.1 mg/dL (1.7-2.3); POTASSIUM 4.3 mmol/L (3.5-4.5); SODIUM 141 mmol/L (135-145); TOTAL PROTEIN 6.5 g/dL (6.4-8.9)
[2023-07-17 16:29] LABS: THYROID STIMULATING HORMONE 2.51 uIU/mL (0.34-5.60)
--- NOTE | 2023-07-17 17:32 | CT Report ---
PROCEDURE: Head WO INDICATIONS: vertigo and right arm weak 3-4 days TECHNIQUE: Noncontrast 4.5 mm thick angled axial sections acquired from the foramen magnum to the vertex. For r adiation dose reduction, the following was used: automated exposure control, adjustment of mA and/or kV according to patient size. COMPARISON: None. FINDINGS: Image quality: Excellent. CSF spaces: Basal cisterns are patent. No extra-axial fluid collections. Ventricles are normal in size and shape. Brain: No midline shift. No intracranial masses or hemorrhage. Mahoney-white matter interface is norm al. Skull and face: Calvarium and visualized facial bones are intact, without suspicious lesions. Sinuses: Visualized sinuses and mastoids are clear. IMPRESSION: No acute intracranial pathology. Reviewed by: Chuy Gallagher MD on 07/17/2023 4:31 PM AKFAISAL Approved by: Chuy Gallagher MD on 07/17/2023 4:31 PM AKFAISAL Station ID: [id number]
--- NOTE | 2023-07-17 20:17 | ED Physician Documentation ---
ED Addendum - Addendum Addendum: 07/17/23 20:[address] Tolliver around 6:30 PM. He wanted to bring her into observation for an MRI for intractable vertigo. We were waiting till after 7 given it was late in the day hospitalist shift for admission. I put in a telehealth consult right at 7 PM and got a call back at this time from Dr. Mayo and discussed the case and he will see the patient. Disposition: Place in observation Condition: Stable Diagnoses: 1. Intractable vertigo
[2023-07-17] MEDS ORDERED: SODIUM CHLORIDE FLUSH 0.9% 10 ML SYRINGE IVP PRN (22:11)
[2023-07-17] MEDS ORDERED: ONDANSETRON 4 MG/2 ML VIAL IVP PRN (22:11)
[2023-07-17] MEDS ORDERED: ACETAMINOPHEN 325 MG TABLET PO PRN (22:11)
[2023-07-17 22:28] LABS: BASOPHILS % (AUTO) 0.3 %; EOSINOPHILS # (AUTO) 0.1 10^3/uL (0.0-0.7); EOSINOPHILS % (AUTO) 1.8 %; HCT - HEMATOCRIT 27.3 % (37.0-47.0); HGB - HEMOGLOBIN 8.6 g/dL (12.0-16.0); LYMPHOCYTES # (AUTO) 1.4 10^3/uL (1.5-3.5); LYMPHOCYTES % (AUTO) 36.1 %; MEAN CORPUSCULAR HEMOGLOBIN 27.3 pg (27.0-31.0); MEAN CORPUSCULAR HGB CONC 31.5 g/dL (32.0-36.0); MEAN CORPUSCULAR VOLUME 86.7 fL (81.0-99.0); MEAN PLATELET VOLUME 10.7 fL (7.9-10.8); MONOCYTES # (AUTO) 0.3 10^3/uL (0.0-1.0); MONOCYTES % (AUTO) 7.1 %; NEUTROPHILS # (AUTO) 2.2 10^3/uL (1.5-6.6); NEUTROPHILS % (AUTO) 54.4 %; PLT - PLATELET COUNT 151 10^3/uL (130-450); RED BLOOD COUNT 3.15 10^6/uL (4.20-5.40); RED CELL DISTRIBUTION WIDTH 14.5 % (12.0-15.0)
--- NOTE | 2023-07-17 22:39 | HISTORY & PHYSICAL EXAMINATION ---
Chief Complaint - Chief Complaint Chief Complaint: dizziness History of Present Illness - History of Present Illness HPI Comment/Other: pt presents with persistent dizziness / vertigo without any clear etiology. she has had symptoms over last 3-4 days without much relief from meclizine. no chest pain, palpitations, falls, head injuries. partner states she also appears more confused. pt also reports having numbness / tingling sensation in both arms with R > L. no fevers or chills. no abdominal pain. no recent travels reported. no LOC. pt state she woke up a few days ago, and has been feeling dizzy since then. no t/e/d. 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 - POLST Patient has POLST: No Meds/Allgy - Home Medications Home Medications: Ambulatory Orders Medication Instructions Recorded Confirmed Aspirin [Aspir-Low] 81 mg PO DAILY 12/25/15 04/14/23 Calcium Carbonate/Vitamin D3 1 tab PO DAILY 12/25/15 04/14/23 [Caltrate 600 Plus D3 Tablet] Losartan Potassium [Cozaar] 100 mg PO DAILY 12/25/15 04/14/23 Cholecalciferol (Vitamin D3) 125 mcg PO DAILY 09/18/21 04/14/23 [Vitamin D3] Meclizine HCl [Motion Sickness] 25 mg PO ONCE PRN 09/18/21 04/14/23 Pantoprazole Sodium [Protonix] 40 mg PO DAILY 09/18/21 04/14/23 Rosuvastatin Calcium [Crestor] 10 mg PO DAILY 09/18/21 04/14/23 Thiamine [Vitamin B-1] 100 mg PO DAILY 09/18/21 04/14/23 Magnesium Oxide [Magnesium] 500 mg PO DAILY 01/05/23 04/14/23 Telmisartan 80 mg PO DAILY 01/05/23 04/14/23 - Allergies Allergies/Adverse Reactions: Allergies Allergy/AdvReac Type Severity Reaction Status Date / Time No Known Drug Allergies Allergy Verified 07/17/23 15:19 Exam - Vital Signs Vital Signs: Vital Signs x48h Temp Pulse Resp BP Pulse Ox 07/17/23 22:00 50 L 17 145/63 H 100 07/17/23 19:00 56 L 16 125/99 H 100 07/17/23 17:25 53 L 16 125/54 L 100 07/17/23 15:19 36.1 C L 54 L 18 163/56 H 100 - Physical Exam Comments/Other: gen - awake, alert, somewhat confused but able to answer questions. partner at bedside. nad heent - eomi, nc/at heart - per ed charting lungs - per ed charting abd - per ed charting msk - no acute trauma noted; active rom intact neuro - cn 2-12 grossly intact; gag not checked Conclusion/Plan - Lab Results Fish Bones: 07/17/23 22:24 07/17/23 22:24 - Other Other Results/Comments: pt with - - vertigo bppv vs central etiology (cva, tia, etc) mri, 2d echo, carotid us ct head neg for acute pathology ammonia, b12, folate, esr meclizine has not been very helpful - arm tingling / numbness in setting of above concern for cervical radiculopathy check mri c-spine - ams in setting of above able to answer questions check ammonia level mri, 2d echo, carotid doppler - jaspreet possibly contributory to above check renal us, check ct abd/pelvis continue gentle hydration - anemia may be contributory to above check fobt, iron panel f/u labs, imaging, neuro status, electrolytes further orders per clinical course
[2023-07-17 22:43] LABS: CHOL/HDL RATIO 2.9 (<4.4); CHOLESTEROL 138 mg/dL; HDL CHOLESTEROL 47 mg/dL; LDL CHOLESTEROL,CALCULATED 76 mg/dL; LDL/HDL RATIO 1.6 (<4.4); MAGNESIUM 1.8 mg/dL (1.7-2.3); TRIGLYCERIDES 77 mg/dL (48-352); VLDL CHOLESTEROL 15 mg/dL
[2023-07-17 23:01] LABS: ALBUMIN 3.5 g/dL (3.2-5.5); ALBUMIN/GLOBULIN RATIO 1.6 (1.0-2.2); ALKALINE PHOSPHATASE 46 IU/L (42-121); ALT ALANINE AMINOTRANSFERASE 11 IU/L (10-60); AST ASPARTATE AMINOTRANSFERASE 23 IU/L (10-42); BILIRUBIN,TOTAL 0.4 mg/dL (0.2-1.0); BUN - BLOOD UREA NITROGEN 22 mg/dL (6-20); CALCIUM 9.5 mg/dL (8.5-10.3); CARBON DIOXIDE - CO2 25 mmol/L (21-32); CHLORIDE 111 mmol/L (101-111); CREATININE 1.3 mg/dL (0.6-1.3); GFR - MDRD 39 (>89); GLUCOSE 93 mg/dL (74-104); POTASSIUM 4.5 mmol/L (3.5-4.5); SODIUM 140 mmol/L (135-145); TOTAL PROTEIN 5.7 g/dL (6.4-8.9)
[2023-07-17] MEDS: LACTATED RINGERS 1,000 ML IV SCH (23:04)
[2023-07-17 23:12] LABS: THYROID STIMULATING HORMONE 1.97 uIU/mL (0.34-5.60)
[2023-07-17 23:28] LABS: % IRON SATURATION 19 % (20-50); IRON 46 ug/dL (50-212); TOTAL IRON BINDING CAPACITY 244 ug/dL (250-450); TRANSFERRIN 174 mg/dL (203-362)
[2023-07-18] MEDS: SODIUM CHLORIDE FLUSH 0.9% 10 ML SYRINGE IVP SCH (00:08)
--- NOTE | 2023-07-18 00:21 | CT Report ---
PROCEDURE: Abdomen/Pelvis WO INDICATIONS: jaspreet, anemia TECHNIQUE: A CT scan of the abdomen and pelvis was performed without the use of intravenous contrast. Images we re recorded and evaluated at appropriate window settings. Reformats: coronal and sagittal. For radiat ion dose reduction, the following was used: automated exposure control, adjustment of mA and/or kV ac cording to patient size. COMPARISON: CT abdomen/pelvis 06/16/2021. FINDINGS: Image quality: Diagnostic. Lower chest: Unremarkable. Liver: No contour-deforming mass. Gallbladder: No radiopaque stones or wall thickening. Biliary tree: No intrahepatic or extrahepatic dilation, accounting for age. Spleen: No splenomegaly. Pancreas: No pancreatic ductal dilation. Adrenals: No adrenal nodule. Kidneys and ureters: No hydronephrosis. No contour-deforming mass. Stomach, bowel and peritoneum: No gastric or small bowel dilation. No abnormal wall thickening. No pa thologic free fluid. Multiple diverticula are seen in the colon without signs of acute diverticulitis . Normal appendix. Lymph nodes: No central or retroperitoneal adenopathy. Vessels: No infrarenal aortic aneurysm. Reproductive organs: Unremarkable. Bladder: Bladder wall thickness is normal, accounting for underdistention. No calcified bladder stone s. Pelvic lymph nodes: No adenopathy by size criteria. Bones: No aggressive osseous abnormality. Moderate T12 compression fracture appears unchanged. Other: No significant ventral or inguinal hernia. IMPRESSION: 1.No hydronephrosis or obstructing renal stone. No acute abnormality is seen in the abdomen and pelvi s. 2.Colonic diverticulosis without signs of acute diverticulitis. 3.Chronic moderate compression fracture of T12. Reviewed by: Rigo Wu MD on 07/18/2023 12:20 AM PDT Approved by: Rigo Wu MD on 07/18/2023 12:20 AM PDT Station ID: [id number]
[2023-07-18 06:02] LABS: BASOPHILS % (AUTO) 0.2 %; EOSINOPHILS # (AUTO) 0.1 10^3/uL (0.0-0.7); EOSINOPHILS % (AUTO) 1.1 %; HGB - HEMOGLOBIN 8.8 g/dL (12.0-16.0); LYMPHOCYTES # (AUTO) 1.4 10^3/uL (1.5-3.5); LYMPHOCYTES % (AUTO) 25.6 %; MEAN CORPUSCULAR HEMOGLOBIN 27.4 pg (27.0-31.0); MEAN CORPUSCULAR HGB CONC 31.4 g/dL (32.0-36.0); MEAN CORPUSCULAR VOLUME 87.2 fL (81.0-99.0); MEAN PLATELET VOLUME 11.1 fL (7.9-10.8); MONOCYTES # (AUTO) 0.4 10^3/uL (0.0-1.0); MONOCYTES % (AUTO) 6.3 %; NEUTROPHILS # (AUTO) 3.7 10^3/uL (1.5-6.6); NEUTROPHILS % (AUTO) 66.6 %; PLT - PLATELET COUNT 146 10^3/uL (130-450); RED BLOOD COUNT 3.21 10^6/uL (4.20-5.40); RED CELL DISTRIBUTION WIDTH 14.5 % (12.0-15.0); WHITE BLOOD COUNT 5.5 x10^3/uL (4.8-10.8)
[2023-07-18 06:21] LABS: ALBUMIN 3.5 g/dL (3.2-5.5); ALBUMIN/GLOBULIN RATIO 1.7 (1.0-2.2); BILIRUBIN,TOTAL 0.5 mg/dL (0.2-1.0); CALCIUM 9.2 mg/dL (8.5-10.3); CREATININE 1.2 mg/dL (0.6-1.3); MAGNESIUM 1.7 mg/dL (1.7-2.3); TOTAL PROTEIN 5.6 g/dL (6.4-8.9)
[2023-07-18] MEDS: PANTOPRAZOLE 40 MG TABLET PO SCH (06:44)
[2023-07-18] MEDS: THIAMINE 100 MG TABLET PO SCH (08:38)
[2023-07-18] MEDS: CHOLECALCIFEROL 400 UNIT TABLET PO SCH (08:38)
[2023-07-18] MEDS: MULTIVITAMIN TABLET PO SCH (08:38)
[2023-07-18] MEDS: CALCIUM CARB (OYSTER SHELL) 500 MG TABLET PO SCH (08:38)
[2023-07-18] MEDS: ASCORBIC ACID 500 MG TABLET PO SCH (08:38)
[2023-07-18] MEDS: ASPIRIN EC 81 MG TABLET PO SCH (08:38)
[2023-07-18] MEDS: MAGNESIUM OXIDE 400 MG TABLET PO SCH (08:38)
[2023-07-18] MEDS: LOSARTAN 50 MG TABLET PO SCH (08:38)
[2023-07-18] MEDS: CHOLECALCIFEROL 5,000 UNIT CAPSULE PO SCH (08:38)
[2023-07-18] MEDS ORDERED: TELMISARTAN 80 MG PO SCH (09:00)
[2023-07-18] MEDS ORDERED: CALCIUM CARBONATE PO SCH (09:00)
[2023-07-18] MEDS ORDERED: NON FORMULARY MED (Losartan Potassium [Cozaar] 100 MG Tablet) PO SCH (09:00)
[2023-07-18] MEDS ORDERED: VITAMIN D3 PO SCH (09:00)
[2023-07-18] MEDS ORDERED: NON FORMULARY MED (Rosuvastatin Calcium [Crestor] 10 MG Tablet) PO SCH (09:00)
[2023-07-18] MEDS ORDERED: THIAMINE 100 MG TABLET PO SCH (09:00)
[2023-07-18] MEDS: HEPARIN 5,000 UNIT/ML VIAL SUBQ SCH (09:13)
[2023-07-18] MEDS: DEXAMETHASONE 10 MG/ML VIAL IVP ONE (09:14)
[2023-07-18] MEDS: LORazepam 2 MG/ML VIAL IVP ONE (11:04)
[2023-07-18 11:30] LABS: ESTIMATED AVERAGE GLUCOSE 103 mg/dL (70-100); HEMOGLOBIN A1c% 5.2 % (4.27-6.07)
[2023-07-18] MEDS: MECLIZINE 12.5 MG TABLET PO SCH (12:29)
--- NOTE | 2023-07-18 13:15 | PROVIDER PROGRESS NOTE ---
Assessment/Plan - Problem List (1) ROMANA (acute kidney injury) Assessment/Plan: --Resolved. Cancelled renal US. (2) Acute severe vertigo Assessment/Plan: --Admitted due to concern for central vertigo. MRI head is currently pending to rule out CVA. --Started on Meclazine, ativan, and dexamethasone while inpatient. PT/OT consulted for Eply's maneuver. --Ammonia level normal. --Given she is not having any focal deficits, will hold off on performing a carotid US until MRI is resulted. (3) Normocytic anemia Assessment/Plan: --Currently being worked up by hematology as an outpatient. Fe studies slightly low, will obtain Ferritin in the AM. --FOBT pending. Dispo: MRI head pending. Anticipate discharge tomorrow. - Current Meds Current Meds: Current Medications Generic Name Dose Route Start Last Admin Trade Name Freq PRN Reason Stop Dose Admin Ascorbic Acid 500 mg 07/18/23 09:00 07/18/23 08:38 Ascorbic Acid 500 Mg Tablet PO 500 mg DAILY MALKA Administration Aspirin 81 mg 07/18/23 09:00 07/18/23 08:38 Aspirin Ec 81 Mg Tablet PO 81 mg DAILY MALKA Administration Calcium Carbonate/Glycine 500 mg 07/18/23 09:00 07/18/23 08:38 Calcium Carb (Oyster Shell) 500 Mg Tablet PO 500 mg DAILY MALKA Administration Cholecalciferol 5,000 unit 07/18/23 09:00 07/18/23 08:38 Cholecalciferol 5,000 Unit Capsule PO 5,000 unit DAILY MALKA Administration Cholecalciferol 200 unit 07/18/23 09:00 07/18/23 08:38 Cholecalciferol 400 Unit Tablet PO 200 unit DAILY MALKA Administration Heparin Sodium (Porcine) 5,000 unit 07/18/23 09:00 07/18/23 09:13 Heparin 5,000 Unit/Ml Vial SUBQ 5,000 unit BID MALKA Administration Lactated Ringer's 1,000 mls @ 75 mls/hr 07/17/23 23:00 07/17/23 23:04 Lr IV 75 mls/hr .[id number] MALKA Administration Losartan Potassium 100 mg 07/18/23 09:00 07/18/23 08:38 Losartan 50 Mg Tablet PO 100 mg DAILY MALKA Administration Magnesium Oxide 400 mg 07/18/23 09:00 07/18/23 08:38 Magnesium Oxide 400 Mg Tablet PO 400 mg DAILY MALKA Administration Meclizine HCl 25 mg 07/18/23 12:00 07/18/23 12:29 Meclizine 12.5 Mg Tablet PO 25 mg Q6HR MALKA Administration Multivitamins 1 tab 07/18/23 08:00 07/18/23 08:38 Multivitamin Tablet PO 1 tab DAILYWM MALKA Administration Pantoprazole Sodium 40 mg 07/18/23 07:00 07/18/23 06:44 Pantoprazole 40 Mg Tablet PO 40 mg 0700 MALKA Administration Sodium Chloride 10 ml 07/18/23 01:00 07/18/23 08:42 Sodium Chloride Flush 0.9% 10 Ml Syringe IVP Not Given 0100,0900,1700 MALKA Thiamine HCl 100 mg 07/18/23 09:00 07/18/23 08:38 Thiamine 100 Mg Tablet PO 100 mg DAILY MALKA Administration - Lab Result Fish Bone Diagrams: 07/18/23 05:50 07/18/23 05:50 - Additional Planning My Orders: My Active Orders 07/18/23 12:00 Meclizine [Antivert] 25 mg PO Q6HR 07/19/23 05:00 BMP - BASIC METABOLIC PANEL [CHEM] DAILYLAB CBC [CBC - COMP BLD CT W/AUTO DIFF] [HEME] DAILYLAB 07/20/23 05:00 BMP - BASIC METABOLIC PANEL [CHEM] DAILYLAB CBC [CBC - COMP BLD CT W/AUTO DIFF] [HEME] DAILYLAB 07/21/23 05:00 BMP - BASIC METABOLIC PANEL [CHEM] DAILYLAB CBC [CBC - COMP BLD CT W/AUTO DIFF] [HEME] DAILYLAB 07/22/23 05:00 BMP - BASIC METABOLIC PANEL [CHEM] DAILYLAB CBC [CBC - COMP BLD CT W/AUTO DIFF] [HEME] DAILYLAB 07/23/23 05:00 BMP - BASIC METABOLIC PANEL [CHEM] DAILYLAB CBC [CBC - COMP BLD CT W/AUTO DIFF] [HEME] DAILYLAB Subjective - Subjective Patient Reports: Other (Continues to have symptoms of the room spinning. No FND. Has tried oral outpatient medications including meclizine without improvement.) Objective Vital Signs: Vital Signs - 24 hr 06/02/24 06/02/24 06/02/24 15:19 17:25 19:00 Temperature 36.1 C L Heart Rate 54 L 53 L 56 L Heart Rate [ Radial] Heart Rate [ Sitting] Heart Rate [ Standing] Heart Rate [ Supine] Respiratory 18 16 16 Rate Blood Pressure 163/56 H 125/54 L 125/99 H Blood Pressure [Right Brachial artery] Blood Pressure [Sitting] Blood Pressure [Standing] Blood Pressure [Supine] O2 Saturation 100 100 100 07/17/23 07/17/23 07/18/23 22:00 23:40 08:00 Temperature 36.4 C L 36.6 C Heart Rate 50 L Heart Rate [ 61 67 Radial] Heart Rate [ Sitting] Heart Rate [ Standing] Heart Rate [ Supine] Respiratory 17 16 18 Rate Blood Pressure 145/63 H Blood Pressure 115/67 145/65 H [Right Brachial artery] Blood Pressure [Sitting] Blood Pressure [Standing] Blood Pressure [Supine] O2 Saturation 100 99 99 07/18/23 10:28 Temperature Heart Rate Heart Rate [ Radial] Heart Rate [ 67 Sitting] Heart Rate [ 69 Standing] Heart Rate [ 61 Supine] Respiratory Rate Blood Pressure Blood Pressure [Right Brachial artery] Blood Pressure 154/73 H [Sitting] Blood Pressure 155/68 H [Standing] Blood Pressure 145/67 H [Supine] O2 Saturation Oxygen O2 Source Room air I&O (Last 24 Hrs): Intake and Output Totals x24h 07/16/23 07/17/23 07/18/23 23:59 23:59 23:59 Intake Total 500 800 Output Total 100 850 Balance 400 -50 General: Alert, Oriented x3 Neuro: Alert, Non Focal Cardiovascular: Regular rate, Normal S1, Normal S2 Respiratory: Chest non-tender, No respiratory distress, Breath sounds nml Abdomen: Normal bowel sounds, Soft, No tenderness - Results Results: Laboratory Results WBC 5.5 x10^3/uL (4.8-10.8) 07/18/23 05:50 RBC 3.21 10^6/uL (4.20-5.40) L 07/18/23 05:50 Hgb 8.8 g/dL (12.0-16.0) L 07/18/23 05:50 Hct 28.0 % (37.0-47.0) L 07/18/23 05:50 MCV 87.2 fL (81.0-99.0) 07/18/23 05:50 MCH 27.4 pg (27.0-31.0) 07/18/23 05:50 MCHC 31.4 g/dL (32.0-36.0) L 07/18/23 05:50 RDW 14.5 % (12.0-15.0) 07/18/23 05:50 Plt Count 146 10^3/uL (130-450) 07/18/23 05:50 MPV 11.1 fL (7.9-10.8) H 07/18/23 05:50 Neut # (Auto) 3.7 10^3/uL (1.5-6.6) 07/18/23 05:50 Lymph # (Auto) 1.4 10^3/uL (1.5-3.5) L 07/18/23 05:50 Isabella # (Auto) 0.4 10^3/uL (0.0-1.0) 07/18/23 05:50 Eos # (Auto) 0.1 10^3/uL (0.0-0.7) 07/18/23 05:50 Baso # (Auto) 0.0 10^3/uL (0.0-0.1) 07/18/23 05:50 Absolute Nucleated RBC 0.00 x10^3/uL 07/18/23 05:50 Nucleated RBC % 0.0 /100WBC 07/18/23 05:50 ESR 33 mm/Hr (0-30) H 07/17/23 22:24 Sodium 141 mmol/L (135-145) 07/18/23 05:50 Potassium 4.0 mmol/L (3.5-4.5) 07/18/23 05:50 Chloride 110 mmol/L (101-111) 07/18/23 05:50 Carbon Dioxide 27 mmol/L (21-32) 07/18/23 05:50 Anion Gap 4.0 (6-13) L 07/18/23 05:50 BUN 21 mg/dL (6-20) H 07/18/23 05:50 Creatinine 1.2 mg/dL (0.6-1.3) 07/18/23 05:50 Estimated GFR (MDRD) 43 (>89) L 07/18/23 05:50 Glucose 84 mg/dL (74-104) 07/18/23 05:50 Calcium 9.2 mg/dL (8.5-10.3) 07/18/23 05:50 Magnesium 1.7 mg/dL (1.7-2.3) 07/18/23 05:50 Iron 46 ug/dL (50-212) L 07/17/23 22:24 TIBC 244 ug/dL (250-450) L 07/17/23 22:24 % Saturation 19 % (20-50) L 07/17/23 22:24 Transferrin 174 mg/dL (203-362) L 07/17/23 22:24 Total Bilirubin 0.5 mg/dL (0.2-1.0) 07/18/23 05:50 AST 17 IU/L (10-42) 07/18/23 05:50 ALT 10 IU/L (10-60) 07/18/23 05:50 Alkaline Phosphatase 46 IU/L (42-121) 07/18/23 05:50 Ammonia 16.6 umol/L (18-72) L 07/17/23 22:24 C-Reactive Protein < 0.5 mg/dL (<0.5) 07/17/23 15:54 Total Protein 5.6 g/dL (6.4-8.9) L 07/18/23 05:50 Albumin 3.5 g/dL (3.2-5.5) 07/18/23 05:50 Globulin 2.1 g/dL (2.1-4.2) 07/18/23 05:50 Albumin/Globulin Ratio 1.7 (1.0-2.2) 07/18/23 05:50 Triglycerides 77 mg/dL (48-352) 07/17/23 22:24 Cholesterol 138 mg/dL (-200) 07/17/23 22:24 LDL Cholesterol, Calc 76 mg/dL (-129) 07/17/23 22:24 VLDL Cholesterol 15 mg/dL 07/17/23 22:24 HDL Cholesterol 47 mg/dL (60-) L 07/17/23 22:24 LDL/HDL Ratio 1.6 (<4.4) 07/17/23 22:24 Cholesterol/HDL Ratio 2.9 (<4.4) 07/17/23 22:24 Lipase 38 U/L (11-82) 07/17/23 15:54 Vitamin B12 432 pg/mL (180-914) 07/17/23 22:24 Folate > 44.6 ng/mL (5.90 - >24.8) 07/17/23 22:24 TSH 1.97 uIU/mL (0.34-5.60) 07/17/23 22:24 - Procedures Procedures: Procedures EXCISION OF STOMACH, ENDO, DIAGN (09/24/21) EXCISION OF STOMACH, PYLORUS, ENDO, DIAGN (09/24/21) INSPECTION OF LOWER INTESTINAL TRACT, ENDO (12/25/15)
--- NOTE | 2023-07-18 14:13 | MRI Report ---
PROCEDURE: Cervical Spine WO INDICATIONS: radiculopathy TECHNIQUE: Noncontrast sagittal T1 spin echo and T2 fast spin echo, sagittal STIR, foraminal oblique sagittal T2 fast spin echo, and axial gradient echo or T2 fast spin echo through the cervical spine. COMPARISON: None. FINDINGS: Image quality: Excellent. Alignment and Curvature: Straightening of the normal cervical lordosis. Mild grade I anterolisthesis of C7 on T1. Bone Marrow: Marrow demonstrates normal overall signal. Spinal Cord: Visualized spinal cord has normal size and signal. No cerebellar tonsillar herniation. Paraspinous Soft Tissues: No paravertebral masses. Prevertebral soft tissues are normal in thicknes s. C2-C3: Disc desiccation. No central canal or neuroforaminal stenosis. C3-C4: Disc desiccation and mild posterior disc ossify complex. Facet and uncovertebral arthropathy . Mild central canal stenosis. Mild bilateral neuroforaminal stenosis. C4-C5: Disc desiccation and posterior disc ossify complex. Facet and uncovertebral arthropathy. Mild central canal stenosis. Moderate bilateral neuroforaminal stenosis. C5-C6: Disc desiccation and minimal posterior disc osteophyte complex. No central canal stenosis. Fa cet and uncovertebral arthropathy. Mild bilateral neuroforaminal stenosis. C6-C7: Disc desiccation and posterior disc osteophyte complex abutting the ventral cord. Moderate ce ntral canal stenosis. Facet and uncovertebral arthropathy. Severe bilateral neuroforaminal stenosis. C7-T1: No central canal or neuroforaminal stenosis. IMPRESSION: 1.Multilevel degenerative changes of the cervical spine as described above. 2.Moderate central canal stenosis at C6-C7. Mild multilevel central canal stenosis at other levels. 3.Severe bilateral neuroforaminal stenosis at C6-C7. Reviewed by: Ja Sarkar MD on 07/18/2023 2:12 PM PDT Approved by: Ja Sarkar MD on 07/18/2023 2:12 PM PDT Station ID: [id number]
--- NOTE | 2023-07-18 14:19 | MRI Report ---
PROCEDURE: Brain WO INDICATIONS: vertigo TECHNIQUE: Noncontrast axial T1 spin echo, axial T2 fast spin echo, sagittal and axial FLAIR, coronal T2 fast sp in echo, axial gradient echo, axial diffusion and ADC through the brain. COMPARISON: CT head 07/17/2023. MRI brain 05/03/2019 FINDINGS: Image quality: Motion degraded. CSF Spaces: Basal cisterns are patent. No extra-axial fluid collections. Ventricles are normal in size and shape. Brain: No intracranial masses or hemorrhage. There is age-appropriate global volume loss and mild ch ronic microvascular ischemic changes. Small area of encephalomalacia and gliosis within the left arlette ventricular frontal lobe, consistent with prior infarct. Mahoney/white matter interface is normal. Brai nstem appears normal. Diffusion-weighted images demonstrate no acute ischemic insult. No chronic is chemic insults. Normal intravascular flow voids are present. Skull and face: Small focal area of hyperostosis of the inner surface of the right frontal bone is s table in appearance compared to prior MRI 2019. Calvarium has normal marrow signal. Bilateral lens r eplacements. The orbits are otherwise normal in appearance. Sinuses: Sinuses and mastoids are clear. IMPRESSION: 1.No cause for patient's symptoms is identified. 2.No acute intracranial abnormalities. 3.Age-appropriate global volume loss and chronic microvascular ischemic change. Reviewed by: Ja Sarkar MD on 07/18/2023 2:17 PM PDT Approved by: Ja Sarkar MD on 07/18/2023 2:17 PM PDT Station ID: [id number]
--- NOTE | 2023-07-18 16:44 | PHARMACY PROGRESS NOTE ---
- Best Possible Medication History Admit Date and Time: 07/18/23 1016 Processed by: Pharmacy Medications reviewed in ED?: Yes Medication History completed: Yes Patient Interview: Completed As the person ultimately responsible for medication therapy, providers are able to order a medication from an existing home medication list in [facility] via the "Reconcile Routine" prior to Confirmation of that medication by account support analyst. Such practice is discouraged except when the physician, in their clinical judgment, deems that a medical need exists for a medication without regard to previous use.
[2023-07-18 17:37] LABS: INFLUENZA A- RESP PCR PANEL NOT DETECTED; INFLUENZA B - RESP PCR PANEL NOT DETECTED; RSV- RESP PCR PANEL NOT DETECTED; SARS-CoV-2 -RESP PCR PANEL NOT DETECTED
[2023-07-18 19:31] LABS: FECAL OCCULT BLOOD (FIT) NEGATIVE (NEGATIVE)
[2023-07-18] MEDS: ATORVASTATIN 10 MG TABLET PO SCH (21:02)
[2023-07-19 06:03] LABS: BASOPHILS % (AUTO) 0.1 %; HCT - HEMATOCRIT 28.3 % (37.0-47.0); HGB - HEMOGLOBIN 9.3 g/dL (12.0-16.0); LYMPHOCYTES # (AUTO) 0.9 10^3/uL (1.5-3.5); LYMPHOCYTES % (AUTO) 6.6 %; MEAN CORPUSCULAR HEMOGLOBIN 27.4 pg (27.0-31.0); MEAN CORPUSCULAR HGB CONC 32.9 g/dL (32.0-36.0); MEAN CORPUSCULAR VOLUME 83.5 fL (81.0-99.0); MEAN PLATELET VOLUME 11.5 fL (7.9-10.8); MONOCYTES # (AUTO) 0.3 10^3/uL (0.0-1.0); MONOCYTES % (AUTO) 1.8 %; NEUTROPHILS # (AUTO) 12.9 10^3/uL (1.5-6.6); NEUTROPHILS % (AUTO) 90.9 %; PLT - PLATELET COUNT 160 10^3/uL (130-450); RED BLOOD COUNT 3.39 10^6/uL (4.20-5.40); WHITE BLOOD COUNT 14.2 x10^3/uL (4.8-10.8)
[2023-07-19 06:35] LABS: CALCIUM 9.6 mg/dL (8.5-10.3); CREATININE 1.1 mg/dL (0.6-1.3); POTASSIUM 4.2 mmol/L (3.5-4.5)
[2023-07-19 07:43] VITALS: BP 128/55; O2SAT 96
--- NOTE | 2023-07-19 12:13 | Discharge Plan ---
Discharge Plan Problem Reviewed?: Yes Disposition: Home, Self Care Condition: Stable Prescriptions: Rosuvastatin Calcium [Crestor] 20 mg PO DAILY #60 tab Diet: Cardiac Activity Restrictions: Activity as Tolerated Shower Restrictions: No Driving Restrictions: Yes (no driving) Health Concerns: You are currently being seen by Dr. Dao Santos, oncology, to find out why you have severe iron deficiency anemia. You have a previous history of endoscopy to see if you have ulcers mets negative. You have a history of a colonoscopy and that was negative. In the last few weeks you have lost close to 11 pounds. Your appetite is going down. And when you do get hungry and eat, you get full very fast. Now you come into the emergency room because of 3 days of dizziness. It was worse with laying down and position changes. It made you nauseated. you also had arm numbness and tingling that made the emergency room doctor worried about a stroke. You were taking meclizine at home and that did not help. In the emergency room they wanted to make sure you were not having a stroke. Your workup for new stroke has been negative. The blood supply to your brain is normal. The heart pump was evaluated with an echocardiogram and you do have very minimal valve disease. The valves are little bit calcified, and 1 on the right side is leaking. But not severely. And not enough to fix. You do have a small hole called a patent foramen ovale. But it is so small it is not the cause of stroke symptoms. The imaging of your brain shows that you did have an old stroke in the left front side of your brain. But it is now scar tissue and we have no idea how long ago it happened. We monitored your heart rhythm because sometimes an irregular heartbeat can cause strokes. But your heart rhythm was normal entire time you were here. Because of the arm numbness and tingling, we did not x-ray of your neck. You do have narrowing of the canal of your spine. That canal may be pressing down on your nerves and giving you numbness and tingling in your arm. Plan of Treatment: 1. Please continue to see Dr. Santos for your weight loss and your iron deficiency anemia. Let him know that you are in the hospital. 2. Please see your primary care provider in follow-up. We have started you on a blood thinning pill In addition to the blood thinning pill you are already on, aspirin. You will take both of these pills for 21 days. And then stop the 1 we have prescribed you. We have also doubled your cholesterol pill. We did all of this to reduce your risk of possible future strokes. When you see your primary care provider, she can decide if you still need the doubled dose of cholesterol pill. And again, she will stop one of your blood thinning pills in 21 days. 3. Your primary care provider will also check your blood pressure. Your blood pressure needs to be as close to 120/60 as possible to reduce your risk of future strokes. 4. We have ordered outpatient physical therapy and Occupational Therapy to help you with your loss of balance. Care Goals: To remain at home for as long as possible Assessment: patient is alert, oriented to person, place, and situation. is at the bedside Follow-Up Care: Outpatient Rehab - PT, Outpatient Rehab - OT No Smoking: If you smoke, Please STOP! Call for help. Follow-up with: Claire Morrow PA-C [Primary Care Provider] -
--- NOTE | 2023-07-19 12:24 | DISCHARGE SUMMARY ---
"Discharge Summary Admit Date: 07/18/23 Discharge Date: 07/19/23 Discharging Provider: Alivia Mcelroy MD Primary Care Provider: ALEKSANDAR Amador Code Status: Attempt Resuscitation Condition at Discharge: Stable Discharge Disposition: 01 Home, Self Care - DIAGNOSES Discharge Diagnoses with Status of Each Condition: 1. Benign positional vertigo 2. History of stroke 3. Cervical Spinal stenosis 4. Patent foramen ovale 5. Acute kidney injury 6. Iron deficiency anemia 7. Unintentional weight loss - HPI History of Present Illness: pt presents with persistent dizziness / vertigo without any clear etiology. she has had symptoms over last 3-4 days without much relief from meclizine. no chest pain, palpitations, falls, head injuries. partner states she also appears more confused. pt also reports having numbness / tingling sensation in both arms with R > L. no fevers or chills. no abdominal pain. no recent travels reported. no LOC. pt state she woke up a few days ago, and has been feeling dizzy since t hen. no t/e/d. - Past Medical History Cardiovascular: reports: Hypertension, High cholesterol Respiratory: reports: None Neuro: reports: CVA Endocrine/Autoimmune: reports: None GI: reports: None : reports: None HEENT: reports: Chronic vision loss Psych: reports: None Musculoskeletal: reports: Osteoarthritis Derm: reports: None MRSA Hx?: No - Past Surgical History General: reports: Other Ortho: reports: Spine surgery /[employer]: reports: section - CONSULTS | PROCEDURES Procedures: 1. C-spine MRI with multilevel degenerative changes of the cervical spine. Moderate central canal stenosis at C6-C7. Mild multilevel central canal stenosis at other levels. Severe bilateral neuroforaminal stenosis at C6-7. 2. Head CT head CT without acute intracranial pathology. 3. Abdomen pelvis CT has colonic diverticulosis without signs of diverticulitis. Chronic moderate compression fractures of T12. No hydronephrosis or obstructing renal stones. Stomach, bowel and peritoneum are without masses, wall thickening or dilation. Liver, gallbladder, biliary tree, spleen, pancreas, adrenals, kidneys and ureters without masses or thickening. 4. Brain MRI has small area of encephalomalacia and gliosis within the left periventricular frontal lobe consistent with prior infarct. Chronic ischemic changes of the entire brain. Chronic focal small area of hyperostosis of the inner surface of the right frontal bone is stable in appearance compared to MRI in 2020. Bilateral lens replacements. 5. Left ventricle normal with an ejection fraction of 60 to 65%. Normal di astology. Right ventricle size normal and function normal. Atria are normal. Mild aortic valve sclerosis but no stenosis. Trace mitral regurg. Mild tricuspid regurg. Contrast injection of agitated saline was positive for shuntPFO - HOSPITAL COURSE Hospital Course: this document was made in part using voice recognition software. While efforts are made to proofread this document, sound alike and grammatical errors may occur. - ALLERGIES Allergies/Adverse Reactions: Allergies Allergy/AdvReac Type Severity Reaction Status Date / Time No Known Drug Allergies Allergy Verified 07/17/23 15:19 - MEDICATIONS Home Medications: Ambulatory Orders Medication Instructions Recorded Confirmed Aspirin [Aspir-Low] 81 mg PO DAILY 12/25/15 07/18/23 Calcium Carbonate/Vitamin D3 1 tab PO DAILY 12/25/15 07/18/23 [Caltrate 600 Plus D3 Tablet] Meclizine HCl [Motion Sickness] 25 mg PO ONCE PRN 09/18/21 07/18/23 Telmisartan 80 mg PO DAILY 01/05/23 07/18/23 Folic Acid 1 mg PO DAILY 07/18/23 07/18/23 Ascorbic Acid [Vitamin C] 500 mg PO DAILY tab 07/19/23 Rosuvastatin Calcium [Crestor] 20 mg PO DAILY #60 tab 07/19/23 - LABS Result Diagrams: 07/19/23 05:30 07/19/23 05:30"
== END 2023-07-19 13:01 | disposition home or self-care (01) | DRG 149 ==
LOC: ED 14:58 → MS2 22:11 → OBSVTOIN 07-18 10:16
PROVIDERS: ADMIT Student in an Organized Health Care Education/Training Program; ATTEND Student in an Organized Health Care Education/Training Program
DX: R42 Dizziness and giddiness (principal); R11.0 Nausea; R29.898 Other symptoms and signs involving the musculoskeletal system; D64.9 Anemia, unspecified; H81.10 Benign paroxysmal vertigo, unspecified ear; Q21.12 Patent foramen ovale; N17.9 Acute kidney failure, unspecified; M48.02 Spinal stenosis, cervical region; D50.9 Iron deficiency anemia, unspecified; R63.4 Abnormal weight loss; I10 Essential (primary) hypertension; E78.00 Pure hypercholesterolemia, unspecified; I08.2 Rheumatic disorders of both aortic and tricuspid valves; K57.30 Diverticulosis of large intestine without perforation or abscess without bleeding; I69.398 Other sequelae of cerebral infarction; G93.89 Other specified disorders of brain; R20.0 Anesthesia of skin; R20.2 Paresthesia of skin; Z68.23 Body mass index [BMI] 23.0-23.9, adult; Z79.82 Long term (current) use of aspirin; Z79.899 Other long term (current) drug therapy
CPT/HCPCS: 36415; 70450; 70551; 72141; 74176; 80048; 80053; 80061; 82140; 82274; 82306; 82607; 82728; 82746; 83036; 83540; 83690; 83735; 84443; 84466; 85025; 85651; 86140; 87637; 93307; 96374; 96375; 97162; 97166; 99284; 99285; A9270; G0378; J2060; J7120; 83721

== ENCOUNTER 2023-09-14 11:37 | Outpatient (CLI) | payer MEDICARE, OTHER ==
[2023-09-14 11:54] LABS: BASOPHILS % (AUTO) 0.4 %; EOSINOPHILS # (AUTO) 0.1 10^3/uL (0.0-0.7); EOSINOPHILS % (AUTO) 2.2 %; HGB - HEMOGLOBIN 9.5 g/dL (12.0-16.0); LYMPHOCYTES # (AUTO) 1.5 10^3/uL (1.5-3.5); MEAN CORPUSCULAR HEMOGLOBIN 28.3 pg (27.0-31.0); MEAN CORPUSCULAR HGB CONC 31.7 g/dL (32.0-36.0); MEAN CORPUSCULAR VOLUME 89.3 fL (81.0-99.0); MEAN PLATELET VOLUME 10.3 fL (7.9-10.8); MONOCYTES # (AUTO) 0.3 10^3/uL (0.0-1.0); MONOCYTES % (AUTO) 6.2 %; NEUTROPHILS # (AUTO) 2.6 10^3/uL (1.5-6.6); PLT - PLATELET COUNT 184 10^3/uL (130-450); RED BLOOD COUNT 3.36 10^6/uL (4.20-5.40); RED CELL DISTRIBUTION WIDTH 13.6 % (12.0-15.0); WHITE BLOOD COUNT 4.6 x10^3/uL (4.8-10.8)
[2023-09-14 12:07] LABS: ALBUMIN 4.3 g/dL (3.2-5.5); ALBUMIN/GLOBULIN RATIO 1.6 (1.0-2.2); ALKALINE PHOSPHATASE 59 IU/L (42-121); ALT ALANINE AMINOTRANSFERASE 13 IU/L (10-60); AST ASPARTATE AMINOTRANSFERASE 19 IU/L (10-42); BILIRUBIN,TOTAL 0.4 mg/dL (0.2-1.0); BUN - BLOOD UREA NITROGEN 29 mg/dL (6-20); CALCIUM 9.8 mg/dL (8.5-10.3); CARBON DIOXIDE - CO2 27 mmol/L (21-32); CHLORIDE 107 mmol/L (101-111); CREATININE 1.5 mg/dL (0.6-1.3); GFR - MDRD 33 (>89); GLUCOSE 91 mg/dL (74-104); POTASSIUM 4.7 mmol/L (3.5-4.5); SODIUM 137 mmol/L (135-145)
[2023-09-14 12:30] LABS: FERRITIN 67.2 ng/mL (11.0-306.8)
== END 2023-09-14 11:38 | disposition home or self-care (01) ==
LOC: LAB 11:37
PROVIDERS: ATTEND Physician Assistant Medical
DX: I63.9 Cerebral infarction, unspecified (principal); D64.9 Anemia, unspecified
CPT/HCPCS: 36415; 80053; 82728; 82746; 85025

== ENCOUNTER 2023-11-07 14:14 | Outpatient (CLI) | payer MEDICARE, OTHER ==
--- NOTE | 2023-11-08 09:44 | Mammography Report ---
BILATERAL DIGITAL SCREENING MAMMOGRAM 3D/2D: 11/07/2023 CLINICAL: Routine screening. Comparison is made to exams dated: 09/13/2022 mammogram, 05/26/2020 mammogram, 11/26/2015 mammogram, a nd 06/14/2018 mammogram - [facility]. There are scattered areas of fibroglandular density (category b / 25%-50% glandular tissue). There are benign post operative findings in the left breast. No significant masses, calcifications, or other findings are seen in either breast. There has been no significant interval change. IMPRESSION: BENIGN There is no mammographic evidence of malignancy. A 1 year screening mammogram is recommended. Based on the Tyrer Cuzick model (a risk assessment model) the patient's lifetime risk is 0.5% and her 10 year risk is 0.0%. According to the ACR, ACS, and NCCN guidelines, an annual breast MRI exam dharmesh g with mammogram is recommended if the patient's lifetime risk is 20% or greater. This exam was interpreted at Station ID: [id number]. NOTE: For mammograms, a report in lay terms will be sent to the patient. Approximately 15% of breast malignancies will not be visualized mammographically. In the management of a palpable breast mass, a negative mammogram must not discourage biopsy of a clinically suspicious lesion. Electronically Signed By: Vivian Rucker M.D., Ph.D. eb/penrad:11/07/2023 16:08:46 ACR BI-RADS Category 2: Benign PARENCHYMAL PATTERN: (A) - The breast(s) demonstrate(s) scattered fibroglandular densities. BI-RADS CATEGORY: (2) - 2 RECOMMENDATION: (ANNUAL) - Recommend routine annual screening mammography. [id number] 1 year screening LATERALITY: (B)
== END 2023-11-07 14:15 | disposition home or self-care (01) ==
LOC: DI 14:14
DX: Z12.31 Encounter for screening mammogram for malignant neoplasm of breast (principal)

== ENCOUNTER 2024-02-19 10:53 | Inpatient (IN) ==
--- NOTE | 2024-02-19 13:28 | ED Physician Documentation ---
History of Present Illness Stated complaint Stated Complaint: ABD PX Chief complaint Chief Complaint: Abd Pain Additonal information Additional information: She has chronic anemia and chronic kidney disease. History of . She has had 3 days of epigastric pain that is nonradiating and does not change after eating. It is much worse today. It is associate with some dark and tarry stools. Per the last heme-onc note she is supposed to be taking iron s upplementation but says she is not, unclear why. Has had a remote upper endoscopy for her anemia that was negative. Meds/Allgy Home Medications Ambulatory Orders Medication Instructions Recorded Confirmed aspirin 81 mg tablet,delayed 81 mg PO DAILY 12/25/15 12/09/23 release (Aspir-Low) calcium 600 mg (as 1 tab PO DAILY 12/25/15 12/09/23 carbonate)-vitamin D3 20 mcg (800 unit) tablet (Caltrate with Vitamin D3) meclizine 25 mg tablet (Motion 25 mg PO ONCE PRN As Needed Per 09/18/21 12/09/23 Sickness (meclizine)) Provider Orders ascorbic acid (vitamin C) 500 mg 500 mg PO DAILY 07/19/23 12/09/23 tablet (Vitamin C) rosuvastatin 10 mg tablet (Crestor) 20 mg (2 x 10 mg) PO DAILY #60 tabs 07/19/23 12/09/23 folic acid 1 mg tablet 1 mg PO DAILY #30 tabs 01/06/24 telmisartan 80 mg tablet 80 mg PO DAILY #90 tabs 02/06/24 Allergies Allergies Allergy/AdvReac Type Severity Reaction Status Date / Time atorvastatin Allergy Severe Unknown Verified 02/19/24 11:01 tolterodine Allergy Severe Unknown Verified 02/19/24 11:01 [facility] Social History Social History Smoking Status: Never smoker How many cigarettes a day do you smoke? (20 cigarettes=1 Pk): 0 Do you dip or chew tobacco?: No Do you vape?: No Patient requests smoking cessation consult: No Initiate information on smoking cessation: No Marital Status: Living Condition: With spouse/s.o. Support Person: Yes Relationship: Spouse Level: Independent Do you feel safe in your home environment?: Yes Suffered physical, verbal, emotional, or financial abuse?: No History of Abuse: No Service: No POLST Patient has POLST: No Exam Constitutional normal general appearance and no apparent distress HENMT oropharynx normal Cardiovascular normal heart rate noted, regular rhythm noted and no murmur Gastrointestinal abdomen normal to inspection, abdomen soft to palpation and nontender to palpation Results Vitals Vitals: Vital Signs - 24 hr 02/19/24 10:58 02/19/24 13:50 02/19/24 14:32 Temperature 36.6 C Pulse Rate 87 Respiratory Rate 15 Blood Pressure 181/73 H O2 Saturation 100 O2 Source Room air Pain Intensity 10 10 0 02/19/24 14:33 Temperature Pulse Rate 60 Respiratory Rate 18 Blood Pressure 193/79 H O2 Saturation 97 O2 Source Room air Pain Intensity 0 Oxygen O2 Source Room air Labs Labs: Microbiology 02/19/24 13:58 Occult Blood - Final Stool Laboratory Tests 02/19/24 13:29 WBC 7.9 RBC 3.21 L Hgb 8.8 L Hct 28.4 L MCV 88.5 MCH 27.4 MCHC 31.0 L RDW 13.8 Plt Count 172 MPV 11.0 H Neut # (Auto) 5.6 Lymph # (Auto) 1.6 [place] # (Auto) 0.5 Eos # (Auto) 0.2 Baso # (Auto) 0.0 Absolute Nucleated RBC 0.00 Nucleated RBC % 0.0 PT 12.2 INR 1.1 Sodium 139 Potassium 4.0 Chloride 107 Carbon Dioxide 26 Anion Gap 6.0 BUN 30 H Creatinine 1.6 H Estimated GFR (MDRD) 31 L Glucose 94 Calcium 9.5 Total Bilirubin 0.7 AST 14 ALT 7 L Alkaline Phosphatase 51 Total Protein 5.5 L Albumin 3.9 Globulin 1.6 L Albumin/Globulin Ratio 2.4 H Lipase 16 Blood Type A POSITIVE Antibody Screen NEGATIVE PD Medical Decision Making ED course ED course: This is a danny 84-year-old woman who presents with epigastric pain and dark tarry stools. She does have melena from below and is guaiac positive. Hemoglobin is 8.8, her usual was 10. She was administered some morphine and IV Protonix. I spoke with Dr Mehta of gen surg who will consult and subsequently spoke with our hospitalist for admission at 2 PM. The patient and family are counseled as to the diagnosis and need for admission. This document was made in part using voice recognition software, while efforts are made to proofread this document, sound alike an grammatical errors may occur. Discharge Plan Discharge Patient Disposition: ED Place in Observation Condition: Stable Clinical Impression: Acute upper GI bleed Interventions: ED Admission Assessment Last Done: 02/19/24 15:29
[2024-02-19 13:46] LABS: BASOPHILS % (AUTO) 0.4 %; EOSINOPHILS # (AUTO) 0.2 10^3/uL (0.0-0.7); HCT - HEMATOCRIT 28.4 % (37.0-47.0); HGB - HEMOGLOBIN 8.8 g/dL (12.0-16.0); LYMPHOCYTES # (AUTO) 1.6 10^3/uL (1.5-3.5); LYMPHOCYTES % (AUTO) 20.1 %; MEAN CORPUSCULAR HEMOGLOBIN 27.4 pg (27.0-31.0); MEAN CORPUSCULAR VOLUME 88.5 fL (81.0-99.0); MONOCYTES # (AUTO) 0.5 10^3/uL (0.0-1.0); MONOCYTES % (AUTO) 5.8 %; NEUTROPHILS # (AUTO) 5.6 10^3/uL (1.5-6.6); NEUTROPHILS % (AUTO) 71.4 %; PLT - PLATELET COUNT 172 10^3/uL (130-450); RED BLOOD COUNT 3.21 10^6/uL (4.20-5.40); RED CELL DISTRIBUTION WIDTH 13.8 % (12.0-15.0); WHITE BLOOD COUNT 7.9 x10^3/uL (4.8-10.8)
[2024-02-19 13:49] LABS: INR 1.1 (0.8-1.2); PT - PROTHROMBIN TIME 12.2 secs (9.9-12.6)
[2024-02-19] MEDS: PANTOPRAZOLE 40 MG VIAL IVP STA (13:50)
[2024-02-19] MEDS: MORPHINE 10 MG/ML VIAL IVP STA (13:50)
[2024-02-19 13:58] LABS: ALBUMIN 3.9 g/dL (3.2-5.5); ALBUMIN/GLOBULIN RATIO 2.4 (1.0-2.2); BILIRUBIN,TOTAL 0.7 mg/dL (0.2-1.0); CALCIUM 9.5 mg/dL (8.5-10.3); CREATININE 1.6 mg/dL (0.6-1.3); TOTAL PROTEIN 5.5 g/dL (6.4-8.9)
--- NOTE | 2024-02-19 14:38 | HISTORY & PHYSICAL EXAMINATION ---
Chief Complaint Chief Complaint Chief Complaint: Abdominal pain History of Present Illness Admitted From Admitted From:: Home History Obtained From Records Reviewed: Yes History obtained from: Patient and patient's Exam Limitations: Slight aphasia, difficulty word finding (CVA in 2021) History of Present Illness HPI Comment/Other: Patient is a 84-year-old female with a history of chronic anemia, chronic kidney disease (about to start Retacrit treatment per her ) who presents with her for abdominal pain. She describes it as epigastric in nature, sharp and severe. It does not increase or decrease with food intake. She said that it has been going on for the last 3 days. Her states that she has been eating and drinking less because of it. In the emergency room, she was hypertensive with blood pressure of 181/73, heart rate was 87, she was afebrile, saturating 100% on room air. Lab work was significant for hemoglobin of 8.8. Last hemoglobin was done 12/02/2023 and was 10. Additionally, her creatinine was elevated at 1.6; this appears to be her baseline, with estimated GFR of 31. She does see a electric trucker, Dr. Guevara, who is about to start her on some Retacrit therapy. Her AST, ALT, lipase was all within normal limits. Ultrasound of the abdomen remains pending. General surgery was consulted as well for this drop in hemoglobin. Of note, patient does see an oncologist for her normocytic anemia. She now has normal B12 and iron studies, as well as stabilize folate levels and supplementation. She had a bone marrow biopsy done with Dr. Holden, which the states he was told was normal. She had a EGD done in 2021 which showed a polyp, as well as a colonoscopy done in 2015 which was negative for any acute findings. At this time, she endorses some dizziness, which has been ongoing since August. She has had workup for it with the neurologist in the outpatient setting who trialed Lamictal, meclizine. Meds/Allgy Home Medications Ambulatory Orders Medication Instructions Recorded Confirmed aspirin 81 mg tablet,delayed 81 mg PO DAILY 12/25/15 12/09/23 release (Aspir-Low) calcium 600 mg (as 1 tab PO DAILY 12/25/15 12/09/23 carbonate)-vitamin D3 20 mcg (800 unit) tablet (Caltrate with Vitamin D3) meclizine 25 mg tablet (Motion 25 mg PO ONCE PRN As Needed Per 09/18/21 12/09/23 Sickness (meclizine)) Provider Orders ascorbic acid (vitamin C) 500 mg 500 mg PO DAILY 07/19/23 12/09/23 tablet (Vitamin C) rosuvastatin 10 mg tablet (Crestor) 20 mg (2 x 10 mg) PO DAILY #60 tabs 07/19/23 12/09/23 folic acid 1 mg tablet 1 mg PO DAILY #30 tabs 01/06/24 telmisartan 80 mg tablet 80 mg PO DAILY #90 tabs 02/06/24 Allergies Allergies Allergy/AdvReac Type Severity Reaction Status Date / Time atorvastatin Allergy Severe Unknown Verified 02/19/24 11:01 tolterodine Allergy Severe Unknown Verified 02/19/24 11:01 [facility] Social History Social History Smoking Status: Never smoker How many cigarettes a day do you smoke? (20 cigarettes=1 Pk): 0 Do you dip or chew tobacco?: No Do you vape?: No Patient requests smoking cessation consult: No Initiate information on smoking cessation: No Marital Status: Living Condition: With spouse/s.o. Support Person: Yes Relationship: Spouse Level: Independent Do you feel safe in your home environment?: Yes Suffered physical, verbal, emotional, or financial abuse?: No History of Abuse: No Service: No POLST Patient has POLST: No POLST Status: Full Code Review of Systems Constitutional Reports: Weakness, Changes in appetite or eating habits and Poor appetite; Denies: Fatigue, Fever, Chills, Malaise, Diaphoresis or Night sweats Eyes Denies: Pain, Irritation, Amaurosis or Blurry vision Ears, nose, mouth, and throat Reports: Vertigo; Denies: Ear pain, Ear discharge, Hearing loss, Neck pain or Throat swelling Cardiovascular Reports: lightheadedness; Denies: Irregular heart rate, chest pain, palpitations, edema, swelling of feet/ankles or shortness of breath with exertion Respiratory Denies: Shortness of breath, Cough, Sputum production, Change in phlegm color, Wheezing or Apnea Gastrointestinal Reports: Abdominal pain, Poor appetite and other (Dark stools); Denies: Abdominal distention, Nausea, Vomiting, Bile emesis, Jeremy blood emesis, Coffee grounds in vomit or Heartburn Genitourinary Denies: Painful urination, Urinary frequency, Urinary urgency, Nocturia, Urinary incontinence, Decreased urine ouput or Pain during intercourse Musculoskeletal Reports: Extremity pain (chronic knee pain); Denies: Back pain or Neck pain Integumentary/Breast Denies: Rash, Itching, Dryness or Redness Neurological Reports: General weakness, Dizziness and Vertigo; Denies: Headache, Focal weakness or Weakness in extremities Psychiatric Denies: Depression, Anxiety, Mood swings, Panic attacks or Change in sleep pattern Endocrine Denies: Excessive urination, Excessive thirst or Fatigue Hematologic/Lymphatic Reports: Anemia; Denies: Easy bruising, Petechiae or Easy bleeding Allergic/Immunologic Denies: Hives, Throat swelling or Wheezing Prior Level of Functionality: Independent, lives with . Exam Constitutional abnormal general appearance and distress noted HENMT not normocephalic, head/scalp traumatic, hearing grossly abnormal and external ears abnormal Eyes pupils abnormal, EOMs abnormal, conjunctivae abnormal, scleral icterus noted and papilledema noted Neck/C-Spine visual inspection normal and trachea midline Lymph no lymphedema noted Chest inspection of chest normal and palpation of chest normal Respiratory breath sounds equal bilaterally, normal respiratory effort, clear to auscultation bilaterally, no wheezes and no rales Cardiovascular normal heart rate noted, regular rhythm noted, no gallop, no rub and no murmur Gastrointestinal abdomen normal to inspection, abdomen soft to palpation, tender to palpation (moderate) and (epigastric), nondistended and normoactive bowel sounds Genitourinary no CVA tenderness and bladder normal to palpation Back/Pelvis spine normal to inspection and no thoracic spine tenderness Extremities normal to inspection, normal to palpation, no tenderness and full ROM Neurology no movement abnormality noted, no focal motor deficit noted and no sensory deficits noted Psychiatry mental status grossly normal, oriented x3, thought process normal and cooperative Skin skin color normal and no rash Conclusion/Plan Problem List (1) Acute upper GI bleed: Plan: Patient presents with hemoglobin of 8.8. Was checked about 3 months ago, and was 10. Also having dark stools, which were guaiac positive. Of note, she was recently prescribed meloxicam by her pain management doctor for her bilateral knee osteoarthritis. She has been taking one daily without GI prophylaxis. Continue n.p.o. status at this time. Continue Protonix 40 mg twice a day. Will continue to trend H&H every 8 hours. General Surgery consulted in anticipation of possible EGD if hemoglobin drops. (2) Epigastric pain: Plan: Patient with new onset epigastric pain in the last 3 days. Lipase negative, AST/ALT within normal limits. No history of abdominal surgeries. Abdominal CT ordered, pending. (3) Anemia in chronic kidney disease (CKD): Plan: Patient does follow-up with a electric trucker in the outpatient setting, Dr. Guevara. Creatinine around baseline. Plan was to start Retacrit in the outpatient setting, per her . 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 She still has some difficulty with word finding, and is slow to respond. Hold aspirin at this time until hemoglobin stabilizes. Continue statin. Continue telmisartan. Lab Results Lab results reviewed: Yes 02/19/24 13:29 02/19/24 13:29 Diagnostic Imaging Results Diagnostic Imaging Results: positive Final report reviewed EKG Results EKG Interpreted Independently: No Core Measures Anticipated LOS I expect patient to be DC'd or transferred within 96 hours.: Yes DVT/VTE - Prophylaxis VTE/DVT Device ordered at admit?: Yes VTE/DVT Prophylaxis med ordered at admit?: No Not Ordered - Medical Reason: Contraindicated Stroke - Rehab Assessment Rehab services assessment to be ordered?: No Not Ordered - Medical Reason: Not indicated
[2024-02-19] MEDS: hydrALAZINE INJ 20 MG/ML VIAL IVP ONE (15:27)
[2024-02-19] MEDS ORDERED: ONDANSETRON ODT 4 MG TABLET TL PRN (15:40)
[2024-02-19] MEDS: SODIUM CHLORIDE FLUSH 0.9% 10 ML SYRINGE IVP SCH (15:49)
[2024-02-19] MEDS: SODIUM CHLORIDE 0.9% 500 ML IV ONE (15:49)
[2024-02-19] MEDS: ONDANSETRON 4 MG/2 ML VIAL IVP PRN (16:02)
[2024-02-19] MEDS ORDERED: DIATRIZOATE MEGLU/DIATRIZO SOD 30 ML BOTTLE PO ONE (16:08)
--- NOTE | 2024-02-19 16:08 | CONSULTATION NOTE ---
[facility] Social History Social History Smoking Status: Never smoker How many cigarettes a day do you smoke? (20 cigarettes=1 Pk): 0 Do you dip or chew tobacco?: No Do you vape?: No Patient requests smoking cessation consult: No Initiate information on smoking cessation: No Marital Status: Living Condition: With spouse/s.o. Support Person: Yes Relationship: Spouse Level: Independent Do you feel safe in your home environment?: Yes Suffered physical, verbal, emotional, or financial abuse?: No History of Abuse: No Service: No POLST Patient has POLST: No POLST Status: Full Code Meds/Allgy Home Medications Ambulatory Orders Medication Instructions Recorded Confirmed aspirin 81 mg tablet,delayed 81 mg PO DAILY 12/25/15 12/09/23 release (Aspir-Low) calcium 600 mg (as 1 tab PO DAILY 12/25/15 12/09/23 carbonate)-vitamin D3 20 mcg (800 unit) tablet (Caltrate with Vitamin D3) meclizine 25 mg tablet (Motion 25 mg PO ONCE PRN As Needed Per 09/18/21 12/09/23 Sickness (meclizine)) Provider Orders ascorbic acid (vitamin C) 500 mg 500 mg PO DAILY 07/19/23 12/09/23 tablet (Vitamin C) rosuvastatin 10 mg tablet (Crestor) 20 mg (2 x 10 mg) PO DAILY #60 tabs 07/19/23 12/09/23 folic acid 1 mg tablet 1 mg PO DAILY #30 tabs 01/06/24 telmisartan 80 mg tablet 80 mg PO DAILY #90 tabs 02/06/24 Allergies Allergies Allergy/AdvReac Type Severity Reaction Status Date / Time atorvastatin Allergy Severe Unknown Verified 02/19/24 11:01 tolterodine Allergy Severe Unknown Verified 02/19/24 11:01 Results Lab Results 02/19/24 13:29 02/19/24 13:29 Other Lab Results: Lab Results x24hrs 02/19/24 Range/Units 13:29 WBC 7.9 (4.8-10.8) x10^3/uL RBC 3.21 L (4.20-5.40) 10^6/uL Hgb 8.8 L (12.0-16.0) g/dL Hct 28.4 L (37.0-47.0) % MCV 88.5 (81.0-99.0) fL MCH 27.4 (27.0-31.0) pg MCHC 31.0 L (32.0-36.0) g/dL RDW 13.8 (12.0-15.0) % Plt Count 172 (130-450) 10^3/uL MPV 11.0 H (7.9-10.8) fL Neut # (Auto) 5.6 (1.5-6.6) 10^3/uL Lymph # (Auto) 1.6 (1.5-3.5) 10^3/uL [place] # (Auto) 0.5 (0.0-1.0) 10^3/uL Eos # (Auto) 0.2 (0.0-0.7) 10^3/uL Baso # (Auto) 0.0 (0.0-0.1) 10^3/uL Absolute Nucleated RBC 0.00 x10^3/uL Nucleated RBC % 0.0 /100WBC PT 12.2 (9.9-12.6) secs INR 1.1 (0.8-1.2) Sodium 139 (135-145) mmol/L Potassium 4.0 (3.5-4.5) mmol/L Chloride 107 (101-111) mmol/L Carbon Dioxide 26 (21-32) mmol/L Anion Gap 6.0 (6-13) BUN 30 H (6-20) mg/dL Creatinine 1.6 H (0.6-1.3) mg/dL Estimated GFR (MDRD) 31 L (>89) Glucose 94 (74-104) mg/dL Calcium 9.5 (8.5-10.3) mg/dL Total Bilirubin 0.7 (0.2-1.0) mg/dL AST 14 (10-42) IU/L ALT 7 L (10-60) IU/L Alkaline Phosphatase 51 (42-121) IU/L Total Protein 5.5 L (6.4-8.9) g/dL Albumin 3.9 (3.2-5.5) g/dL Globulin 1.6 L (2.1-4.2) g/dL Albumin/Globulin Ratio 2.4 H (1.0-2.2) Lipase 16 (11-82) U/L Blood Type A POSITIVE Antibody Screen NEGATIVE Conclusion and Plan Consultation Note Consultation Note: General Surgery Consultation Note Assessment: 1) Anemia 2) GI blood loss likely due to UGI source related to recent NSAID use. 3) Hypertension Recommendation: 1) PPI, Mylanta 2) Serial H&H 3) NPO after MN 4) Tentative plan for EGD in am 5) S to address HTN 6) Dilaudid can be tried for pain control rather than morphine <><><><><><><><><><> Reason for Consultation Melena, anemia HPI I am asked by Dr. Garcia to provide consultation for Warren Felipe for potential EGD examination. She presented to the ED with melena, anemia, and recent NSAID use. She is was admitted to the S for antacid therapy, possible blood transfusion, serial H&H, management of hypertension, and possible EGD. At the time of my encounter with the patient she was somewhat lethargic from the IV morphine she received in the ED but I did obtain more information from and explained our plans to her who was also present. Past Medical History Stroke 07/2021 Anemia Hypertension Vitamin D deficiency Hyperlipidemia GERD Eczema Osteoporosis Pulmonary HTN on 12/12/2023 CT Chest Past Surgical History Right breast biopsy benign cyst Cosmetic neck surgery Family History - See above Social History - See above Current Medications See "Medication" section Allergies Atorvastin, Tolterodine ROS Pertinent positives Melena, dizziness All other reviewed systems negative Physical Examination Vital Signs: BP 197/79; P 58; RR 16; T 36.5 BMI: 25 GENERAL APPEARANCE: Normal development, normal body habitus, normal grooming PSYCHIATRIC: Awake, drowsy, sitting at bedside with nurse EYES: Pupils equal, round and reactive to light, sclera anicteric EARS, NOSE, MOUTH, THROAT: Hearing normal, Oral mucous membranes moist and without lesions; NECK: No crepitus, lymphadenopathy, or thyromegaly LUNGS: Clear to auscultation without wheezing; No use of accessory muscles to breathe CARDIOVASCULAR: Heart-NSR without murmurs; Palpable carotid arteries - no bruits; ABD: Soft minimal epigastric discomfort, no peritoneal signs LYMPHATIC: Neck, Axillae, Groin no palpable adenopathy EXTREMITIES: No clubbing, cyanosis, infections SKIN: Anicteric; No rashes, lesions, Ulcerations Labs H&H 8.8/28.4; WBC 7.9; Plt 172k; INR 1.1; Na 139; K 4.0; Cr 1.6; Glu 94 Antibiotics: N/A VTEP: None Imaging CT Abd/Pelvis 02/19/2024 - pending All images were personally reviewed by me for this encounter. Tyler Mehta MD, [facility] General Surgery Service [phone]
[2024-02-19] MEDS ORDERED: iohexoL-300 100 ML VIAL ONE ×2 (16:10→20:26)
[2024-02-19] MEDS: SODIUM CHLORIDE 0.9% 1,000 ML IV SCH (16:56)
[2024-02-19] MEDS: PROCHLORPERAZINE 10 MG/2 ML VIAL IVP PRN (18:27)
[2024-02-19] MEDS: MAG HYDROX/AL HYDROX/SIMETH 30 ML UDC PO SCH (20:13)
[2024-02-19] MEDS: PANTOPRAZOLE 40 MG VIAL IVP SCH (20:13)
[2024-02-19] MEDS: iohexoL-300 100 ML VIAL IVP ONE (20:55)
[2024-02-19] MEDS: SODIUM CHLORIDE 0.9% 1,000 ML IV ONE (21:01)
[2024-02-19 21:11] LABS: BILIRUBIN,URINE NEGATIVE (NEGATIVE); GLUCOSE, URINE (UA) NEGATIVE (NEGATIVE); KETONES,URINE (UA) 40 mg/dL (NEGATIVE); LEUKOCYTE ESTERASE, URINE NEGATIVE (NEGATIVE); NITRITE,URINE NEGATIVE (NEGATIVE); OCCULT BLOOD,URINE NEGATIVE (NEGATIVE); PH,URINE 6.5 PH (5.0-7.5); PROTEIN,URINE TRACE mg/dL (NEGATIVE); UROBILINOGEN,URINE 0.2 (NORMAL) E.U./dL (NORMAL)
[2024-02-19 21:12] LABS: CLARITY,URINE CLEAR (CLEAR)
--- NOTE | 2024-02-19 21:16 | CT Report ---
PROCEDURE: CT Abdomen/Pelvis W INDICATIONS: abd pain, nausea and vomiting CONTRAST: 100 ML OMNI 300 TECHNIQUE: After the administration of intravenous contrast, a CT scan of the abdomen and pelvis was performed. Images were recorded and evaluated at appropriate window settings. Reformats: coronal and sagittal. F or radiation dose reduction, the following was used: automated exposure control, adjustment of mA and /or kV according to patient size. COMPARISON: 07/17/2023 and 07/03/2021. FINDINGS: Image quality: Diagnostic. Lower chest: Bibasilar dependent atelectasis is seen. Heart size is enlarged, no pericardial effusion .. Liver: No solid mass. Gallbladder: No radiopaque stones or wall thickening. Biliary tree: No intrahepatic or extrahepatic dilation, accounting for age. Spleen: No splenomegaly. Pancreas: No pancreatic ductal dilation. Adrenals: No adrenal nodule. Kidneys and ureters: No hydronephrosis. Left peripelvic renal cysts are seen. Mild to moderate bilate ral perinephric fat stranding is noted. No hydroureter. No renal cystic lesion which requires follow up. No solid mass. Stomach, bowel and peritoneum: There is no bowel obstruction. Diffuse gastric wall thickening is seen particularly involving mid to distal stomach wall with narrowing of the lumen and wall edema. There is proximal duodenal wall thickening. No other area of small bowel wall thickening. There is also sug gestion of diffuse colonic wall thickening without significant pericolonic fat stranding. Extensive s igmoid diverticulosis is seen. No abscess collection. No free fluid of free air. Lymph nodes: No central or retroperitoneal adenopathy. Vessels: No infrarenal aortic aneurysm. Patent portal vein. PELVIS Reproductive organs: Unremarkable. Bladder: No abnormal wall thickening, accounting for underdistention. Pelvic lymph nodes: No pelvic adenopathy by size criteria. Bones: No aggressive osseous abnormality. Other: No significant ventral or inguinal hernia. IMPRESSION: 1. Diffuse gastric wall thickening and proximal duodenal wall thickening concerning for gastroduodeni tis possibly secondary to peptic ulcer disease. 2. Diffuse colonic wall thickening and edema concerning for colitis. Sigmoid diverticulosis without C T evidence of focal acute diverticulitis. No abscess collection. No free fluid of free air. 3. Nonspecific bilateral perinephric fat stranding, infectious or inflammatory pyelonephritis cannot be excluded. Urological correlation is recommended. No obstructing stones or hydronephrosis. Left per ipelvic renal cysts. Reviewed by: Jose Francisco Polo MD on 02/19/2024 9:15 PM PST Approved by: Jose Francisco Polo MD on 02/19/2024 9:15 PM PST Station ID: [id number]
[2024-02-20 06:16] LABS: HGB - HEMOGLOBIN 7.3 g/dL (12.0-16.0)
--- NOTE | 2024-02-20 06:33 | PROVIDER PROGRESS NOTE ---
Progress Note Progress Note Progress Note: General Surgery Pre-op Note Warren is an 84 year old female with clinical, lab, and image findings consistent with acute peptic ulcer disease. It is my recommendation that Warren undergo diagnostic/possibly therapeutic (clip, band, infection, cautery) EGD. Labs: H&H 7.3/23.0 Consent: Warren has been counseled for the procedure, it's indications, risks, benefits and expected outcome. We specifically discussed risks associated with anesthesia and insertion of the endoscope into the UGI tract which includes bleeding and/or injury to the esophagus which may require surgical intervention. Warren understands, agrees, and consents to the proposed operative strategy and requests that we proceed with the procedure as outlined in our discussion. Tyler Mehta MD, FACS General Surgery Service
[2024-02-20] MEDS ORDERED: ROSUVASTATIN 10 MG PO SCH (09:00)
--- NOTE | 2024-02-20 09:13 | ANESTHESIA PROCEDURE NOTE ---
Pre-Anesthesia VS, & Labs Diagnosis Surgical Diagnosis:: anemia, GI Bleed Procedure Procedure: EGD Vitals Vital Signs: Temp Pulse Resp BP Pulse Ox 37.2 C 74 16 124/58 L 97 02/20/24 07:32 02/20/24 07:32 02/20/24 07:32 02/20/24 07:32 02/20/24 07:32 Height (in): 4 ft 11 in Weight (kg): 55 kg Body Mass Index: 24.5 BMI Classification: Normal NPO NPO: >8 hours Is Patient ?: Not Applicable Lab Results Current Lab Results: Laboratory Tests 02/20/24 06:10: Hgb 7.3 L, Hct 23.0 L 02/19/24 16:01: Blood Type Recheck A POSITIVE 02/19/24 13:29: WBC 7.9, RBC 3.21 L, Hgb 8.8 L, Hct 28.4 L, MCV 88.5, MCH 27.4, MCHC 31.0 L, RDW 13.8, Plt Count 172, MPV 11.0 H, Neut # (Auto) 5.6, Lymph # (Auto) 1.6, [place] # (Auto) 0.5, Eos # (Auto) 0.2, Baso # (Auto) 0.0, Absolute Nucleated RBC 0.00, Nucleated RBC % 0.0, PT 12.2, INR 1.1, Sodium 139, Potassium 4.0, Chloride 107, Carbon Dioxide 26, Anion Gap 6.0, BUN 30 H, Creatinine 1.6 H, Estimated GFR (MDRD) 31 L, Glucose 94, Calcium 9.5, Total Bilirubin 0.7, AST 14, ALT 7 L, Alkaline Phosphatase 51, Total Protein 5.5 L, Albumin 3.9, Globulin 1.6 L, Albumin/Globulin Ratio 2.4 H, Lipase 16, Blood Type A POSITIVE, Antibody Screen NEGATIVE Lab results reviewed: Yes 02/20/24 06:10 02/19/24 13:29 Meds/Allgy Home Medications Ambulatory Orders Medication Instructions Recorded Confirmed aspirin 81 mg tablet,delayed 81 mg PO DAILY 12/25/15 12/09/23 release (Aspir-Low) calcium 600 mg (as 1 tab PO DAILY 12/25/15 12/09/23 carbonate)-vitamin D3 20 mcg (800 unit) tablet (Caltrate with Vitamin D3) meclizine 25 mg tablet (Motion 25 mg PO ONCE PRN As Needed Per 09/18/21 12/09/23 Sickness (meclizine)) Provider Orders ascorbic acid (vitamin C) 500 mg 500 mg PO DAILY 07/19/23 12/09/23 tablet (Vitamin C) rosuvastatin 10 mg tablet (Crestor) 20 mg (2 x 10 mg) PO DAILY #60 tabs 07/19/23 12/09/23 folic acid 1 mg tablet 1 mg PO DAILY #30 tabs 01/06/24 telmisartan 80 mg tablet 80 mg PO DAILY #90 tabs 02/06/24 Allergies Allergies Allergy/AdvReac Type Severity Reaction Status Date / Time atorvastatin Allergy Severe Unknown Verified 02/19/24 11:01 tolterodine Allergy Severe Unknown Verified 02/19/24 11:01 [facility] Medical History Medical History (Updated 02/20/24 @ 09:12 by Katherine Danielson CRNA) Anemia in chronic kidney disease (CKD) History of CVA (cerebrovascular accident) Surgical History Surgical History (Updated 02/20/24 @ 09:12 by Katherine Danielson CRNA) H/O breast surgery H/O section Social History Social History Smoking Status: Never smoker How many cigarettes a day do you smoke? (20 cigarettes=1 Pk): 0 Do you dip or chew tobacco?: No Do you vape?: No Patient requests smoking cessation consult: No Initiate information on smoking cessation: No Marital Status: Living Condition: With spouse/s.o. Support Person: Yes Relationship: Spouse Level: Independent Do you feel safe in your home environment?: Yes Suffered physical, verbal, emotional, or financial abuse?: No History of Abuse: No Service: No POLST Patient has POLST: No POLST Status: Full Code Anesthesia Exam (Expanded) Exam General: Alert, Oriented x3 and Cooperative Dental: Other (temporary bridge, not loose) Mouth Openin Fingerbreadth Neck Mobility: Normal Mallampati classification: IV Thyromental Distance: 4-6 cm Mental/Cognitive Status: Alert/Oriented X3 and Normal for patient Plan Plan Anesthesia Type: Total IV Consent for Procedure(s) Verified and Reviewed: Yes Code Status: Attempt Resuscitation ASA Classification ASA classification: 3-Severe systemic disease Is this case an emergency?: No
[2024-02-20] MEDS ORDERED: LIDOCAINE-MPF 2% 5 ML VIAL ONE (09:18)
[2024-02-20] MEDS ORDERED: PROPOFOL 200 MG/20 ML VIAL IVP ONE (09:18)
[2024-02-20] MEDS ORDERED: THROMBIN (RECOMBINANT) 5,000 UNIT VIAL TOP ONE (09:45)
[2024-02-20] MEDS ORDERED: EPINEPHrine 1 MG/ML AMP ONE (09:45)
--- NOTE | 2024-02-20 10:06 | OPERATIVE REPORT ---
Operative Report General Admit Date: 02/19/24 Procedure Data: Operation Date: 02/20/24 09:00 Proposed Procedures p Esophagogastroduodenoscopy(Not Applicable) - Tyler Mehta MD Pre-Op Diagnosis: ANEMIA, ABD PX Anesthesia Type General Case Staff Anesthesia Provider: Katherine Danielson Case Times Procedure Start: 02/20/24 09:38 Procedure End: 02/20/24 09:58 Time out: 02/20/24 09:38 Other Other Information/Narrative: General Surgery Brief Procedure Note (see "Provation" for details) Preop Diagnosis: Anemia, melena, suspect PUD Postop Diagnosis: Pre-pyloric ulcers (3) without active bleeding Procedure: EGD with Epi/thrombin injection pre-pyloric ulcer; antral biopsies for HP test Recommendation: 1) PPI x 10 weeks 2) Treat for HP if biopsies + 3) Mylanta 30 ml orally Q 4 hours for 6 doses 4) Serial H&H and transfuse as indicated Tyler Mehta MD, FACS General Surgery Service
[2024-02-20] MEDS: FOLIC ACID 1 MG TABLET PO SCH (11:06)
[2024-02-20] MEDS: CALCIUM CARB (OYSTER SHELL) 500 MG TABLET PO SCH (11:06)
[2024-02-20] MEDS: LOSARTAN 50 MG TABLET PO SCH (11:06)
[2024-02-20] MEDS: CHOLECALCIFEROL 400 UNIT TABLET PO SCH (11:06)
[2024-02-20] MEDS: ASCORBIC ACID 500 MG TABLET PO SCH (11:06)
[2024-02-20] MEDS ORDERED: HYDROcod/ACETAM 5/325 MG TABLET PO PRN (11:10)
[2024-02-20] MEDS ORDERED: ACETAMINOPHEN 325 MG TABLET PO PRN (11:10)
[2024-02-20] MEDS: MORPHINE 2 MG/ML CARPUJECT IVP PRN (11:15)
--- NOTE | 2024-02-20 11:21 | PHARMACY PROGRESS NOTE ---
Best Possible Medication History Admit Date and Time: 02/19/24 [id number] Home Medications Medication Instructions Recorded Confirmed Type aspirin 81 mg tablet,delayed 81 mg PO DAILY 12/25/15 02/20/24 History release (Aspir-Low) calcium 600 mg (as 1 tab PO DAILY 12/25/15 02/20/24 History carbonate)-vitamin D3 20 mcg (800 unit) tablet (Caltrate with Vitamin D3) meclizine 25 mg tablet (Motion 25 mg PO ONCE PRN As Needed Per 09/18/21 02/20/24 History Sickness (meclizine)) Provider Orders ascorbic acid (vitamin C) 500 mg 500 mg PO DAILY 07/19/23 02/20/24 Rx tablet (Vitamin C) folic acid 1 mg tablet 1 mg PO DAILY #30 tabs 01/06/24 02/20/24 Rx telmisartan 80 mg tablet 80 mg PO DAILY #90 tabs 02/06/24 02/20/24 Rx cholecalciferol (vitamin D3) 10 10 mcg PO DAILY 02/20/24 02/20/24 History mcg (400 unit) tablet (Delta D3) magnesium 250 mg tablet 250 mg PO DAILY 02/20/24 02/20/24 History meloxicam 15 mg tablet 15 mg PO DAILY 02/20/24 02/20/24 History rosuvastatin 20 mg tablet 20 mg PO HS 02/20/24 02/20/24 History thiamine HCl (vitamin B1) 100 mg 100 mg PO DAILY 02/20/24 02/20/24 History tablet Processed by: Pharmacy (Medication Reconciliation completed by Poultry Service TechnicianJae) Medications reviewed in ED?: No Medication History completed: Yes Patient Interview: Pt unable to participate Secondary Source(s): Spouse/Significant other and Insurance records [facility] Statement: As the person ultimately responsible for medication therapy, providers are able to order a medication from an existing home medication list in [facility] via the "Reconcile Routine" prior to Confirmation of that medication by system support developer. Such practice is discouraged except when the physician, in their clinical j udgment, deems that a medical need exists for a medication without regard to previous use.
--- NOTE | 2024-02-20 12:35 | ANESTHESIA POST OP EVALUATION ---
Anesthesia Post Eval Post Anesthesia Eval Vitals: Last Vital Signs Temp 37 C 02/20/24 10:58 Pulse 75 02/20/24 10:58 Resp 16 02/20/24 10:58 BP 155/69 H 02/20/24 10:58 Pulse Ox 96 02/20/24 10:58 CV Function Including HR & BP: Stable Pain Control: Satisfactory Nausea & Vomiting: Negative Mental Status: Baseline Respiratory Status: Airway Patent Hydration Status: Satisfactory Anesthesia Complications: None
[2024-02-20] MEDS: MAG HYDROX/AL HYDROX/SIMETH 30 ML UDC PO SCH (13:19)
--- NOTE | 2024-02-20 14:42 | PROVIDER PROGRESS NOTE ---
Subjective Subjective Subjective: Patient still has some abdominal pain. She states it was relieved with the morphine, as well as the Protonix. Her appetite is poor right now, but she is willing to try eating some clear liquids. She has no lightheadedness or dizziness. She has had no more dark stools. Current Medications Current Medications Current Medications: Current Medications Generic Name Dose Route Start Last Admin Trade Name Freq PRN Reason Stop Dose Admin Acetaminophen 650 mg 02/20/24 11:10 Acetaminophen 325 Mg Tablet PO Q4HR PRN Pain 1 to 4, or Fever Hydrocodone Bitart/Acetaminophen 1 tab 02/20/24 11:10 Hydrocod/Acetam 5/325 Mg Tablet PO Q4HR PRN Pain 5 to 7 Al Hydroxide/Mg Hydroxide 30 ml 02/20/24 13:00 02/20/24 13:19 Mag Hydrox/Al Hydrox/Simeth 30 Ml Udc PO 02/21/24 09:01 30 ml Q4HR MALKA Administration Ascorbic Acid 500 mg 02/20/24 09:00 02/20/24 11:06 Ascorbic Acid 500 Mg Tablet PO 500 mg DAILY MALKA Administration Calcium Carbonate/Glycine 500 mg 02/20/24 09:00 02/20/24 11:06 Calcium Carb (Oyster Shell) 500 Mg Tablet PO 500 mg DAILY MALKA Administration Cholecalciferol 400 unit 02/20/24 09:00 02/20/24 11:06 Cholecalciferol 400 Unit Tablet PO 400 unit DAILY MALKA Administration Folic Acid 1 mg 02/20/24 09:00 02/20/24 11:06 Folic Acid 1 Mg Tablet PO 1 mg DAILY MALKA Administration Sodium Chloride 1,000 mls @ 75 mls/hr 02/19/24 15:01 02/20/24 14:08 Normal Saline 0.9% IV 75 mls/hr .[id number] MALKA Infusion Losartan Potassium 100 mg 02/20/24 09:00 02/20/24 11:06 Losartan 50 Mg Tablet PO 100 mg DAILY MALKA Administration Morphine Sulfate 2 mg 02/20/24 11:10 02/20/24 11:15 Morphine 2 Mg/Ml Carpuject IVP 2 mg Q4HR PRN Administration Pain 8 to 10 Ondansetron HCl 4 mg 02/19/24 15:40 02/19/24 16:02 Ondansetron 4 Mg/2 Ml Vial IVP 4 mg Q4HR PRN Administration Nausea / Vomiting Ondansetron HCl 4 mg 02/19/24 15:40 Ondansetron Odt 4 Mg Tablet TL Q4HR PRN Nausea / Vomiting Pantoprazole Sodium 40 mg 02/20/24 21:00 Pantoprazole 40 Mg Vial IVP BID [facility] Rosuvastatin [ 2 each 02/20/24 09:00 Crestor] 10 Mg PO Tablet DAILY [facility] Prochlorperazine Edisylate 10 mg 02/19/24 17:01 02/19/24 18:27 Prochlorperazine 10 Mg/2 Ml Vial IVP 10 mg Q6HR PRN Administration Nausea / Vomiting Sodium Chloride 10 ml 02/19/24 15:01 Sodium Chloride Flush 0.9% 10 Ml Syringe IVP PRN PRN NEEDED PER PROVIDER ORDERS Sodium Chloride 10 ml 02/19/24 17:00 02/20/24 00:18 Sodium Chloride Flush 0.9% 10 Ml Syringe IVP Not Given 0100,0900,1700 [facility] Objective Vital Signs/Intake & Output Reviewed Vital Signs: Yes Vital Signs: Vital Signs x48h Temp Pulse Resp BP BP Pulse Ox 02/20/24 14:07 98.6 F 69 16 146/70 H 97 02/20/24 10:58 98.6 F 75 16 155/69 H 96 02/20/24 10:05 98.6 F 88 18 169/76 H 98 02/20/24 07:32 99.0 F 74 16 124/58 L 97 Intake & Output: Intake & Output 02/17/24 02/18/24 02/19/24 02/20/24 23:59 23:59 23:59 23:59 Intake Total 1858 1047 / 1047 Balance 1858 1047 / 1047 Weight (kg) 55.338 kg 55 kg Objective General Appearance: positive No acute distress and Alert Eyes Bilateral: positive Normal inspection, PERRL and EOMI ENT: positive ENT inspection nml, Pharynx nml and No signs of dehydration Neck: positive Nml inspection, Thyroid nml and No JVD Respiratory: positive Chest non-tender, No respiratory distress and Breath sounds nml; negative Wheezes, Rales or Rhonchi Cardiovascular: positive Regular rate & rhythm, No murmur and No gallop Abdomen: positive Tenderness (epigastric region); negative Guarding, Hepatomegaly, Splenomegaly or Mass Back: positive Nml inspection; negative CVA tenderness (R) or CVA tenderness (L) Skin: positive Color nml, No rash, Warm and Dry Extremities: positive Non-tender, Full ROM and Nml appearance Neurologic/Psychiatric: positive Oriented x3, Motor nml, Mood/affect nml, Weakness and Other (mild aphasia with some difficulty word finding ) Lab Results 02/20/24 06:10 02/19/24 13:29 Other Labs: Lab Results x24hrs 02/20/24 02/19/24 02/19/24 Range/Units 06:10 20:03 16:01 Hgb 7.3 L (12.0-16.0) g/dL Hct 23.0 L (37.0-47.0) % Urine Color LIGHT YELLOW Urine Clarity CLEAR (CLEAR) Urine pH 6.5 (5.0-7.5) PH Ur Specific [place] 1.020 (1.002-1.030) Urine Protein TRACE (NEGATIVE) mg/dL Urine Glucose (UA) NEGATIVE (NEGATIVE) mg/dL Urine Ketones 40 H (NEGATIVE) mg/dL Urine Occult Blood NEGATIVE (NEGATIVE) Urine Nitrite NEGATIVE (NEGATIVE) Urine Bilirubin NEGATIVE (NEGATIVE) Urine Urobilinogen 0.2 (NORMAL) (NORMAL) E.U./dL Ur Leukocyte Esterase NEGATIVE (NEGATIVE) Ur Microscopic Review NOT INDICATED Urine Culture Comments NOT INDICATED Blood Type Blood Type Recheck A POSITIVE Antibody Screen Crossmatch IS Only See Detail 02/19/24 Range/Units 13:29 Hgb (12.0-16.0) g/dL Hct (37.0-47.0) % Urine Color Urine Clarity (CLEAR) Urine pH (5.0-7.5) PH Ur Specific [place] (1.002-1.030) Urine Protein (NEGATIVE) mg/dL Urine Glucose (UA) (NEGATIVE) mg/dL Urine Ketones (NEGATIVE) mg/dL Urine Occult Blood (NEGATIVE) Urine Nitrite (NEGATIVE) Urine Bilirubin (NEGATIVE) Urine Urobilinogen (NORMAL) E.U./dL Ur Leukocyte Esterase (NEGATIVE) Ur Microscopic Review Urine Culture Comments Blood Type A POSITIVE Blood Type Recheck Antibody Screen NEGATIVE Crossmatch IS Only See Detail Diagnostic Imaging Diagnostic Imaging Results: positive Final report reviewed Assessment/Plan Problem List (1) Acute upper GI bleed: Impression: Patient presented with hemoglobin of 8.8; last checked 3 months ago, and was around 10. Was also having dark stools at home for a few days, and was guaiac positive. Recent history of daily meloxicam use without GI prophylaxis. Hemoglobin dropped further this morning to 7.3. She did receive 1 unit packed RBCs. Surgery is followingEGD was done and it showed prepyloric area ulcers x3, that were not actively bleeding. Surgery recommends PPI for 10 weeks, follow-up on biopsies for H. pylori. Will trend H&H every 8 hours. If H&H stable by tomorrow morning, restart aspirin. Patient has a history of CVA. (2) Epigastric pain: Impression: Improving. CT abdomen does show diffuse gastric wall thickening, proximal duodenal wall thickening, diffuse colonic wall thickening, diverticulosis without diverticulitis. The CT also showed perinephric stranding. Patient has no urinary symptoms. UA is negative. Continue to monitor off antibiotics. (3) Anemia in chronic kidney disease (CKD): Impression: Patient does follow-up with a kelly machine operator in the outpatient setting, Dr. Guevara. Creatinine around baseline. Plan was to start Retacrit in the outpatient setting, per her . 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 She still has some difficulty with word finding, and is slow to respond. Hold aspirin at this time until hemoglobin stabilizes. Continue statin. Continue telmisartan.
[2024-02-20 15:12] LABS: HCT - HEMATOCRIT 28.8 % (37.0-47.0); HGB - HEMOGLOBIN 9.2 g/dL (12.0-16.0)
[2024-02-20] MEDS: PANTOPRAZOLE 40 MG VIAL IVP SCH (20:14)
[2024-02-20] MEDS: SODIUM CHLORIDE FLUSH 0.9% 10 ML SYRINGE IVP PRN (20:14)
[2024-02-20] MEDS ORDERED: NON FORMULARY MED (Rosuvastatin 20 mg tablet) PO SCH (21:00)
[2024-02-20 22:01] LABS: HCT - HEMATOCRIT 29.7 % (37.0-47.0); HGB - HEMOGLOBIN 9.3 g/dL (12.0-16.0)
[2024-02-21 06:21] LABS: HCT - HEMATOCRIT 29.2 % (37.0-47.0); HGB - HEMOGLOBIN 9.5 g/dL (12.0-16.0); MEAN CORPUSCULAR HEMOGLOBIN 28.8 pg (27.0-31.0); MEAN CORPUSCULAR HGB CONC 32.5 g/dL (32.0-36.0); MEAN CORPUSCULAR VOLUME 88.5 fL (81.0-99.0); MEAN PLATELET VOLUME 11.7 fL (7.9-10.8); RED BLOOD COUNT 3.3 10^6/uL (4.20-5.40); RED CELL DISTRIBUTION WIDTH 14.3 % (12.0-15.0); WHITE BLOOD COUNT 5.9 x10^3/uL (4.8-10.8)
[2024-02-21 06:35] LABS: CALCIUM 7.8 mg/dL (8.5-10.3); CREATININE 1.2 mg/dL (0.6-1.3); MAGNESIUM 2.3 mg/dL (1.7-2.3); POTASSIUM 3.6 mmol/L (3.5-4.5)
[2024-02-21 07:44] VITALS: TEMP 97.7; O2SAT 97
[2024-02-21] MEDS: MAGNESIUM OXIDE 400 MG TABLET PO SCH (07:48)
--- NOTE | 2024-02-21 08:25 | PROVIDER PROGRESS NOTE ---
Progress Note Progress Note Progress Note: General Surgery Progress Note Patient tolerating a diet and with improvement in abdominal discomfort. H&H stable after endoscopy. Should remain on PPI for 10 weeks and avoid NSAID's if possible. HP test results pending. The General Surgery Service will sign off today. Please do not hesitate to contact us if you have further questions or concerns or if you wish to have us continue to follow this patient with you. Tyler Mehta MD, FACS General Surgery Service
[2024-02-21] MEDS ORDERED: ASPIRIN EC 81 MG TABLET PO SCH (09:00)
[2024-02-21] MEDS ORDERED: CHOLECALCIFEROL 400 UNIT TABLET PO SCH (09:00)
[2024-02-21] MEDS: LOSARTAN 50 MG TABLET PO SCH (09:22)
[2024-02-21] MEDS: CHOLECALCIFEROL 400 UNIT TABLET PO SCH (09:22)
[2024-02-21] MEDS: ASCORBIC ACID 500 MG TABLET PO SCH (09:22)
[2024-02-21] MEDS: CALCIUM CARB (OYSTER SHELL) 500 MG TABLET PO SCH (09:22)
[2024-02-21] MEDS: FOLIC ACID 1 MG TABLET PO SCH (09:22)
[2024-02-21 09:55] VITALS: BP 148/62
--- NOTE | 2024-02-21 11:43 | Discharge Summary ---
Discharge Summary Admit Date: 02/19/24 Discharge Date: 02/21/24 Discharging Provider: Alivia Mcelroy MD Primary Care Provider: ALEKSANDAR Amador Code Status: Attempt Resuscitation DIAGNOSES Discharge Diagnoses with Status of Each Condition: 1. Upper GI bleed 2. Nonsteroidal induced gastritis 3. Osteoarthritis pain 4. History of stroke on aspirin 5. Epigastric abdominal pain due to #2 6. Chronic kidney disease stage III 7. Acute blood loss anemia HPI History of Present Illness: Patient is a 84-year-old female with a history of chronic anemia, chronic kidney disease (about to start Retacrit treatment per her ) who presents with her for abdominal pain. She describes it as epigastric in nature, sharp and severe. It does not increase or decrease with food intake. She said that it has been going on for the last 3 days. Her states that she has been eating and drinking less because of it. In the emergency room, she was hypertensive with blood pressure of 181/73, heart rate was 87, she was afebrile, saturating 100% on room air. Lab work was significant for hemoglobin of 8.8. Last hemoglobin was done 12/02/2023 and was 10. Additionally, her creatinine was elevated at 1.6; this appears to be her baseline, with estimated GFR of 31. She does see a slack cooper, Dr. Guevara, who is about to start her on some Retacrit therapy. Her AST, ALT, lipase was all within normal limits. Ultrasound of the abdomen remains pending. General surgery was consulted as well for this drop in hemoglobin. Of note, patient does see an oncologist for her normocytic anemia. She now has normal B12 and iron studies, as well as stabilize folate levels and supplementation. She had a bone marrow biopsy done with Dr. Holden, which the states he was told was normal. She had a EGD done in 2021 which showed a polyp, as well as a colonoscopy done in 2015 which was negative for any acute findings. At this time, she endorses some dizziness, which has been ongoing since August. She has had workup for it with the neurologist in the outpatient setting who trialed Lamictal, meclizine. ALLERGIES Allergies Allergy/AdvReac Type Severity Reaction Status Date / Time atorvastatin Allergy Severe Unknown Verified 02/19/24 11:01 tolterodine Allergy Severe Unknown Verified 02/19/24 11:01 MEDICATIONS Ambulatory Orders Medication Instructions Recorded Confirmed calcium 600 mg (as 1 tab PO DAILY 12/25/15 02/20/24 carbonate)-vitamin D3 20 mcg (800 unit) tablet (Caltrate with Vitamin D3) meclizine 25 mg tablet (Motion 25 mg PO ONCE PRN As Needed Per 09/18/21 02/20/24 Sickness (meclizine)) Provider Orders ascorbic acid (vitamin C) 500 mg 500 mg PO DAILY 07/19/23 02/20/24 tablet (Vitamin C) folic acid 1 mg tablet 1 mg PO DAILY #30 tabs 01/06/24 02/20/24 telmisartan 80 mg tablet 80 mg PO DAILY #90 tabs 02/06/24 02/20/24 cholecalciferol (vitamin D3) 10 10 mcg PO DAILY 02/20/24 02/20/24 mcg (400 unit) tablet (Delta D3) magnesium 250 mg tablet 250 mg PO DAILY 02/20/24 02/20/24 rosuvastatin 20 mg tablet 20 mg PO HS 02/20/24 02/20/24 thiamine HCl (vitamin B1) 100 mg 100 mg PO DAILY 02/20/24 02/20/24 tablet acetaminophen 325 mg tablet 650 mg (2 x 325 mg) PO Q4HR PRN 02/21/24 Pain 1 to 4, or Fever #30 tabs clopidogrel 75 mg tablet (Plavix) 75 mg PO DAILY #30 tabs 02/21/24 pantoprazole 40 mg tablet,delayed 40 mg PO DAILY #30 tabs 02/21/24 release (Protonix) LABS 02/21/24 05:46 02/21/24 05:46 Discharge Plan Discharge Patient Disposition: Home, Self Care Condition: Stable Medically Cleared Date:: 02/21/24 Prescriptions: New acetaminophen 325 mg Tablet 650 mg PO Q4HR PRN (Reason: Pain 1 to 4, or Fever) Qty: 30 0RF pantoprazole [Protonix] 40 mg tablet,delayed release (DR/EC) 40 mg PO DAILY Qty: 30 2RF clopidogrel [Plavix] 75 mg tablet 75 mg PO DAILY Qty: 30 2RF Rx Instructions: DO NOT START UNTIL MARCH 06, 2024 Continued folic acid 1 mg tablet 1 mg PO DAILY Qty: 30 5RF telmisartan 80 mg tablet 80 mg PO DAILY Qty: 90 3RF calcium carbonate-vitamin D3 [Caltrate with Vitamin D3] 1 EACH tablet 1 tab PO DAILY meclizine [Motion Sickness (meclizine)] 25 MG tablet 25 mg PO ONCE PRN (Reason: As Needed Per Provider Orders) ascorbic acid (vitamin C) [Vitamin C] 500 MG tablet 500 mg PO DAILY 0RF rosuvastatin 20 mg tablet 20 mg PO HS thiamine HCl (vitamin B1) 100 mg tablet 100 mg PO DAILY magnesium 250 mg tablet 250 mg PO DAILY cholecalciferol (vitamin D3) [Delta D3] 10 mcg (400 unit) tablet 10 mcg PO DAILY Discontinued aspirin [Aspir-Low] 81 MG tablet,delayed release (DR/EC) 81 mg PO DAILY meloxicam 15 mg tablet 15 mg PO DAILY Patient Comments: TAKE ONE TABLET BY MOUTH ONE TIME DAILY Activity Restrictions: Activity as Tolerated Diet: Regular Health Concerns: You are a patient who has a history of stroke and because of that you take aspirin. Aspirin can cause ulcers in your stomach up to 6% of the time. Unfortunately, you were then put on another anti-inflammatory drug called meloxicam for your arthritis. Meloxicam can also cause increased risk of ulcers in your stomach. You then presented with dark dark stools. In the emergency room we found you to be having severe anemia. Putting together the anemia and the dark schools we think that you had ulcers induced from the medications you are taking. An upper GI/esophagogastroduodenoscopy confirmed that you have multiple small ulcers or erosions in your stomach. Small ulcers in your duodenum. You are not actively bleeding. You have not required blood transfusions. A normal amount of blood in a woman is up to 12 g of hemoglobin. When you were in the emergency room you were 8. Today you are 9.5. We do not transfuse unless you are below 7. We feel you are now stable to go home. For right now you cannot start medicine to reduce your risk of stroke. All of those medicines can cause you to bleed and I want your ulcers to heal before you start taking medication like that. When you resume the medication to reduce your risk of stroke, you cannot resume aspirin. Please start Plavix 75 mg a day. And start taking that on March 06. Please see your primary care provider in follow-up. ALEKSANDAR Morrow will need to recheck your hemoglobin to make sure your anemia is getting better. Because you are anemic, ALEKSANDAR Morrow may start you on an iron supplement. For the rest of her life you will not be able to take anything like aspirin, Aleve, Naprosyn, Motrin. All of these are nonsteroidal anti-inflammatory drugs for pain and inflammation. But all of these drugs can cause stomach ulcers. If you need to take a pain medicine [id number], it must be Tylenol. To help heal your ulcers I am giving you Protonix 40 mg. Once a day. He will take that tablet once a day. Do that for the next 2 to 3 months. Please see the surgeon in follow-up. They may want to repeat an endoscopy to make sure your ulcers have healed in the next 2 months. Print Language: Armenian Patient Instructions: Gastritis Tx, Gastritis, Gastric Ulcer Follow-up Care: Claire Morrow PA-C [Primary Care Provider] -
== END 2024-02-21 12:26 | disposition home or self-care (01) | DRG 378 ==
LOC: MS3 10:53 → ED 10:53 → MS3 15:00
PROVIDERS: ADMIT Internal Medicine; ATTEND Internal Medicine
DX: T39.395A Adverse effect of other nonsteroidal anti-inflammatory drugs [NSAID], initial encounter; R53.1 Weakness; D63.1 Anemia in chronic kidney disease; I69.320 Aphasia following cerebral infarction; K25.4 Chronic or unspecified gastric ulcer with hemorrhage; K25.0 Acute gastric ulcer with hemorrhage; I69.920 Aphasia following unspecified cerebrovascular disease; R42 Dizziness and giddiness; Z79.82 Long term (current) use of aspirin; D62 Acute posthemorrhagic anemia; I12.9 Hypertensive chronic kidney disease with stage 1 through stage 4 chronic kidney disease, or unspecified chronic kidney disease; M17.0 Bilateral primary osteoarthritis of knee; Z68.24 Body mass index [BMI] 24.0-24.9, adult; N18.32 Chronic kidney disease, stage 3b; R63.0 Anorexia; Y92.009 Unspecified place in unspecified non-institutional (private) residence as the place of occurrence of the external cause; G89.29 Other chronic pain